=== PATIENT | male | born 1970 | race Caucasian/White ===

== ENCOUNTER → 2018-01-31 09:48 | Outpatient (POV) | payer BC, SELFPAY | PROVIDERS: Visit Provider Otolaryngology | DX: Z00.00 Encounter for general adult medical examination without abnormal findings (principal) ==

== ENCOUNTER → 2019-06-19 09:59 | Outpatient (POV) | payer BC, SELFPAY | PROVIDERS: PCP Family Medicine; Visit Provider Dermatology | DX: Z00.00 Encounter for general adult medical examination without abnormal findings (principal) ==

== ENCOUNTER → 2019-11-30 09:35 | Outpatient (CLI) | payer BC, SELFPAY ==
--- NOTE | 2019-11-30 09:39 | XR_ITS ---
PROCEDURE: XR WRIST LT MIN 3V CLINICAL INDICATION: LT wrist pain Chronic wrist pain. History of carpal tunnel syndrome. COMPARISON: No exams were available for comparison FINDINGS: No fracture or dislocation. No lytic or blastic change. There is normal mineralization. The joint spaces are well-preserved. No significant degenerative/arthritic changes. No erosive changes evident. Other findings:None. IMPRESSION: 1. No acute findings. Dictated by: Keyon Ledezma 11/30/2019 10:16 Electronically signed by Keyon Ledezma in [facility] 11/30/2019 10:16
--- NOTE | 2019-11-30 10:57 | XR_ITS ---
PROCEDURE: XR CERVICAL SPINE 3V CLINICAL INDICATION: neck pain Chronic neck pain. COMPARISON: No exams were available for comparison FINDINGS: The cervical vertebra are visualized from C1-C7. No acute fracture is identified. Chronic appearing mild/moderate compression deformities of the cervical vertebra are seen at multiple levels. Mild/moderate degenerative disc/endplate spondylitic changes are seen at C3-C4 C5-C6, C6-C7 and C7-T1 levels. Other findings:The vertebral bodies maintain normal alignment. There is no prevertebral soft tissue swelling. IMPRESSION: 1. Osteopenia. Mild/moderate cervical vertebral compression deformities seen, likely chronic. 2. Multilevel mild/moderate degenerative cervical spondylosis. Dictated by: Keyon Ledezma 11/30/2019 11:36 Electronically signed by Keyon Ledezma in [facility] 11/30/2019 11:36
== END ==
PROVIDERS: PCP Family Medicine; Visit Provider Orthopaedic Surgery
DX: M54.2 Cervicalgia (principal); M25.532 Pain in left wrist; G56.00 Carpal tunnel syndrome, unspecified upper limb
CPT/HCPCS: 72040; 73110

== ENCOUNTER → 2019-12-27 14:47 | Outpatient (CLI) | payer BC, SELFPAY ==
--- NOTE | 2019-12-27 14:53 | CT_ITS ---
PROCEDURE: CT ABDOMEN PELVIS WO CON CLINICAL INDICATION: HEMATURIA COMPARISON: CT ABDPELW/O CT ABD PELVIS W/O CONTRAST from 05/06/2013 TECHNIQUE: Axial images obtained with sagittal and coronal reformats. All CT scans at the facility use one or more dose reduction, viz: automated exposure control, ma/kV adjustment per patient size (including targeted exams where dose is matched to indication, i.e. head), or iterative reconstruction technique. FINDINGS: LOWER THORAX: No acute finding ABDOMEN & PELVIS: There is mild hepatic steatosis. No focal liver lesion is evident. The spleen, adrenal glands, and pancreas have an unremarkable appearance. There is a horseshoe kidney. A 6.3 cm cyst is present along the posterior aspect of the right kidney. There is a 3 mm stone in the right moiety laterally. A 7 mm stone is present at the ureteral pelvic junction on the right with mild right-sided hydronephrosis. There is a 2 mm stone in the left moiety. No ureteral calculi evident. No evidence of appendicitis, intestinal obstruction, free air, or diverticulitis. There are scattered colonic diverticula. Central prostate calcification is noted. There is a small umbilical hernia which contains fat. There is multilevel degenerative changes of the thoracic and lumbar spine. IMPRESSION: 1. There is a horseshoe kidney present with bilateral renal calculi and a 7 mm right ureteropelvic junction stone with mild right renal moiety hydrocephalus. No ureteral calculi. 2. Right renal cyst. 3. Fatty liver Dictated by: Kamran Moralez MD 12/27/2019 17:50 Kamran Moralez MD in [facility] 12/27/2019 17:50
== END ==
PROVIDERS: PCP Family Medicine; Visit Provider Family Medicine
DX: R31.0 Gross hematuria (principal)
CPT/HCPCS: 74176

== ENCOUNTER → 2020-01-01 15:38 | Outpatient (CLI) | payer BC, SELFPAY ==
--- NOTE | 2020-01-01 15:42 | XR_ITS ---
PROCEDURE: XR KUB CLINICAL INDICATION: ureteral stone COMPARISON: CT CT ABDOMEN PELVIS WO CON from 12/27/2019 FINDINGS: Has a known horseshoe kidney. There is an 8 mm calcific density to the right of L4 consistent with the stone within the right renal moiety. In addition, there is a 3 cm rectangular shaped density to the right of L3 and may be due to overlying artifact. There are degenerative changes in the lumbar spine. No obvious ureteral calculi. IMPRESSION: Right-sided renal stone within the right renal moiety of the horseshoe kidney. Dictated by: Kamran Moralez MD 01/01/2020 16:04 Kamran Moralez MD in [place] 01/01/2020 16:04
== END ==
PROVIDERS: PCP Family Medicine; Visit Provider Urology
DX: N20.1 Calculus of ureter (principal)
CPT/HCPCS: 74018

== ENCOUNTER → 2020-01-24 12:49 | Outpatient (CLI) | payer BC, SELFPAY ==
[2020-01-24 14:02] LABS: Basophils % 0.6 % (0.1-2.0); Eosinophils # 0.2 K/mm3 (0.0-0.4); Eosinophils % 2.3 % (0.1-12.0); Hemoglobin 14.2 g/dL (14.1-18.0); Lymphocytes # 1.7 K/mm3 (0.7-4.5); Lymphocytes % 26.2 % (10-50); Mean Corpuscular HGB Conc 33.8 g/dL (31.8-35.4); Mean Corpuscular Hemoglobin 30.8 pg (27.0-31.2); Mean Corpuscular Volume 91.2 fl (80-94); Mean Platelet Volume 7.8 fl (7.4-10.4); Monocytes # 0.4 K/mm3 (0.1-1.0); Monocytes % 5.3 % (1.7-9.3); Neutrophils # 4.3 K/mm3 (1.8-7.8); Neutrophils % 65.5 % (37.0-80.0); Platelet Count 252 K/mm3 (142-424); Red Blood Count 4.61 M/mm3 (4.60-6.20); White Blood Count 6.5 K/mm3 (4.8-10.8)
[2020-01-24 14:35] LABS: Anion Gap 11.6 mEq/L (5-15); Blood Urea Nitrogen 16 mg/dl (9-20); Calcium 9.6 mg/dl (8.4-10.2); Carbon Dioxide 29 mmol/L (22.0-30.0); Chloride 105 mmol/L (98-107); Estimated Glomerular Filt Rate 103 ml/min (>60); GFR (African American) 124 ML/MIN (>60); Glucose 109 mg/dl (74-100); Potassium 4.6 mmoL/L (3.5-5.1); Sodium 141 mmol/L (136-145)
[2020-01-24 20:13] LABS: Coronavirus 19 IgG Antibody Negative (Negative); Coronavirus 19 IgM Antibody Negative (Negative)
== END ==
PROVIDERS: Visit Provider Urology
DX: Z01.89 Encounter for other specified special examinations (principal); R32 Unspecified urinary incontinence; N20.1 Calculus of ureter
CPT/HCPCS: 36415; 80048; 85025; 86328

== ENCOUNTER 2020-01-25 11:27 | Day surgery (SDC) | payer BC, SELFPAY ==
[2020-01-24 08:58] VITALS: BMI 47.5
[2020-01-25] VITALS (11 sets, daily range): BP systolic 121–155; BP diastolic 70–97; PULSE 54–66; RESP 14–18; TEMP 35.8–36.4; O2SAT 93–98
--- NOTE | 2020-01-25 13:53 | P.PN_ITS ---
[facility] Anesthesia Checklist - Patient Identification Patient Identification: Arm Band, Verbal (Name & ) - Structural Data Admitted From: Home Planned Operative Procedure/s: ESWL - NPO Status Verified Time NPO: 00:00 - Chart Verification Results Verified: CBC, BMP - Additional verifications Anesthesia Reactions: No Hx Blood Transfusions: No Blood Transfusion Reaction: No - Airway Assessment C-Spine Mobility Assessed: Yes (Thick neck, large tongue, supple, MP 4, ) TMJ Mobility Assessed: Yes Dentition: Good Dentition - Neurological Assessment Level of Consciousness: Awake, Alert, Appropriate, Follows Commands Hx Seizures: No Numbness or tingling in extremities: No - Anesthesia Plan Anesthesia Risk discussed: Yes Anesthesia Plan: Verified ASA Class: III Anesthesia Type: MAC [facility] History I have reviewed the patient's past medical history: Yes Medical History: Reports:: Asthma, Hypertension, Kidney Stones Denies:: Cancer, Diabetes Mellitus Type 1, Diabetes Mellitus Type 2, Internal Pacemaker, MRSA, Seizures *Have you ever received a pneumonia vaccine?: No *Have you received a flu vaccine this season?: No Other Medical History: Reports: Sinus Problems. Denies: Blood Transfusion Reaction Comment:: Morbid obesity, RADHA uses CPAP Anesthesia experience/problems:: none Laterality Cases: Bilateral: Myringotomy (Ear Tubes), Tonsillectomy Other Surgeries: Yes: No Previous Surgery, Colonoscopy, Other. No: Pacemaker Amputation: No Fractures: No - *Social History Last grade of school completed: High school graduate Smoking Status: Former smoker Tobacco Type: cigarettes Alcohol Intake: never Alcohol Intake Frequency:: other Substance Use Type: denies use *Occupational Status:: employed Housing: house Household Members: none *Travel in the last 8 weeks: Inside the [facility] Family Hx:: Hypertension, Cancer, Diabetes
--- NOTE | 2020-01-25 14:16 | HMH.ANESI ---
[facility] Anesthesia Record Part I Intake, IV Amount: 500 Estimated blood loss (mL): 0 Urine output (mL): 0 Blood Products used (#): none Blood Pressure: 155/79 SaO2: 95 Pulse Rate: 66 Respiratory Rate: 18 Temperature: 96.5 F Patient is:: Awake, Drowsy, Stable Stable to PACU at:: 14:12
--- NOTE | 2020-01-25 16:36 | P.OP_ITS ---
Date of procedure: 01/25/20 Pre-op Diagnosis:: 8 mm right proximal ureteral stone and a horseshoe kidney Post-op Diagnosis:: Same Procedure performed:: Right ESWL, cystoscopy with right ureteral stone manipulation Surgeon:: Prabhakar Bang MD SELF PROPELLED HOT MIX ROLLER OPERATOR:: hTien Martins Anesthesia: GETA Estimated blood loss (mL): 0 Clinical Note:: 49-year-old white male with a 8 mm proximal right ureteral stone. He denies any pain but has had some gross hematuria. CT scan is shown a horseshoe kidney. Operative findings:: Stone in the right proximal ureter. It was manipulated back into the renal pelvis. ESWL been performed. Operative note:: Patient taken to the operating room after informed consent was obtained. Is placed on the operating table in the supine position and general anesthesia administered. Preoperative antibiotics and sequential compression devices placed. He was then placed into the dorsolithotomy position and prepped and draped in the standard surgical fashion. The 22 Tamazight cystoscope then passed into the urethra and into the bladder. The bladder was examined in a systematic fashion and showed no evidence of mucosal abnormalities, stones or trabeculation. The ureteral orifices in the normal anatomic position. The right ureteral orifice was a little narrow but a 5 Tamazight ureteral catheter was able to be placed into the ureteral orifice and under fluoroscopy was passed up to the level of the stone. We were able to manipulate the stone more proximally and it passed upwards and to the right and into the renal pelvis. The cystoscope removed but we left ureteral catheter indwelling during the ESWL portion. Patient then placed into the supine position and positioned so that F2 the lithotripter was focused onto the 8 mm renal stone. 3000 shockwaves been delivered to the stone. Patient tolerated procedure well no complications. The ureteral catheter was removed at the end of the case. Condition: stable Disposition: PACU Specimens:: None Complications:: None
--- NOTE | 2020-01-25 17:54 | HMH.ANESII ---
[facility] Anesthesia Record Part II Discharge Time: 14:44 Destination: Surgical Day Care (OP Surgery) PACU nurse assessment reviewed?: Yes Patient Condition:: Good Anesthesia Complications:: None Swallowing reflex intact?: Yes Cyanosis?: No Blood Pressure: 150/97 Pulse Rate: 54 Temperature: 97.5 F Mental Status: Alert & Oriented Pain level:: 0 Nausea and/or vomitting:: None Intake, IV Amount: 0
== END 2020-01-25 15:35 | disposition home or self-care (01) ==
LOC: OR 11:27
PROVIDERS: PCP Family Medicine; Visit Provider Urology
PROC: (CPT 50590; principal; 2020-01-25 12:00)
DX: N20.1 Calculus of ureter (principal); Q63.1 Lobulated, fused and horseshoe kidney; Z87.442 Personal history of urinary calculi; J45.909 Unspecified asthma, uncomplicated; I10 Essential (primary) hypertension; G47.33 Obstructive sleep apnea (adult) (pediatric); E66.9 Obesity, unspecified; Z96.22 Myringotomy tube(s) status; Z87.891 Personal history of nicotine dependence; Z68.42 Body mass index [BMI] 45.0-49.9, adult; Z88.8 Allergy status to other drugs, medicaments and biological substances; Z79.899 Other long term (current) drug therapy
CPT/HCPCS: 50590; 52341; 52330; 96374; J2405

== ENCOUNTER → 2020-02-08 13:48 | Outpatient (CLI) | payer BC, SELFPAY ==
--- NOTE | 2020-02-08 13:56 | XR_ITS ---
PROCEDURE: XR KUB CLINICAL INDICATION: uretheral stone Status post stone extraction COMPARISON: CT CT ABDOMEN PELVIS WO CON from 12/27/2019 FINDINGS: There is history of horseshoe kidney with a stone in the right renal moiety at the UV junction. No definite stone apparent. Hyperostosis is present at the iliac crest. Degenerative changes lumbar spine. IMPRESSION: No obvious renal or ureteral calculus evident. Dictated by: Kamran Moralez MD 02/08/2020 17:02 Kamran Moralez MD in [place] 02/08/2020 17:02
== END ==
PROVIDERS: PCP Family Medicine; Visit Provider Urology
DX: N21.1 Calculus in urethra (principal)
CPT/HCPCS: 74018

== ENCOUNTER → 2020-02-08 16:30 | Outpatient (CLI) | payer BC, SELFPAY ==
[2020-02-17 18:19] LABS: Specimen Type STONE
[2020-02-17 18:22] LABS: Ammonium acid urate 0; Ca oxalate dihydrate 100%; Calcium bilirubinate 0; Calcium carbonate 0; Calcium phosphate 0; Cholesterol 0; Magnesium ammon phos 0; Sodium acid urate 0; Uric acid dihydrate 0
[2020-02-17 18:23] LABS: Photo SCANNED RESULTS
== END ==
PROVIDERS: Visit Provider Urology
DX: N21.1 Calculus in urethra (principal)
CPT/HCPCS: 82370

== ENCOUNTER → 2020-03-31 11:49 | Outpatient (CLI) | payer BC, SELFPAY ==
[2020-03-31 11:52] LABS: MANUAL DIFFERENTIAL MANUAL DIFFERENTIAL (MANUAL DIFF)
[2020-03-31 12:26] LABS: Basophils # 0.1 K/mm3 (0-0.2); Basophils % 0.9 % (0.1-2.0); Eosinophils # 0.1 K/mm3 (0.0-0.4); Eosinophils % 1.9 % (0.1-12.0); Hematocrit 44.4 % (42.0-52.0); Hemoglobin 15.2 g/dL (14.1-18.0); Lymphocytes # 1.9 K/mm3 (0.7-4.5); Lymphocytes % 26.3 % (10-50); Mean Corpuscular HGB Conc 34.2 g/dL (31.8-35.4); Mean Corpuscular Hemoglobin 30.6 pg (27.0-31.2); Mean Corpuscular Volume 89.3 fl (80-94); Mean Platelet Volume 7.6 fl (7.4-10.4); Monocytes # 0.5 K/mm3 (0.1-1.0); Monocytes % 6.6 % (1.7-9.3); Neutrophils # 4.7 K/mm3 (1.8-7.8); Neutrophils % 64.3 % (37.0-80.0); Platelet Count 272 K/mm3 (142-424); Red Blood Count 4.97 M/mm3 (4.60-6.20); Red Cell Distribution Width 13.9 % (11.5-17.5); White Blood Count 7.2 K/mm3 (4.8-10.8)
[2020-03-31 13:35] LABS: Chloride 105 mmol/L (98-107); Potassium 3.9 mmoL/L (3.5-5.1); Sodium 140 mmol/L (136-145)
[2020-03-31 13:38] LABS: Alanine Aminotransferase 70 U/L (12-78); Albumin Level 4.3 g/dl (3.5-5.0); Albumin/Globulin Ratio 1.9 (1.1-1.8); Alkaline Phosphatase 74 U/L (38-126); Aspartate Amino Transferase 52 U/L (17-59); Bilirubin,Total 0.7 mg/dl (0.2-1.3); Blood Urea Nitrogen 12 mg/dl (9-20); Carbon Dioxide 29 mmol/L (22.0-30.0); Estimated Glomerular Filt Rate 103 ml/min (>60); GFR (African American) 124 ML/MIN (>60); Globulin 2.3 g/dL (1.3-3.2); Total Protein,Serum 6.6 g/dl (6.3-8.2)
[2020-03-31 13:39] LABS: Calcium 9.5 mg/dl (8.4-10.2); Glucose 93 mg/dl (74-100)
[2020-03-31 13:53] LABS: Coronavirus 19 IgG Antibody Negative (Negative); Coronavirus 19 IgM Antibody Negative (Negative)
[2020-03-31 15:17] LABS: Lymphocytes % 39 % (10-50); Monocytes % 9 % (2-9); Neutrophils % 52 % (42-76); Platelet Estimate Normal; Total Cells Counted 100
[2020-03-31 15:18] LABS: RBC Morphology Normal
--- NOTE | 2020-04-01 08:52 | P.PN_ITS ---
[facility] Anesthesia Checklist - Patient Identification Patient Identification: Arm Band, Verbal (Name & ) - Structural Data Admitted From: Home Planned Operative Procedure/s: Left CTR Consent for Planned Operative Procedure(s) Verified: Yes Verified Documents: Surgical Consent, History and Physical - NPO Status Verified Time NPO: 23:30 - Chart Verification Results Verified: CBC, BMP - Additional verifications Anesthesia Reactions: No Hx Blood Transfusions: No Blood Transfusion Reaction: No - Airway Assessment C-Spine Mobility Assessed: Yes (MP 3, thick neck, large tongue) TMJ Mobility Assessed: Yes Dentition: Good Dentition - Neurological Assessment Level of Consciousness: Awake, Alert, Appropriate, Follows Commands Hx Seizures: No Numbness or tingling in extremities: No - Anesthesia Plan Anesthesia Risk discussed: Yes Anesthesia Plan: Verified ASA Class: III Anesthesia Type: MAC [facility] History I have reviewed the patient's past medical history: Yes Medical History: Reports:: Asthma, Coronary Artery Disease, Hypertension, Kidney Stones Denies:: Cancer, Diabetes Mellitus Type 1, Diabetes Mellitus Type 2, Internal Pacemaker, MRSA, Seizures *Have you ever received a pneumonia vaccine?: No *Have you received a flu vaccine this season?: Yes Other Medical History: Reports: Sinus Problems, Thyroid Disease. Denies: Blood Transfusion Reaction Comment:: RADHA uses CPAP, morbid obesity Anesthesia experience/problems:: None Laterality Cases: Bilateral: Myringotomy (Ear Tubes), Tonsillectomy Other Surgeries: Yes: Colonoscopy, Ureter Stent, Other. No: Pacemaker Amputation: No Fractures: No - *Social History Smoking Status: Never smoker Tobacco Type: cigarettes Alcohol Intake: never Alcohol Intake Frequency:: other Substance Use Type: denies use *Occupational Status:: employed Housing: house Household Members: none *Travel in the last 8 weeks: None Family Hx:: Hypertension, Cancer, Diabetes
== END ==
PROVIDERS: Visit Provider Orthopaedic Surgery
DX: Z01.818 Encounter for other preprocedural examination (principal); G56.02 Carpal tunnel syndrome, left upper limb
CPT/HCPCS: 36415; 80053; 85007; 85014; 85018; 85048; 85049; 86328

== ENCOUNTER 2020-04-01 06:10 | Day surgery (SDC) | payer BC, SELFPAY ==
[2020-03-25 13:00] VITALS: BMI 48.3
[2020-04-01 06:28] VITALS: BP 149/80; PULSE 60; RESP 20; TEMP 36.1; O2SAT 97
[2020-04-01 07:10] VITALS: PULSE 59; PULSE 60
[2020-04-01 08:50] VITALS: BP 136/78; PULSE 71; RESP 16; TEMP 36.5; O2SAT 95
[2020-04-01 09:00] VITALS: BP 133/85; PULSE 71; RESP 16; O2SAT 94
[2020-04-01 09:10] VITALS: BP 135/85; PULSE 68; RESP 16; O2SAT 94
[2020-04-01 09:20] VITALS: BP 137/87; PULSE 68; RESP 16; TEMP 36.5; O2SAT 94
--- NOTE | 2020-04-01 16:23 | HMH.OPNOTE ---
Date of procedure: 04/01/20 Pre-op Diagnosis:: LEFT median nerve compression at the wrist (carpal tunnel syndrome) Post-op Diagnosis:: LEFT median nerve compression at the wrist (carpal tunnel syndrome) Procedure performed:: LEFT carpal tunnel release Surgeon:: Calli Peña MD Packing Tractor Machine Operator(s):: Erica Sandra PLANT DIRECTOR:: Thien Martins Anesthesia: MAC, local Estimated blood loss (mL): 5 Clinical Note:: 49-year-old [id number]-yrubspwa gentleman with left upper extremity pain, numbness and tingling. He says that he was diagnosed with carpal tunnel syndrome 20 years ago and did not have any treatment at that time. It subsequently got better and he did well for many years, but he has had around 6 months of pain, numbness and tingling on the radial side of the left hand, extending up the radial side of the wrist. It does wake him up at night, and has not been improved by brace wear. The brace appears to make his pain worse. He has tried NSAIDs and ice as well with no improvement. Medical history significant for hypertension, hypercholesterolemia, asthma, and seasonal allergies. No history of diabetes or other endocrine abnormalities. He is a non-smoker, BMI is 47. He reports a history of chronic neck pain and a remote history of a cervical compression fracture that was treated nonoperatively. EMG-NCS BUE at [facility] 12/24/19 showed evidence of bilateral carpal tunnel syndrome, electrophysiologically moderate. I discussed treatment options with the patient, who desires surgical intervention; I believe this is warranted given duration/severity of symptoms and EMG-NCS findings. I discussed the risks of surgery, including but not limited to: bleeding, infection, neurovascular damage, wound dehiscence, persistence of symptoms despite surgery, recurrence of CTS and need for revision surgery in the future. The patient vocalized understanding and provided informed consent for the procedure. Operative findings:: median nerve entrapment at the left wrist Operative note:: The patient was identified in preoperative holding and the L wrist signed by myself. He was then seen by anesthesia and the decision was made to perform the surgery with local anesthesia and MAC. I reviewed the consent with the patient and all questions were answered. The patient was then taken to the OR where he was placed supine on the operative table with a hand table attached. 3g of Ancef were infused intravenously and light sedation administered. The left arm was prepped and draped in the usual sterile fashion. Timeout was performed, identifying the correct patient, correct procedure, and correct site. Local anesthesia was then administered sterilely with 10cc 0.5% marcaine without epinephrine. The procedure was begun by using anatomic landmarks to draw the desired surgical incision with marking pen. The incision was drawn over the volar aspect of the left wrist at the intersection of Shay's cardinal line and the radial border of the ring finger, extending proximally to the wrist flexion crease. The arm was exsanguinated wtih an Esmarch and the tourniquet inflated to 250mmHg. Incision was made with a 15 blade over the previously delineated incision. After the skin was incised, a blunt-tipped tenotomy scissors was used to bluntly spread the subcutaneous tissue. Tissue was spread until the transverse carpal ligament was identified. The proximal margin of the ligament was palpated with a [place] elevator. I was able to slip the tip of the free air under the proximal edge of the transverse carpal ligament and into the carpal tunnel. Using a fresh 15 blade, I lightly teased to the fibers of the transverse carpal ligament and release them from proximally to distally using the [place] to protect the underlying carpal tunnel contents. I continued to cut down onto the [place] moving distally, until the entire transverse carpal ligament was released. Then, using the blunt tenotomy scissors, I push cut around 5 mm of
== END 2020-04-01 09:28 | disposition home or self-care (01) ==
LOC: OR 06:11
PROVIDERS: PCP Family Medicine; Visit Provider Orthopaedic Surgery
PROC: (CPT 64721; principal; 2020-04-01 07:30)
DX: G56.02 Carpal tunnel syndrome, left upper limb (principal); Z79.899 Other long term (current) drug therapy
CPT/HCPCS: 64721; 94640; 96374

== ENCOUNTER 2020-04-07 13:14 | Emergency (ER) | payer BC, SELFPAY ==
[2020-04-07 13:50] VITALS: BP 146/92; PULSE 76; RESP 19; TEMP 36.6; O2SAT 97; BMI 48.3
--- NOTE | 2020-04-07 14:18 | HMH.EDUTC ---
[facility] [place] Clinical Impression: Exposure to COVID-19 virus, Encounter for laboratory testing for COVID-19 virus URI (upper respiratory infection) Qualifiers: URI type: unspecified URI Qualified Code(s): J06.9 - Acute upper respiratory infection, unspecified Disposition: Home, Self-Care Condition on Discharge: Good Instructions: Preventing the Spread of Coronavirus Discharge Instructions Additional Instructions: *Monitor Temp, Over the counter Motrin or Tylenol as directed/as needed Tylenol every 4 hours and Motrin every 6 hours (as long as your family doctor has told you that you can take it) for fever or pain. and straight to ER if unable to lower temp less than 101.0 after medication given *Warm salt water gargles may help to soothe the throat *Throat Lozenges *Warm fluids like tea with honey may help to soothe the throat *Sleep elevated *Humidifier/Vaporizer Follow up IMMEDIATELY for new or worsening symptoms or no Noticeable improvement over the next 48-72 hours. 911 for difficulty breathing or swallowing You were tested for today for COVID19 your test result should be back in the next 24-48 hours, you may call to the [facility] to see if your test results are back in the next 48 hours [phone] [facility] hours are 9am-9pm You was given a handout with instructions for Self Quarantine and Self isolation for while you wait on test results and what to do if they are positive If you are positive the Health Dept will be contacting you also Prescriptions: Azithromycin [Zithromax 250mg tab] 250 mg PO DIRECTED #6 tab Transmission Status: Pending to [facility] Referrals: Brock Edwards MD [Primary Care Provider] - As needed Forms: Work/School Release Time of Disposition: 14:19 Medical Decision Making - Eric Inquiry Pt receiving controlled substance: No Eric was queried for this patient: No Vital Signs: 04/07/20 13:50 Temperature 97.8 F Temperature Source Oral Pulse Rate [Left] 76 Respiratory Rate 19 Blood Pressure [Right Arm] 146/92 H Blood Pressure Mean [Right Arm] 110 Blood Pressure Source [Right Arm] Automatic Cuff Blood Pressure Position [Right Arm] Sitting 02 Sat by Pulse Oximetry 97 Oxygen Delivery Method Room Air Orders (Tests/Meds): ORDERS Category Date Time Status Covid-19 Nasal PCR Sendout [facility] 04/07/20 13:30 Received Medical Decision Narrative: Patient states that he has taken azithromycin in the past without complications or reactions [facility] [place] - General Stated complaint: exposure,cough,achey,loss of taste and smell Time Seen by Provider: 04/07/20 14:18 Source of Information: Patient Limitations: No Limitations Description of Symptoms (Recalled from Triage Doc. by RN): Covid testing-symptomatic- HEENT Symptoms (Recalled from RN notes): No Resp Symptoms (Recalled from RN notes): No Skin Symptoms (Recalled from RN notes): No MS Symptoms (Recalled from RN notes): No Functional Status (Recalled from RN notes): wnl - History of Present Illness Provider Complaint: Patient states that he wanted to get tested for COVID States that he has been having body aches, chills, sinus pain and pressure and was recently around family member that has since tested positive State that he is having similary symptoms like he has when he has sinus infection - Related Data Home Medications Medication Instructions Recorded Confirmed montelukast 10 mg tablet 10 mg PO QPM 03/08/18 04/01/20 allopurinol 100 mg tablet 300 mg PO DAILY tab 12/30/18 04/01/20 losartan 100 mg tablet 100 mg PO DAILY 12/30/18 04/01/20 levocetirizine 5 mg tablet 5 mg PO DAILY 03/24/19 04/01/20 budesonide-formoterol HFA 80 2 puff INHALATION BID 11/30/19 04/01/20 mcg-4.5 mcg/actuation aerosol inhaler fluticasone propionate 50 2 spray INTRANASAL DAILY 11/30/19 04/01/20 mcg/actuation nasal spray,suspension liraglutide (weight loss) 3 mg/0.5 3 mg SQ DAILY 11/30/19 04/01/20 mL (18 mg/
[2020-04-07 14:46] VITALS: BP 146/92; PULSE 76; RESP 19; TEMP 36.6; O2SAT 97
[2020-04-09 13:51] LABS: Covid-19 Nasal PCR Sendout Lex POSITIVE
--- NOTE | 2020-04-09 13:55 | PC.NURSE ---
Patient notified of positive COVID results. Educated on quarantine.
== END 2020-04-07 14:46 | disposition home or self-care (01) ==
PROVIDERS: Emergency Provider Nurse Practitioner; PCP Family Medicine
DX: U07.1 COVID-19 (principal); I10 Essential (primary) hypertension; Z79.899 Other long term (current) drug therapy; I25.10 Atherosclerotic heart disease of native coronary artery without angina pectoris; Z88.8 Allergy status to other drugs, medicaments and biological substances; Z87.442 Personal history of urinary calculi
CPT/HCPCS: 99201; U0004

== ENCOUNTER → 2020-07-08 11:10 | Outpatient (CLI) | payer BC, SELFPAY ==
--- NOTE | 2020-07-08 11:15 | XR_ITS ---
PROCEDURE: XR KNEE LT 3V CLINICAL INDICATION: ACUTE PAIN OF LT KNEE COMPARISON: No exams were available for comparison FINDINGS: Medial and lateral joint space appear normal. There is a tiny faint bone density adjacent to the medial tibial spine which could be a tiny non recent osteochondral fracture. There is minor spurring of the lateral tibial spine. There is no significant narrowing of the patellofemoral space and there is no definite effusion. There is a small ossification or possibly phlebolith in the subcutaneous tissues lateral thigh at approximately the diametaphyseal level. IMPRESSION: Minor degenerate change, no acute findings Dictated by: Dr. Brandan Reis MD 07/08/2020 13:47 Dr. Brandan Reis MD in [place] 07/08/2020 13:47
== END ==
PROVIDERS: PCP Family Medicine; Visit Provider Family Medicine
DX: M25.562 Pain in left knee (principal)
CPT/HCPCS: 73562

== ENCOUNTER → 2021-01-21 12:06 | Outpatient (CLI) | payer BC, SELFPAY ==
--- NOTE | 2021-01-21 12:15 | XR_ITS ---
PROCEDURE: XR CHEST 2V CLINICAL HISTORY: sob COMPARISON: CR CXR CHEST(2 VIEWS-NOT PORTABLE) from 05/06/2013 CR CXR CHEST(2 VIEWS-NOT PORTABLE) from 05/07/2016 FINDINGS: The cardiomediastinal silhouette and pulmonary vascularity are within normal limits. The lungs are clear without infiltrates, suspicious nodules, or pleural effusions. Old granulomatous disease Degenerative changes thoracic spine IMPRESSION: No change with no acute finding Dictated by: Kamran Moralez MD 01/21/2021 18:07 Kamran Moralez MD in [place] 01/21/2021 18:07
[2021-01-21 12:29] LABS: Basophils # 0.1 K/mm3 (0-0.2); Basophils % 1.5 % (0.1-2.0); Eosinophils # 0.2 K/mm3 (0.0-0.4); Eosinophils % 2.2 % (0.1-12.0); Hematocrit 43.8 % (42.0-52.0); Hemoglobin 14.8 g/dL (14.1-18.0); Lymphocytes % 29.4 % (10-50); Mean Corpuscular HGB Conc 33.8 g/dL (31.8-35.4); Mean Corpuscular Hemoglobin 31.6 pg (27.0-31.2); Mean Corpuscular Volume 93.4 fl (80-94); Mean Platelet Volume 8.7 fl (7.4-10.4); Monocytes # 0.4 K/mm3 (0.1-1.0); Monocytes % 6.2 % (1.7-9.3); Neutrophils # 4.1 K/mm3 (1.8-7.8); Neutrophils % 60.7 % (37.0-80.0); Platelet Count 265 K/mm3 (142-424); Red Blood Count 4.69 M/mm3 (4.60-6.20); Red Cell Distribution Width 13.8 % (11.5-17.5); White Blood Count 6.8 K/mm3 (4.8-10.8)
[2021-01-21 12:41] LABS: D-Dimer 0.62 ug/mL (0.0-0.5)
[2021-01-25 08:17] LABS: D001-IgE D pteronyssinus 0.37 kU/L (Class I); D002-IgE D farinae 0.41 kU/L (Class I); E001-IgE Cat Dander 0.77 kU/L (Class II); E005-IgE Dog Dander 1.26 kU/L (Class II); E072-IgE Mouse Urine <0.10 kU/L (Class 0); G002-IgE Bermuda Grass 2.81 kU/L (Class III); G006-IgE Timothy Grass 3.67 kU/L (Class III); I006-IgE Cockroach, German 2.76 kU/L (Class III); Immunoglobulin E, Total 751 IU/mL (6-495); M001-IgE Penicillium chrysogen <0.10 kU/L (Class 0); M002-IgE Cladosporium herbarum <0.10 kU/L (Class 0); M003-IgE Aspergillus fumigatus <0.10 kU/L (Class 0); M006-IgE Alternaria alternata <0.10 kU/L (Class 0); T001-IgE Maple/Box Elder 1.84 kU/L (Class III); T003-IgE Common Silver Birch 0.71 kU/L (Class II); T006-IgE Cedar, Mountain 0.98 kU/L (Class II); T007-IgE Oak, White 2.21 kU/L (Class III); T008-IgE Elm, American 1.96 kU/L (Class III); T010-IgE Walnut 2.24 kU/L (Class III); T011-IgE Maple Leaf Sycamore 1.82 kU/L (Class III); T014-IgE Cottonwood 0.92 kU/L (Class II); T015-IgE Ash, White 2.54 kU/L (Class III); T022-IgE Pecan, Hickory 1.28 kU/L (Class II); T070-IgE White Mulberry 0.94 kU/L (Class II); W001-IgE Ragweed, Short 3.29 kU/L (Class III); W011-IgE Thistle, Russian 4.41 kU/L (Class IV); W014-IgE Pigweed, Common 2.01 kU/L (Class III); W018-IgE Sheep Sorrel 4.37 kU/L (Class IV)
== END ==
PROVIDERS: Visit Provider Internal Medicine Pulmonary Disease
DX: Z86.16 Personal history of COVID-19 (principal); J45.909 Unspecified asthma, uncomplicated; Z20.828 Contact with and (suspected) exposure to other viral communicable diseases
CPT/HCPCS: 36415; 71046; 82785; 85025; 85378; 86003

== ENCOUNTER → 2021-01-27 09:41 | Outpatient (CLI) | payer BC, SELFPAY ==
--- NOTE | 2021-01-27 09:41 | NM_ITS ---
PROCEDURE: NM PUL VENT AND PERFUSE CLINICAL INDICATION: elevated DImer COMPARISON: No exams were available for comparison TECHNIQUE: Dose 35.1 mCi technetium DTPA inhaled 8.57 mCi technetium MAA IV FINDINGS: No mismatching defects evident. There was normal localization of radiopharmaceutical in ventilation and perfusion images. No clumping of the radiopharmaceutical centrally. IMPRESSION: Normal. Dictated by: Kamran Moralez MD 01/27/2021 16:23 Kamran Moralez MD in [facility] 01/27/2021 16:23
--- NOTE | 2021-01-27 10:41 | XR_ITS ---
PROCEDURE: XR CHEST 2V CLINICAL HISTORY: COMPARISON: CR CXR CHEST(2 VIEWS-NOT PORTABLE) from 05/06/2013 CR CXR CHEST(2 VIEWS-NOT PORTABLE) from 05/07/2016 CR XR CHEST 2V from 01/21/2021 FINDINGS: The cardiomediastinal silhouette and pulmonary vascularity are within normal limits. The lungs are clear without infiltrates, suspicious nodules, or pleural effusions. There are degenerative changes in the thoracic with mild chronic wedging of multiple thoracic vertebra with degenerative disc disease. IMPRESSION: No change with no acute finding. Dictated by: Kamran Moralez MD 01/27/2021 11:40 Kamran Moralez MD in [facility] 01/27/2021 11:40
== END ==
PROVIDERS: PCP Family Medicine; Visit Provider Internal Medicine Pulmonary Disease
DX: R06.00 Dyspnea, unspecified (principal); R79.89 Other specified abnormal findings of blood chemistry
CPT/HCPCS: 71046; 78582; A9540; A9567

== ENCOUNTER → 2021-02-24 07:43 | Outpatient (CLI) | payer BC, SELFPAY ==
[2021-02-24 08:30] VITALS: PULSE 64; PULSE 66
== END ==
PROVIDERS: PCP Family Medicine; Visit Provider Internal Medicine Pulmonary Disease
DX: R06.09 Other forms of dyspnea (principal)
CPT/HCPCS: 94060; 94640; 94727; 94729

== ENCOUNTER → 2021-03-09 11:05 | Outpatient (CLI) | payer BC, SELFPAY | PROVIDERS: Visit Provider Surgery | DX: Z01.812 Encounter for preprocedural laboratory examination (principal); Z11.52 Encounter for screening for COVID-19; Z12.11 Encounter for screening for malignant neoplasm of colon; K62.5 Hemorrhage of anus and rectum | CPT/HCPCS: C9803; U0003; U0005 ==

== ENCOUNTER 2021-03-11 10:24 | Day surgery (SDC) | payer BC, SELFPAY ==
[2021-03-06 10:26] VITALS: BMI 48.6
[2021-03-11 10:48] VITALS: BP 155/87; PULSE 56; RESP 18; TEMP 36.3; O2SAT 98
[2021-03-11 10:57] VITALS: O2SAT 98
--- NOTE | 2021-03-11 11:32 | HMH.ANESCL ---
[facility] Anesthesia Checklist - Patient Identification Patient Identification: Arm Band - Structural Data Admitted From: Home Planned Operative Procedure/s: colonoscopy Consent for Planned Operative Procedure(s) Verified: Yes Verified Documents: Surgical Consent, History and Physical - NPO Status Verified Time NPO: 00:00 - Additional verifications Anesthesia Reactions: No Hx Blood Transfusions: No Blood Transfusion Reaction: No - Airway Assessment C-Spine Mobility Assessed: Yes (mp2) TMJ Mobility Assessed: Yes Dentition: Good Dentition - Neurological Assessment Level of Consciousness: Awake, Alert - Anesthesia Plan Anesthesia Risk discussed: Yes Anesthesia Plan: Verified ASA Class: III Anesthesia Type: MAC [facility] History I have reviewed the patient's past medical history: Yes Medical History: Reports:: Asthma, Coronary Artery Disease, Hypertension, Kidney Stones Denies:: Cancer, Diabetes Mellitus Type 1, Diabetes Mellitus Type 2, Internal Pacemaker, MRSA, Seizures *Have you ever received a pneumonia vaccine?: No *Have you received a flu vaccine this season?: Yes Other Medical History: Reports: Sinus Problems, Thyroid Disease. Denies: Blood Transfusion Reaction Anesthesia experience/problems:: nac Laterality Cases: Left: Carpal Tunnel Release, Bilateral: Myringotomy (Ear Tubes), Tonsillectomy Other Surgeries: Yes: Colonoscopy, Ureter Stent, Other. No: Pacemaker Amputation: No Fractures: No - *Social History Last grade of school completed: High school graduate Smoking Status: Never smoker Tobacco Type: cigarettes Alcohol Intake: current Alcohol Intake Frequency:: holidays/special occasions only Substance Use Type: denies use *Occupational Status:: employed Housing: house Household Members: none *Travel in the last 8 weeks: None Family Hx:: Hypertension, Cancer, Diabetes
--- NOTE | 2021-03-11 11:36 | HMH.SCOPE ---
- Procedure: Date: 03/11/21 Patient Date of :: 1970 Procedure Performed:: Total colonoscopy Indications:: Patient is a 50-year-old male referred by Dr. Edwards for colonoscopy for rectal bleeding. I had performed colonoscopy on the patient in 2008 for rectal bleeding. I performed follow-up colonoscopy on 03/02/2016 for stool frequency and he was found to have no evidence of any adenomatous polyps. 5-year colonoscopy was recommended. Patient states that for the past several months he has had rectal bleeding with stools. This is characterized as some fresh blood and occasionally clots. Performing Provider:: Franklin Barrera MD Referring Provider:: Brock Edwards MD Sedation:: MAC sedation Procedure:: Patient was taken to endoscopy procedure room. He was positioned in lateral decubitus position. Adequate intravenous sedation was achieved with anesthesia titration of propofol. Variable stiffness Olympus colonoscope was inserted via the anus. It Was advanced to the cecum. Colonic preparation was excellent. There was good visualization. Colonoscope was slowly withdrawn through the colon with careful surveillance. He did have some degree of pandiverticulosis. There was no evidence of any diverticulitis or bleeding. Retroflexion within the rectum revealed minimal inflamed internal hemorrhoids. Hemorrhoids appeared to be more inflamed and irritated with nonretroflexion visualization. No evidence of any definite bleeding. Colonoscope was withdrawn. Findings:: Some pandiverticulosis Hemorrhoids Recommendations:: Likely source of his bleeding is hemorrhoidal. If this persists may treat medically. Complications:: None immediately apparent Estimated blood obtained (mL): 0
[2021-03-11 11:38] VITALS: BP 143/87; PULSE 64; RESP 18; TEMP 36.7; O2SAT 95
[2021-03-11 11:48] VITALS: BP 132/88; PULSE 61; RESP 18; O2SAT 94
[2021-03-11 11:58] VITALS: BP 140/67; PULSE 57; RESP 18; O2SAT 95
[2021-03-11 12:08] VITALS: BP 143/82; PULSE 51; RESP 18; O2SAT 96
== END 2021-03-11 12:08 | disposition home or self-care (01) ==
LOC: OUTP 10:25
PROVIDERS: PCP Family Medicine; Visit Provider Surgery
PROC: 0DJD8ZZ Inspection of Lower Intestinal Tract, Via Natural or Artificial Opening Endoscopic (ICD-10-PCS; CPT 45378; principal; 2021-03-11 11:30)
DX: K57.32 Diverticulitis of large intestine without perforation or abscess without bleeding (principal); K64.9 Unspecified hemorrhoids; J45.909 Unspecified asthma, uncomplicated; I25.10 Atherosclerotic heart disease of native coronary artery without angina pectoris; I10 Essential (primary) hypertension; E07.9 Disorder of thyroid, unspecified; Z88.8 Allergy status to other drugs, medicaments and biological substances; Z79.899 Other long term (current) drug therapy
CPT/HCPCS: 45378

== ENCOUNTER → 2021-05-29 11:43 | Outpatient (CLI) | payer BC, SELFPAY ==
[2021-05-30 14:56] LABS: Covid-19 Nasal PCR Sendout Lex POSITIVE
== END ==
PROVIDERS: PCP Nurse Practitioner; Visit Provider Nurse Practitioner
DX: U07.1 COVID-19 (principal)
CPT/HCPCS: C9803; U0004; U0005

== ENCOUNTER → 2021-07-08 19:35 | Outpatient (CLI) | payer BC, SELFPAY | PROVIDERS: PCP Family Medicine; Visit Provider Nurse Practitioner Family | DX: G47.33 Obstructive sleep apnea (adult) (pediatric) (principal) | CPT/HCPCS: 95811 ==

== ENCOUNTER → 2021-08-11 07:37 | Outpatient (CLI) | payer SELFPAY ==
--- NOTE | 2021-08-11 07:37 | CT_ITS ---
FINAL REPORT TECHNIQUE: Thin section axial images were obtained through the heart and coronary arteries per CT coronary calcium score protocol. This study was performed with techniques to keep radiation doses as low as reasonably achievable (ALARA). Individualized dose reduction techniques using automated exposure control or adjustment of mA and/or kV according to the patient's size were employed. CLINICAL HISTORY: dyspnea FINDINGS: On the axial images, no calcification is identified. This gives a coronary artery calcium score of 0 based on the Agatston scale. This coronary calcium score places the patient within the 0 percentile based on age and gender. The heart is normal in size. There is no pleural or pericardial effusion. Limited evaluation of the lungs reveal no suspicious nodule. IMPRESSION: Coronary artery calcium score in the 0 percentile. Reviewed, Interpreted and Dictated by Chirag Mcpherson MD Transcribed by Tejal Kenyon Authenticated by Chirag Mcpherson MD on 08/11/2021 11:38:30 AM [facility]
== END ==
PROVIDERS: PCP Family Medicine; Visit Provider Internal Medicine Cardiovascular Disease
DX: Z13.6 Encounter for screening for cardiovascular disorders (principal); R06.00 Dyspnea, unspecified; E11.9 Type 2 diabetes mellitus without complications; I10 Essential (primary) hypertension; R60.9 Edema, unspecified; E66.01 Morbid (severe) obesity due to excess calories; R94.31 Abnormal electrocardiogram [ECG] [EKG]; G47.33 Obstructive sleep apnea (adult) (pediatric); Z68.43 Body mass index [BMI] 50.0-59.9, adult
CPT/HCPCS: 75571

== ENCOUNTER → 2021-08-11 08:04 | Outpatient (CLI) | payer BC, SELFPAY ==
[2021-08-11 09:17] LABS: Chloride 107 mmol/L (98-107); Potassium 4.1 mmoL/L (3.5-5.1); Sodium 139 mmol/L (136-145)
[2021-08-11 09:20] LABS: Anion Gap 7.1 mEq/L (5-15); Blood Urea Nitrogen 16 mg/dl (9-20); Calcium 8.5 mg/dl (8.4-10.2); Carbon Dioxide 29 mmol/L (22.0-30.0); Estimated Glomerular Filt Rate 102 ml/min (>60); GFR (African American) 123 ML/MIN (>60); Glucose 95 mg/dl (74-100)
[2021-08-11 09:30] LABS: NT Pro Brain Natriuretic Pep. 23.2 pg/mL (0-125)
== END ==
PROVIDERS: Visit Provider Internal Medicine Cardiovascular Disease
DX: R06.00 Dyspnea, unspecified (principal); I11.0 Hypertensive heart disease with heart failure; I50.9 Heart failure, unspecified; E66.01 Morbid (severe) obesity due to excess calories; R60.9 Edema, unspecified; G47.33 Obstructive sleep apnea (adult) (pediatric); R94.31 Abnormal electrocardiogram [ECG] [EKG]; Z68.43 Body mass index [BMI] 50.0-59.9, adult
CPT/HCPCS: 36415; 80048; 83880

== ENCOUNTER → 2021-08-14 06:16 | Outpatient (CLI) | payer BC, SELFPAY ==
--- NOTE | 2021-08-14 06:17 | CA_ITS ---
APPROVED REPORT EXAM: Comprehensive 2D, Doppler, and color-flow Echocardiogram Vocational Training Director: Saige Hollis RDCS Ht: 5 ft 8 in Wt: 342lbs BSA: 2.57 BP: 161/97 mmHg Indications: SOA,HTN,EDEMA,MARROQUIN,RADHA 2D Dimensions LVOT 1.92 cm (M/F) 1.5-2.5 M-Mode Dimensions RVDd 3.23 cm (0.9-2.6) LA Diam 4.35 cm (1.9-4.0) LVDd 5.65 cm (3.5-5.7) Ao Diam 3.41 cm (2.0-3.7) LVDs 3.95 cm (3.5-5.7) IVSd 0.89 cm (0.6-1.1) PWd 0.98 cm (0.6-1.1) EF (Teich) 56.70% FS 30.10% EDV (Teich) 156.80 mL ESV (Teich) 67.90 mL LV Diastology E Decel Time 150.00 (160-240 msec) E/A Ratio 1.2 MED E' 7.40 (< 7 cm/sec) E'/MED E' Ratio 8.99 (>14) LAT E' 7.00 (<10 cm/sec) E/LAT E' Ratio 9.50 (>14) Mitral Valve MV E Max Wilfred. 66.00 (40-130 cm/s) MV A Velocity 57.00 (40-130 cm/s) E/A Ratio 1.17 MV Decel. Time 150.00 (160-240 ms) MV PHT 44.00 ms Left Ventricle Left atrium is mildly enlarged, left ventricle is normal size, mild concentric left ventricular hypertrophy, estimated ejection fraction 55% with no regional wall motion abnormality, diastolic parameters are inconclusive. Right Ventricle Right atrium and right ventricle mildly enlarged with normal contractility. Aortic Valve Aortic valve is minimally thickened and fibrosed there is no aortic stenosis or aortic insufficiency. Mitral Valve Mitral valve grossly normal, there is trace mitral regurgitation. Tricuspid Valve Tricuspid grossly normal, there is trace tricuspid regurgitation, tricuspid regurgitation jet procedure inadequate for calculation of the right ventricular systolic pressure. Pulmonic Valve Pulmonic valve is poorly visualized. Great Vessels Aortic root is normal size. Inferior vena cava is poorly visualized. Pericardium No significant pericardial effusion noted. Conclusion 1. Mild biatrial enlargement, normal left ventricular size, mild concentric left ventricular hypertrophy, estimated ejection fraction 55% with no regional wall motion abnormality, diastolic parameters are inconclusive. 2. Mildly enlarged right ventricle with normal contractility. 3. Trace mitral and tricuspid regurgitation. 4. No significant pericardial effusion noted. Electronically signed by : Cornelius Bush MD 08/14/2021 12:54:01
--- NOTE | 2021-08-14 06:17 | CA_ITS ---
APPROVED REPORT Exam: Pharmacologic Technologist: Chasidy Cameron, Ht: 5 ft 8 in Wt: 342 lbs BSA: 2.57 m2 HR: 55 bpm BP: 153/91 mmHg Rhythm: SINUS MARLENE, NON-DIAGNSOTIC Q WAVE INFERIORLY Medical History Medical History: HTN Medications: Amlodipine,,,,, Omeprazole,,,,, Losartan,,,,, Allopurinol,,,,, Duoneb,,,,, Montelukast,,,,, ADVAIR,,,,, Celecoxib,,,,, FluTICASONE,,,,, Levocetirizine,,,,, Lysine,,,,, Xopenex,,,,, Allergies: LISINOPRIL, NAPROXEN Cardiac Risk Factors: HTN, FHX of CAD, Smoking Stress Test Details Test: LEXISCAN HR Resting HR: 53 bpm Max Heart Rate (APMHR): 169.235254 bpm Max HR Achieved: 67 bpm Target HR (85% APMHR): 143.718298 bpm % of APMHR: 39.65 Recovery HR: 59 bpm BP Resting BP: 153/91 mmHg Max BP: 153/91 mmHg Recovery BP: 145.0/89.0 mmHg ECG Resting ECG: SINUS MARLENE, NON-DIAGNOSTIC Q WAVES INFERIORLY Clinical Exercise duration: 04:04 min Highest Stage Achieved: Exercise capacity: 1.0 METs Stress ECG Conclusion PT HAD MILD SOA. NO CP. NO SIGNIFICANT CHANGES. UNREMARKABLE LEXISCAN STRESS. MYOVIEW IMAGES REPORTED SEPARATELY. Test Summary REST 05:16 . . 53 . 153/ 91 . . Stage 1 01:00 . . 65 . . . . Stage 2 01:00 . . 57 . . . . Stage 3 01:00 . . 56 . 148/ 86 . . Stage 4 01:00 . . 59 . 145/ 86 . . Stage 4 01:04 . . 57 . 145/ 86 . Stop exercise at 04:04 RECOVERY 01:00 . . 62 . 150/ 87 . . RECOVERY 02:00 . . 57 . 150/ 87 . . RECOVERY 03:00 . . 56 . 150/ 87 . . RECOVERY 03:15 . . 63 . 145/ 89 . . Electronically signed by : Cornelius Bush MD 08/14/2021 11:11:35
--- NOTE | 2021-08-14 06:17 | NM_ITS ---
APPROVED REPORT Exam: Nuclear Stress Test Indication: obesity, htn, sob, abn ekg, edema, sleep apnea Patient Location: Outpatient Stress Tech: Chasidy Cameron VA Tech:Dania BhaktaSTEPHANIA RT (R)(N)(M) Ht: 5 ft 8 in Wt: 342 lbs HR: 53 bpm BP: 153/91 mmHg BSA: 2.57 m2 BMI: 51.9 History: obesity, htn, sob, abn ekg, edema, sleep apnea Procedure: Patient received a 0.4 mg of intravenous Lexiscan, resting heart rate 53 bpm, resting blood pressure 153/91 mmHg, with Lexiscan maximum heart rate achived was 65 bpm which is Less than 85 % of the maximum predicted heart rate and blood pressure was 148/86 mmHg. With Lexiscan, patient denied any complaint of chest pain. Electrocardiogram Resting electrocardiogram shows sinus rhythm, with Lexiscan there is less than 1.[address] segment depression noted from the baseline EKG. The EKG portion of the Lexiscan is nondiagnostic. Cardiac Stress and Resting SPECT Images: Cardiac Stress and Resting SPECT images were obtained using technetium 99m Myoview 31.1 mCi stress and 10.03 mCi at rest. Gated SPECT for analysis of segmental wall motion and calculation of the ejection fraction also done. Prone images were also obtained. Cardiac stress and resting SPECT images show uniform myocardial activity without segmental perfusion abnormality, computer derived ejection fraction is 55% with no regional wall motion abnormality, right ventricle is normal size and contractility. However there is transient ischemic dilatation of the left ventricle seen, raising the concerns from balanced ischemia, other causes for transient ischemic dilatation include hypertensive heart disease, elevated left ventricular end-diastolic pressure, diabetes and microvascular disease. Conclusion: 1. The EKG portion of the Lexiscan is nondiagnostic. 2. No scintigraphic evidence of reversible ischemia seen, computer derived ejection fraction is 55% with no regional wall motion abnormality, right ventricle is normal size and contractility. However there is transient ischemic dilatation of the left ventricle seen, raising the concerns for presence of balanced ischemia, other causes for transient ischemic dilatation include hypertensive heart disease, elevated left ventricular end-diastolic pressure, diabetes and microvascular disease. 3. Abnormal Lexiscan Myoview study, clinical correlation is recommended. Electronically signed by : Cornelius Bush MD 08/14/2021 11:14:33
== END ==
PROVIDERS: PCP Family Medicine; Visit Provider Internal Medicine Cardiovascular Disease
DX: R06.00 Dyspnea, unspecified (principal); I10 Essential (primary) hypertension; R60.9 Edema, unspecified; R94.31 Abnormal electrocardiogram [ECG] [EKG]; G47.33 Obstructive sleep apnea (adult) (pediatric); E66.01 Morbid (severe) obesity due to excess calories; Z68.43 Body mass index [BMI] 50.0-59.9, adult
CPT/HCPCS: 78452; 93017; 93306; A9502; J2785

== ENCOUNTER → 2021-09-25 14:52 | Outpatient (CLI) | payer BC, SELFPAY ==
[2021-09-25 16:55] LABS: Anion Gap 13.2 mEq/L (5-15); Blood Urea Nitrogen 14 mg/dl (9-20); Calcium 9.4 mg/dl (8.4-10.2); Carbon Dioxide 26 mmol/L (22.0-30.0); Chloride 105 mmol/L (98-107); Estimated Glomerular Filt Rate 102 ml/min (>60); GFR (African American) 123 ML/MIN (>60); Glucose 75 mg/dl (74-100); Potassium 4.2 mmoL/L (3.5-5.1); Sodium 140 mmol/L (136-145)
== END ==
PROVIDERS: Visit Provider Internal Medicine Cardiovascular Disease
DX: R06.00 Dyspnea, unspecified (principal); I10 Essential (primary) hypertension; R60.9 Edema, unspecified; R94.31 Abnormal electrocardiogram [ECG] [EKG]; E66.9 Obesity, unspecified; G47.33 Obstructive sleep apnea (adult) (pediatric); Z68.43 Body mass index [BMI] 50.0-59.9, adult
CPT/HCPCS: 36415; 80048

== ENCOUNTER 2021-11-01 23:18 | Emergency (ER) | payer BC, SELFPAY ==
[2021-11-01 23:31] LABS: Coronavirus 19, PCR Not Detected (NotDetected); Influenza A, PCR Not Detected (NotDetected); Influenza B, PCR Not Detected (NotDetected)
[2021-11-01 23:31] LABS: Microscopic, Urine URINE MICROSCOPIC (MICROSCOPIC)
[2021-11-01 23:35] LABS: Appearance,Urine CLOUDY (Clear); Bilirubin,Urine Negative (Negative); Blood, Urine 3+ (Negative); Color,Urine YELLOW (Yellow); Glucose,Urine (UA) Negative (Negative); Ketones,Urine Negative (Negative); Leukocyte Esterase,Urine 2+ (Negative); Nitrate,Urine POSITIVE (Negative); Protein,Urine 1+ (Negative); Specific Gravity, Urine 1.015 (1.005-1.030)
[2021-11-01 23:37] VITALS: BP 128/77; PULSE 86; RESP 17; TEMP 37.5; O2SAT 97; BMI 51.7
[2021-11-01 23:45] LABS: Bacteria,Urine 4+ /lpf; WBC,Urine TNTC #/hpf (0-3)
--- NOTE | 2021-11-02 00:09 | XR_ITS ---
PROCEDURE INFORMATION: Exam: XR Chest Exam date and time: 11/02/2021 12:23 AM Age: 51 years old Clinical indication: Cough and fever; Additional info: Fever, cough TECHNIQUE: Imaging protocol: Radiologic exam of the chest. Views: 2 views. COMPARISON: CR XR CHEST 2V 01/27/2021 10:45 AM FINDINGS: Lungs: Unremarkable. No consolidation. Pleural spaces: Unremarkable. No pleural effusion. No pneumothorax. Heart/Mediastinum: Unremarkable. No cardiomegaly. Bones/joints: Unremarkable. IMPRESSION: No acute findings.
--- NOTE | 2021-11-02 00:10 | CT_ITS ---
PROCEDURE INFORMATION: Exam: CT Abdomen And Pelvis With Contrast Exam date and time: 11/02/2021 12:35 AM Age: 51 years old Clinical indication: Abdominal pain; Other: Bilateral flank pain and retroperiteneal pain; Additional info: Retroperitoneal pain TECHNIQUE: Imaging protocol: Computed tomography of the abdomen and pelvis with contrast. Radiation optimization: All CT scans at this facility use at least one of these dose optimization techniques: automated exposure control; mA and/or kV adjustment per patient size (includes targeted exams where dose is matched to clinical indication); or iterative reconstruction. Contrast material: ISOVUE; Contrast volume: 75 ml; Contrast route: IV; COMPARISON: CT ABDOMEN PELVIS WO CON 12/27/2019 3:07 PM FINDINGS: Liver: Normal. No mass. Gallbladder and bile ducts: Normal. No calcified stones. No ductal dilation. Pancreas: Normal. No ductal dilation. Spleen: Normal. No splenomegaly. Adrenal glands: Normal. No mass. Kidneys and ureters: 7.3 cm simple cyst in the right kidney. Horseshoe configuration of the kidneys. Stomach and bowel: Unremarkable. No obstruction. No mucosal thickening. Appendix: No evidence of appendicitis. Intraperitoneal space: Unremarkable. No free air. No significant fluid collection. Vasculature: Unremarkable. No abdominal aortic aneurysm. Lymph nodes: Unremarkable. No enlarged lymph nodes. Urinary bladder: Urinary bladder wall thickening which could indicate cystitis. Reproductive: Unremarkable as visualized. Bones/joints: Multilevel degenerative disc disease. Multilevel disc osteophyte complexes resulting in neural foraminal and central canal narrowing. No acute fracture. Soft tissues: Unremarkable. IMPRESSION: Cystitis. Correlate with urinalysis. No additional acute findings in the abdomen pelvis COMMENTS: Consistent with the [employer]'s Incidental Findings Committee white paper (J Am Nazario Radiol 2018): Any incidental renal lesion less than 1 cm or classified as too small to characterize, or any incidental cystic renal lesion characterized as simple-appearing, is likely benign. No follow-up imaging is recommended for these lesions per consensus recommendations based on imaging criteria.
[2021-11-02 00:19] LABS: Basophils # 0.1 K/mm3 (0-0.2); Basophils % 0.8 % (0.1-2.0); Eosinophils % 0.1 % (0.1-12.0); Hematocrit 43.9 % (42.0-52.0); Lymphocytes # 1.6 K/mm3 (0.7-4.5); Lymphocytes % 9.7 % (10-50); MANUAL DIFFERENTIAL MANUAL DIFFERENTIAL (MANUAL DIFF); Mean Corpuscular HGB Conc 31.8 g/dL (31.8-35.4); Mean Corpuscular Hemoglobin 30.2 pg (27.0-31.2); Mean Corpuscular Volume 95.1 fl (80-94); Mean Platelet Volume 8.5 fl (7.4-10.4); Monocytes # 0.9 K/mm3 (0.1-1.0); Monocytes % 5.7 % (1.7-9.3); Neutrophils # 13.5 K/mm3 (1.8-7.8); Neutrophils % 83.7 % (37.0-80.0); Platelet Count 242 K/mm3 (142-424); Red Blood Count 4.62 M/mm3 (4.60-6.20); Red Cell Distribution Width 13.9 % (11.5-17.5); White Blood Count 16.1 K/mm3 (4.8-10.8)
[2021-11-02 00:22] LABS: Alanine Aminotransferase 102 U/L (12-78); Albumin Level 4.5 g/dl (3.5-5.0); Albumin/Globulin Ratio 1.5 (1.1-1.8); Alkaline Phosphatase 80 U/L (38-126); Anion Gap 13.5 mEq/L (5-15); Aspartate Amino Transferase 61 U/L (17-59); Bilirubin,Total 1.4 mg/dl (0.2-1.3); Blood Urea Nitrogen 16 mg/dl (9-20); Calcium 9.3 mg/dl (8.4-10.2); Carbon Dioxide 28 mmol/L (22.0-30.0); Chloride 98 mmol/L (98-107); Creatinine Clearance Estimated 85 mL/min (50-200); Estimated Glomerular Filt Rate 79 ml/min (>60); GFR (African American) 95 ML/MIN (>60); Glucose 95 mg/dl (74-100); Potassium 3.5 mmoL/L (3.5-5.1); Sodium 136 mmol/L (136-145); Total Protein,Serum 7.5 g/dl (6.3-8.2)
[2021-11-02 00:28] LABS: C-Reactive Protein 128.3 mg/L (0-4)
--- NOTE | 2021-11-02 00:28 | PC.NURSE ---
Pt gone to RAD
[2021-11-02 00:34] LABS: Lymphocytes % 13 % (10-50); Monocytes % 2 % (2-9); Neutrophils % 77 % (42-76); Platelet Estimate Normal; RBC Morphology Normal; Total Cells Counted 100
[2021-11-02 00:41] LABS: Procalcitonin 0.406 ng/mL (0.0-2.0)
--- NOTE | 2021-11-02 00:46 | PC.NURSE ---
Pt back from RAD
[2021-11-02 00:48] LABS: Erythrocyte Sedimentation Rate 26 mm/hr (0-20)
--- NOTE | 2021-11-02 00:54 | HMH.EDUROGM ---
ED Disposition Clinical Impression: SIRS (systemic inflammatory response syndrome) UTI (urinary tract infection) Qualifiers: Urinary tract infection type: acute cystitis Hematuria presence: without hematuria Qualified Code(s): N30.00 - Acute cystitis without hematuria Obesity Qualifiers: Obesity type: due to excess calories Obesity classification: adult class 3 (BMI >= 40) Serious obesity comorbidity presence: with serious comorbidity Body mass index: BMI 50.0-59.9 Qualified Code(s): E66.01 - Morbid (severe) obesity due to excess calories; Z68.43 - Body mass index [BMI] 50.0-59.9, adult Disposition: Home, Self-Care Condition on Discharge: Good Instructions: DI for Fever (Symptom) -- Adult, DI for Acute Cystitis Additional Instructions: fluids and use meds and see pcp for follow up and urology - call for urine culture results Prescriptions: levoFLOXacin [Levaquin 500mg tab] 500 mg PO DAILY #7 tab Transmission Status: Pending to [facility]/pharmacy #[id number] Referrals: Brock Edwards MD [Primary Care Provider] - Prabhakar Bang MD [Staff Physician] - - Critical Care Critical Care Time: No Attestation: On 11/01/21, the high probability of a clinically significant, sudden or life threatening deterioration of the following system(s) required my full and direct attention, intervention and personal management. The time I documented below is in addition to time spent performing reported procedures but includes the following listed in this critical care notation. Medical Decision Making - Medical Records Medical records reviewed: Yes: I reviewed the patient's medical records. - Eric Inquiry Pt receiving controlled substance: No Vital Signs: 11/01/21 23:37 11/02/21 01:01 Temperature 99.5 F Temperature Source Oral Pulse Rate 86 Pulse Rate [Right Brachial] 86 Respiratory Rate 17 Blood Pressure 134/70 Blood Pressure [Right Arm] 128/77 Blood Pressure Mean [Right Arm] 94 Blood Pressure Source [Right Arm] Automatic Cuff Blood Pressure Position [Right Arm] Sitting 02 Sat by Pulse Oximetry 97 95 Oxygen Delivery Method Room Air Room Air - Lab Data Lab results reviewed: Yes: I reviewed the patient's lab results. Lab Results 11/01/21 23:22: SARS-CoV-2 (PCR) Not detected, Influenza A Untype (PCR) Not detected, Influenza Type B (PCR) Not detected 11/01/21 23:26: Urine Color Yellow, Urine Appearance Cloudy, Urine pH 6.0, Ur Specific [place] 1.015, Urine Protein 1+, Urine Glucose (UA) Negative, Urine Ketones Negative, Urine Blood 3+, Urine Nitrate Positive, Urine Bilirubin Negative, Urine Urobilinogen 1.0, Ur Leukocyte Esterase 2+ A, Urine RBC 3-5, Urine WBC Tntc, Ur Squamous Epith Cells 3-5, Urine Bacteria 4+ 11/02/21 00:08: WBC 16.1 H, RBC 4.62, Hgb 14.0 L, Hct 43.9, MCV 95.1 H, MCH 30.2, MCHC 31.8, RDW 13.9, Plt Count 242, MPV 8.5, Neut % (Auto) 83.7 H, Lymph % (Auto) 9.7 L, [place] % (Auto) 5.7, Eos % (Auto) 0.1, Baso % (Auto) 0.8, Neut # (Auto) 13.5 H, Lymph # (Auto) 1.6, [place] # (Auto) 0.9, Eos # (Auto) 0.0, Baso # (Auto) 0.1, Total Counted 100, Neutrophils % (Manual) 77 H, Band Neutrophils % 8.0, Lymphocytes % (Manual) 13, Monocytes % (Manual) 2, Platelet Estimate Normal, RBC Morphology Normal, ESR 26 H 11/02/21 00:08: Sodium 136, Potassium 3.5, Chloride 98, Carbon Dioxide 28, Anion Gap 13.5, BUN 16, Creatinine 1.00, Estimated Creat Clear 85, Estimated GFR 79, Est GFR ( Amer) 95, Glucose 95, Calcium 9.3, Total Bilirubin 1.4 H, AST 61 H, ALT 102 H, Alkaline Phosphatase 80, C-Reactive Protein 128.3 H, Total Protein 7.5, Albumin 4.5, Globulin 3.0, Albumin/Globulin Ratio 1.5, Procalcitonin 0.406 11/02/21 01:14: Lactate 0.8 Result diagrams: 11/02/21 00:08 11/02/21 00:08 Orders (Tests/Meds): ED MEDICATIONS Generic Name Dose Route Start Last Admin Trade Name Freq PRN Reason Stop Dose Admin Sodium Chloride 1,000 mls @ 999 mls/hr 11/02/21 00:15 11/02/21 00:16 Sod Chlor 0.9% 1000ml Bag IV 11/02/21 01:15
[2021-11-02 01:01] VITALS: BP 134/70; PULSE 86; O2SAT 95
[2021-11-02 01:43] LABS: Lactic Acid 0.8 mmol/L (0.7-2.1)
[2021-11-02 01:46] VITALS: BP 158/91; PULSE 89; RESP 18; TEMP 37.3; O2SAT 95
== END 2021-11-02 02:01 | disposition home or self-care (01) ==
PROVIDERS: Emergency Provider Emergency Medicine; PCP Family Medicine
DX: N30.90 Cystitis, unspecified without hematuria (principal); E66.01 Morbid (severe) obesity due to excess calories; Z68.43 Body mass index [BMI] 50.0-59.9, adult
CPT/HCPCS: 71046; 74177; 80053; 81001; 83605; 84145; 85007; 85025; 85651; 86140; 87040; 87086; 87088; 87186; 96365; 96366; 96375; 99284; C9803; J0696; Q9967; U0003; U0005

== ENCOUNTER → 2021-11-05 06:46 | Outpatient (CLI) | payer BC, SELFPAY ==
[2021-11-04 18:50] LABS: Basophils % 0.5 % (0.1-2.0); Eosinophils # 0.1 K/mm3 (0.0-0.4); Eosinophils % 0.6 % (0.1-12.0); Hematocrit 38.3 % (42.0-52.0); Hemoglobin 13.7 g/dL (14.1-18.0); Lymphocytes # 1.6 K/mm3 (0.7-4.5); Lymphocytes % 20.8 % (10-50); Mean Corpuscular HGB Conc 35.8 g/dL (31.8-35.4); Mean Corpuscular Hemoglobin 31.5 pg (27.0-31.2); Mean Platelet Volume 7.9 fl (7.4-10.4); Monocytes # 0.6 K/mm3 (0.1-1.0); Monocytes % 7.2 % (1.7-9.3); Neutrophils # 5.6 K/mm3 (1.8-7.8); Platelet Count 321 K/mm3 (142-424); Red Blood Count 4.36 M/mm3 (4.60-6.20); Red Cell Distribution Width 13.3 % (11.5-17.5); White Blood Count 7.9 K/mm3 (4.8-10.8)
[2021-11-04 18:52] LABS: Chloride 105 mmol/L (98-107); Sodium 138 mmol/L (136-145)
[2021-11-04 18:55] LABS: Alanine Aminotransferase 55 U/L (12-78); Albumin Level 4.1 g/dl (3.5-5.0); Albumin/Globulin Ratio 1.6 (1.1-1.8); Alkaline Phosphatase 83 U/L (38-126); Aspartate Amino Transferase 53 U/L (17-59); Bilirubin,Total 0.8 mg/dl (0.2-1.3); Blood Urea Nitrogen 15 mg/dl (9-20); Calcium 9.8 mg/dl (8.4-10.2); Carbon Dioxide 26 mmol/L (22.0-30.0); Estimated Glomerular Filt Rate 102 ml/min (>60); GFR (African American) 123 ML/MIN (>60); Globulin 2.6 g/dL (1.3-3.2); Glucose 104 mg/dl (74-100); Total Protein,Serum 6.7 g/dl (6.3-8.2)
== END ==
PROVIDERS: PCP Family Medicine; Visit Provider Family Medicine
DX: N30.00 Acute cystitis without hematuria (principal); R79.89 Other specified abnormal findings of blood chemistry
CPT/HCPCS: 80053; 85025

== ENCOUNTER 2022-02-22 11:29 | Emergency (ER) | payer BC, SELFPAY ==
[2022-02-22 11:30] VITALS: BP 131/84; PULSE 63; RESP 19; TEMP 36.6; O2SAT 98; BMI 47.0
--- NOTE | 2022-02-22 12:40 | EXP.UTC ---
Discharge Plan Disposition Patient Disposition: Home, Self-Care Condition: Good Prescriptions Prescriptions: New azithromycin [Zithromax Z-Scar] 250 mg tablet See Rx Instructions .ROUTE .COMPLEX 5 Days Qty: 6 0RF Rx Instructions: For 250 mg dose pack: take 500 mg today (day 1), then 250 mg for 4 days (days 2-5) benzonatate 100 mg capsule 100 mg PO TID PRN (Reason: cough) Qty: 30 0RF methylprednisolone [Medrol (Scar)] 4 mg tablets,dose pack See Rx Instructions .Route .COMPLEX 6 Days Qty: 21 0RF Rx Instructions: taper pack; No Action ipratropium-albuterol 0.5 mg-3 mg(2.5 mg base)/3 mL solution for nebulization 3 ml IH QID PRN (Reason: shortness of breath or wheezing) 90 Days Qty: 270 3RF montelukast 10 mg tablet 10 mg PO QPM celecoxib 200 mg capsule 200 mg PO DAILY allopurinol 300 mg tablet 300 mg PO DAILY levalbuterol tartrate [Xopenex HFA] 45 mcg/actuation HFA aerosol inhaler 2 inh IH Q6H PRN (Reason: shortness of breath or wheezing) famotidine 20 mg tablet 20 mg PO DAILY sildenafil 100 mg tablet 100 mg PO DAILY PRN (Reason: sexual activity) Qty: 10 5RF Rx Instructions: administer 30 minutes to 4 hours before activity hydrochlorothiazide 25 mg tablet See Rx Instructions .ROUTE .COMPLEX Qty: 30 5RF Dose Instruction: TAKE 1 TABLET BY MOUTH DAILY Rx Instructions: TAKE 1 TABLET BY MOUTH DAILY losartan 100 mg tablet 100 mg PO DAILY Qty: 90 0RF amlodipine 5 mg tablet 5 mg PO DAILY Qty: 90 1RF lysine 500 MG tablet 1,000 mg PO DAILY multivitamin 1 EACH capsule 1 each PO DAILY fluticasone propion-salmeterol 1 EACH blister with device 1 inh IH BID mepolizumab 100 MG/ML auto-injector 100 mg SQ Q4W Referrals Follow up/Referrals: Brock Edwards MD [Primary Care Provider] - See instructions Activity Restrictions/Add. Instructions Additional Instructions/Restrictions: Start antibiotic today. Be sure to complete entire prescription even if feeling better Monitor temp. Tylenol every 4 hours as needed and / or ibuprofen every 6 hours as needed ( As long as your primary care physician has told you that it ok to take both. For fever/aches/pains ER if no less than 101 despite Tylenol or Motrin Humidifier/vaporizer or hot steamy shower *Tessalon Perles will not cause drowsiness but use at bedtime to help stop cough so that you may get some rest. *Start steroid today. Helps with inflammation therefore, cough and wheezing. Follow directions on the package. Reviewed side effects. Patient reports taking them before. Follow up IMMEDIATELY for new or worsening of symptoms OR no noticeable improvement over the next 48-72 hours. 911 immediately for any life threatening symptoms such as chest pain or difficulty breathing Clinical Impressions Clinical Impression: URI (upper respiratory infection) Instructions Patient Instructions: Acute Bronchitis, DI for Acute Bronchitis Discharge ED Provider: Laura Donaldson [facility] General Stated complaint: deep cough home test covid - Mode of Arrival: Ambulatory Source of Information: Patient Limitations: No Limitations Time Seen by Provider: 02/22/22 12:40 Description of Symptoms (Recalled from Triage Doc. by RN): productive cough, chest hurts when coughs HEENT Symptoms (Recalled from RN notes): Yes Resp Symptoms (Recalled from RN notes): No Skin Symptoms (Recalled from RN notes): No MS Symptoms (Recalled from RN notes): No Functional Status (Recalled from RN notes): n/a History of Present Illness Provider Complaint: Patient states that he has been having some sinus congestion, deep cough and at times he can cough up some mucous States that he took home COVID test and it was negative so he came in to get something for it before it got worse Related Data Home Medications Medication Instructions Recorded C
[2022-02-22 13:05] VITALS: BP 131/86; PULSE 63; RESP 19; TEMP 36.6; O2SAT 98
== END 2022-02-22 13:07 | disposition home or self-care (01) ==
PROVIDERS: Emergency Provider Nurse Practitioner; PCP Family Medicine
DX: J06.9 Acute upper respiratory infection, unspecified (principal)
CPT/HCPCS: 99212; G0463

== ENCOUNTER 2022-04-10 16:52 | Emergency (ER) | payer BC, SELFPAY ==
[2022-04-10 17:17] VITALS: BP 153/101; PULSE 60; RESP 20; TEMP 36.7; O2SAT 99; BMI 51.7
--- NOTE | 2022-04-10 17:17 | HMH.EDGENADL ---
Discharge Plan Disposition Chief Complaint: Back Pain/Injury Prescriptions Prescriptions: New hydrocodone-acetaminophen 5-325 mg tablet 1 tab PO Q6H PRN (Reason: pain) Qty: 8 0RF prednisone 20 mg tablet 20 mg PO BID Qty: 10 0RF No Action ipratropium-albuterol 0.5 mg-3 mg(2.5 mg base)/3 mL solution for nebulization 3 ml IH QID PRN (Reason: shortness of breath or wheezing) 90 Days Qty: 270 3RF montelukast 10 mg tablet 10 mg PO QPM levalbuterol tartrate [Xopenex HFA] 45 mcg/actuation HFA aerosol inhaler 2 inh IH Q6H PRN (Reason: shortness of breath or wheezing) famotidine 20 mg tablet 20 mg PO DAILY sildenafil 100 mg tablet 100 mg PO DAILY PRN (Reason: sexual activity) Qty: 10 5RF Rx Instructions: administer 30 minutes to 4 hours before activity hydrochlorothiazide 25 mg tablet See Rx Instructions .ROUTE .COMPLEX Qty: 30 5RF Dose Instruction: TAKE 1 TABLET BY MOUTH DAILY Rx Instructions: TAKE 1 TABLET BY MOUTH DAILY losartan 100 mg tablet 100 mg PO DAILY Qty: 90 0RF amlodipine 5 mg tablet 5 mg PO DAILY Qty: 90 1RF celecoxib 200 mg capsule 200 mg PO DAILY Qty: 90 1RF allopurinol 300 mg tablet 300 mg PO DAILY Qty: 90 1RF lysine 500 MG tablet 1,000 mg PO DAILY multivitamin 1 EACH capsule 1 each PO DAILY azithromycin [Zithromax Z-Scar] 250 mg tablet See Rx Instructions .ROUTE .COMPLEX 5 Days Qty: 6 0RF Rx Instructions: For 250 mg dose pack: take 500 mg today (day 1), then 250 mg for 4 days (days 2-5) benzonatate 100 mg capsule 100 mg PO TID PRN (Reason: cough) Qty: 30 0RF methylprednisolone [Medrol (Scar)] 4 mg tablets,dose pack See Rx Instructions .Route .COMPLEX 6 Days Qty: 21 0RF Rx Instructions: taper pack; fluticasone propion-salmeterol 1 EACH blister with device 1 inh IH BID mepolizumab 100 MG/ML auto-injector 100 mg SQ Q4W Referrals Follow up/Referrals: Brock Edwards MD [Primary Care Provider] - See instructions Activity Restrictions/Add. Instructions Additional Instructions/Restrictions: Prednisone as prescribed. Douglas as needed for pain. Additional instructions for BACK PAIN: See your physician as soon as possible for further evaluation. Return immediately if back pain becomes intolerable, or if fever, numbness or weakness of your legs, loss of control of your bowels or bladder. Additional instructions for CONTROLLED SUBSTANCES: You have been prescribed a medication that is a controlled substance. Controlled substances include pain medications known as opiates and sedative nerve medications known as benzodiazepines. Tramadol, fioricet, and gabapentin are also controlled substances. Some common opiates include: Codeine (such as Tylenol #3) Hydrocodone (Vicodin, Lortab, Lorcet, Douglas) Oxycodone (Percocet, Percodan, Oxycodone, Oxy IR) Some common benzodiazepines include: Diazepam (Valium) Lorazepam (Ativan) Alprazolam (Xanax) Clonazepam (Klonopin) Oxazepam (Serax) All of these controlled substances are highly addictive and frequently abused. Misuse can and frequently does lead to addiction as well as overdose and . Medication should be stored in a locked cabinet or other secure storage unit. Do not store the medication in a motor vehicle. Short term supplies, 3 days or less, are prescribed because of the highly addictive nature of the medication. Any of the controlled substance medication NOT taken should be disposed of properly and NOT SAVED. The recommended method of disposing of unused medications is: Place the medicines in a sealable plastic bag. If the medicine is a solid, crush it or add water to dissolve it. Add something undesirable (cat litter, coffee grounds, etc.) Dispose of sealed bag in household trash Do not flush or pour unused medicines down a sink or drain. Controlled substances should not be shared, given away or michael
[2022-04-10 17:48] VITALS: PULSE 58; O2SAT 99
--- NOTE | 2022-04-10 17:51 | XR_ITS ---
PROCEDURE INFORMATION: Exam: XR Pelvis Exam date and time: 04/10/2022 5:58 PM Age: 51 years old Clinical indication: Pelvic pain TECHNIQUE: Imaging protocol: Radiologic exam of the pelvis. Views: 1 or 2 view. COMPARISON: CT ABDOMEN PELVIS W CON 11/02/2021 12:35 AM FINDINGS: Bones/joints: No acute fracture or dislocation. Soft tissues: Unremarkable. IMPRESSION: No acute fracture or dislocation.
--- NOTE | 2022-04-10 17:51 | XR_ITS ---
PROCEDURE INFORMATION: Exam: XR Lumbosacral Spine Exam date and time: 04/10/2022 5:59 PM Age: 51 years old Clinical indication: Low back pain TECHNIQUE: Imaging protocol: Radiologic exam of the lumbosacral spine. Views: 2 or 3 views. COMPARISON: CR XR PELVIS 1-2V 04/10/2022 5:58 PM FINDINGS: Bones/joints: Chronic pars defects of L5. Soft tissues: Unremarkable. IMPRESSION: No acute findings.
[2022-04-10 18:00] LABS: Microscopic, Urine URINE MICROSCOPIC (MICROSCOPIC)
[2022-04-10 18:11] LABS: Appearance,Urine CLEAR (Clear); Bilirubin,Urine Negative (Negative); Blood, Urine TRACE-I (Negative); Color,Urine YELLOW (Yellow); Glucose,Urine (UA) Negative (Negative); Ketones,Urine Negative (Negative); Leukocyte Esterase,Urine Negative (Negative); Nitrate,Urine Negative (Negative); PH,Urine 6.5 (5.0-8.5); Protein,Urine Negative (Negative); Urobilinogen,Urine 0.2 EU/dl (0.2)
[2022-04-10 18:32] LABS: Bacteria,Urine Trace /lpf; RBC,Urine Occasional #/hpf (0-3); Squamous Epithelial Cell,Urine Occasional #/hpf (0-5); Uric Acid Crystals,Urine 2+ /lpf
[2022-04-10 18:55] VITALS: BP 157/95; PULSE 62; RESP 18; TEMP 36.7; O2SAT 97
== END 2022-04-10 18:57 | disposition home or self-care (01) ==
PROVIDERS: Emergency Provider Emergency Medicine; PCP Family Medicine
DX: M54.50 Low back pain, unspecified (principal); Z79.899 Other long term (current) drug therapy; Z88.8 Allergy status to other drugs, medicaments and biological substances; I10 Essential (primary) hypertension; N52.9 Male erectile dysfunction, unspecified; G47.33 Obstructive sleep apnea (adult) (pediatric); E66.9 Obesity, unspecified; Z68.43 Body mass index [BMI] 50.0-59.9, adult; Z80.9 Family history of malignant neoplasm, unspecified; Z83.3 Family history of diabetes mellitus; Z82.49 Family history of ischemic heart disease and other diseases of the circulatory system
CPT/HCPCS: 72100; 72170; 81001; 96372; 99284

== ENCOUNTER 2022-05-05 09:00 | Outpatient (RCR) | payer BC, SELFPAY | END 2022-05-05 09:05 | disposition home or self-care (01) | LOC: PT 09:00 | PROVIDERS: PCP Family Medicine; Visit Provider Family Medicine | DX: M54.50 Low back pain, unspecified (principal) | CPT/HCPCS: 97010; 97014; 97110; 97163; G0283 ==

== ENCOUNTER → 2022-05-05 10:08 | Outpatient (CLI) | payer BC, SELFPAY ==
[2022-05-05 10:30] VITALS: PULSE 63; PULSE 67
== END ==
LOC: RT 10:11
PROVIDERS: PCP Family Medicine; Visit Provider Internal Medicine Pulmonary Disease
DX: R06.02 Shortness of breath (principal)
CPT/HCPCS: 94060; 94640

== ENCOUNTER → 2022-06-02 11:00 | Outpatient (CLI) | payer BC, SELFPAY ==
[2022-06-02 19:11] LABS: Anion Gap 8.3 mEq/L (5-15); Blood Urea Nitrogen 11 mg/dl (9-20); Calcium 8.9 mg/dl (8.4-10.2); Carbon Dioxide 28 mmol/L (22.0-30.0); Chloride 106 mmol/L (98-107); Estimated Glomerular Filt Rate 118 ml/min (>60); GFR (African American) 143 ML/MIN (>60); Glucose 95 mg/dl (74-100); Potassium 3.3 mmoL/L (3.5-5.1); Sodium 139 mmol/L (136-145)
[2022-06-02 19:12] LABS: Basophils # 0.1 K/mm3 (0-0.2); Basophils % 1.3 % (0.1-2.0); Eosinophils % 0.5 % (0.1-12.0); Hematocrit 45.8 % (42.0-52.0); Lymphocytes % 31.1 % (10-50); Mean Corpuscular HGB Conc 32.8 g/dL (31.8-35.4); Mean Corpuscular Hemoglobin 30.5 pg (27.0-31.2); Mean Corpuscular Volume 92.9 fl (80-94); Monocytes # 0.5 K/mm3 (0.1-1.0); Monocytes % 7.4 % (1.7-9.3); Neutrophils # 3.9 K/mm3 (1.8-7.8); Neutrophils % 59.6 % (37.0-80.0); Platelet Count 277 K/mm3 (142-424); Red Blood Count 4.93 M/mm3 (4.60-6.20); Red Cell Distribution Width 13.9 % (11.5-17.5); White Blood Count 6.6 K/mm3 (4.8-10.8)
== END ==
LOC: LAB.DROPOF 06-22 11:08
PROVIDERS: PCP Family Medicine; Visit Provider Family Medicine
DX: I10 Essential (primary) hypertension (principal)
CPT/HCPCS: 80048; 85025

== ENCOUNTER → 2022-06-16 18:59 | Outpatient (CLI) | payer BC, SELFPAY ==
[2022-06-16 18:36] LABS: Basophils # 0.1 K/mm3 (0-0.2); Basophils % 0.9 % (0.1-2.0); Eosinophils % 0.5 % (0.1-12.0); Hematocrit 43.3 % (42.0-52.0); Hemoglobin 14.6 g/dL (14.1-18.0); Lymphocytes # 1.8 K/mm3 (0.7-4.5); Lymphocytes % 24.3 % (10-50); Mean Corpuscular HGB Conc 33.8 g/dL (31.8-35.4); Mean Corpuscular Hemoglobin 30.5 pg (27.0-31.2); Mean Corpuscular Volume 90.2 fl (80-94); Mean Platelet Volume 9.7 fl (7.4-10.4); Monocytes # 0.5 K/mm3 (0.1-1.0); Neutrophils # 5.1 K/mm3 (1.8-7.8); Neutrophils % 68.3 % (37.0-80.0); Platelet Count 330 K/mm3 (142-424); Red Cell Distribution Width 13.6 % (11.5-17.5); White Blood Count 7.4 K/mm3 (4.8-10.8)
--- NOTE | 2022-06-16 19:06 | XR_ITS ---
PROCEDURE INFORMATION: Exam: XR Chest Exam date and time: 06/16/2022 7:00 PM Age: 52 years old Clinical indication: Condition or disease; Other: Pneumonia TECHNIQUE: Imaging protocol: Radiologic exam of the chest. Views: 2 views. COMPARISON: CR XR CHEST 2V 11/02/2021 12:23 AM FINDINGS: Lungs: No consolidation. Pleural spaces: No pneumothorax. Heart/Mediastinum: No cardiomegaly. Bones/joints: No acute fracture. IMPRESSION: No acute findings.
== END ==
PROVIDERS: PCP Nurse Practitioner; Visit Provider Nurse Practitioner
DX: J18.9 Pneumonia, unspecified organism (principal)
CPT/HCPCS: 71046; 85025

== ENCOUNTER → 2022-09-09 23:08 | Outpatient (CLI) | payer BC, SELFPAY ==
[2022-09-09 18:10] LABS: Basophils # 0.1 K/mm3 (0-0.2); Basophils % 0.6 % (0.1-2.0); Eosinophils # 0.1 K/mm3 (0.0-0.4); Eosinophils % 0.9 % (0.1-12.0); Hematocrit 46.8 % (42.0-52.0); Hemoglobin 15.4 g/dL (14.1-18.0); Lymphocytes # 1.7 K/mm3 (0.7-4.5); Lymphocytes % 21.4 % (10-50); Mean Corpuscular HGB Conc 32.9 g/dL (31.8-35.4); Mean Corpuscular Hemoglobin 31.3 pg (27.0-31.2); Mean Corpuscular Volume 94.9 fl (80-94); Mean Platelet Volume 9.2 fl (7.4-10.4); Monocytes # 0.7 K/mm3 (0.1-1.0); Monocytes % 9.2 % (1.7-9.3); Neutrophils # 5.4 K/mm3 (1.8-7.8); Neutrophils % 67.8 % (37.0-80.0); Platelet Count 285 K/mm3 (142-424); Red Blood Count 4.94 M/mm3 (4.60-6.20); Red Cell Distribution Width 13.8 % (11.5-17.5); White Blood Count 7.9 K/mm3 (4.8-10.8)
[2022-09-09 18:12] LABS: Creatinine,Urine Random 130 mg/dL (Not Estab.)
[2022-09-09 18:17] LABS: Alanine Aminotransferase 51 U/L (12-78); Albumin Level 4.4 g/dl (3.5-5.0); Albumin/Globulin Ratio 1.8 (1.1-1.8); Alkaline Phosphatase 96 U/L (38-126); Anion Gap 17.5 mEq/L (5-15); Aspartate Amino Transferase 53 U/L (17-59); Bilirubin,Total 0.8 mg/dl (0.2-1.3); Blood Urea Nitrogen 10 mg/dl (9-20); Calcium 8.9 mg/dl (8.4-10.2); Carbon Dioxide 28 mmol/L (22.0-30.0); Chloride 98 mmol/L (98-107); Cholesterol 194 mg/dl (140-200); Estimated Glomerular Filt Rate 141 ml/min (>60); GFR (African American) 171 ML/MIN (>60); Globulin 2.4 g/dL (1.3-3.2); Glucose 84 mg/dl (74-100); HDL Cholesterol 49 mg/dl (40-60); Potassium 3.5 mmoL/L (3.5-5.1); Sodium 140 mmol/L (136-145); Total Protein,Serum 6.8 g/dl (6.3-8.2); Triglycerides 189 mg/dl (30-150); Uric Acid 3.4 mg/dl (3.5-8.5); VLDL Cholesterol 38 mg/dL (0-40)
[2022-09-09 18:29] LABS: Direct LDL Cholesterol 109.74 mg/dL (100-129)
[2022-09-09 18:30] LABS: Hemoglobin A1C 4.9 % (4.0-6.0)
[2022-09-09 18:34] LABS: 25-OH Vitamin D, Total 27.4 ng/mL (30-100)
[2022-09-09 18:49] LABS: Thyroid Stimulating Hormone 2.75 uIU/mL (0.465-4.68)
[2022-09-09 19:07] LABS: Vitamin B12 497 pg/mL (239-931)
== END ==
PROVIDERS: PCP Nurse Practitioner; Visit Provider Nurse Practitioner
DX: I10 Essential (primary) hypertension (principal); E78.5 Hyperlipidemia, unspecified; E79.0 Hyperuricemia without signs of inflammatory arthritis and tophaceous disease; E55.9 Vitamin D deficiency, unspecified; E66.9 Obesity, unspecified; Z68.43 Body mass index [BMI] 50.0-59.9, adult; Z79.84 Long term (current) use of oral hypoglycemic drugs; Z12.5 Encounter for screening for malignant neoplasm of prostate
CPT/HCPCS: 80053; 80061; 82043; 82306; 82570; 82607; 83036; 84443; 84550; 85025; G0103

== ENCOUNTER → 2022-10-21 23:18 | Outpatient (CLI) | payer BC, SELFPAY ==
[2022-10-21 18:49] LABS: Basophils % 0.5 % (0.1-2.0); Eosinophils # 0.1 K/mm3 (0.0-0.4); Eosinophils % 0.6 % (0.1-12.0); Hematocrit 43.9 % (42.0-52.0); Hemoglobin 14.6 g/dL (14.1-18.0); Lymphocytes # 1.8 K/mm3 (0.7-4.5); Lymphocytes % 22.1 % (10-50); Mean Corpuscular HGB Conc 33.2 g/dL (31.8-35.4); Mean Corpuscular Hemoglobin 30.2 pg (27.0-31.2); Mean Platelet Volume 9.4 fl (7.4-10.4); Monocytes # 0.5 K/mm3 (0.1-1.0); Monocytes % 6.6 % (1.7-9.3); Neutrophils # 5.6 K/mm3 (1.8-7.8); Neutrophils % 70.1 % (37.0-80.0); Platelet Count 297 K/mm3 (142-424); Red Blood Count 4.82 M/mm3 (4.60-6.20); Red Cell Distribution Width 13.4 % (11.5-17.5); White Blood Count 7.9 K/mm3 (4.8-10.8)
[2022-10-29 14:13] LABS: Lyme B. burgdorferi PCR Blood Negative (Negative)
== END ==
PROVIDERS: PCP Nurse Practitioner; Visit Provider Nurse Practitioner
DX: S70.362A Insect bite (nonvenomous), left thigh, initial encounter (principal); W57.XXXA Bitten or stung by nonvenomous insect and other nonvenomous arthropods, initial encounter
CPT/HCPCS: 85025; 87476

== ENCOUNTER → 2023-02-03 11:00 | Outpatient (CLI) | payer BC, SELFPAY ==
[2023-02-03 20:10] LABS: Coronavirus 19, PCR Not Detected (NotDetected); Influenza A, PCR Not Detected (NotDetected); Influenza B, PCR Not Detected (NotDetected)
== END ==
PROVIDERS: PCP Nurse Practitioner; Visit Provider Nurse Practitioner
DX: J06.9 Acute upper respiratory infection, unspecified (principal)
CPT/HCPCS: 87636

== ENCOUNTER → 2023-02-10 09:48 | Outpatient (CLI) | payer BC, SELFPAY ==
[2023-02-10 10:30] VITALS: PULSE 61; PULSE 66
== END ==
PROVIDERS: PCP Nurse Practitioner; Visit Provider Internal Medicine Pulmonary Disease
DX: R06.09 Other forms of dyspnea (principal)
CPT/HCPCS: 94060; 94640

== ENCOUNTER 2023-02-15 17:42 | Emergency (ER) | payer BC, SELFPAY ==
[2023-02-15 17:43] VITALS: BP 135/89; PULSE 67; RESP 18; TEMP 36.7; O2SAT 96; BMI 45.9
--- NOTE | 2023-02-15 18:03 | EXP.UTC ---
Discharge Plan Disposition Patient Disposition: Home, Self-Care Condition: Good Prescriptions Prescriptions: No Action ipratropium-albuterol 0.5 mg-3 mg(2.5 mg base)/3 mL solution for nebulization 3 ml IH QID PRN (Reason: shortness of breath or wheezing) 90 Days Qty: 270 3RF fluticasone propionate 50 mcg/actuation spray,suspension 1 spray intranasal DAILY levalbuterol tartrate 45 mcg/actuation HFA aerosol inhaler See Rx Instructions .ROUTE .COMPLEX Dose Instruction: Use 2 puffs every 6 hours As Needed for shortness of breath or wheezing Rx Instructions: Use 2 puffs every 6 hours As Needed for shortness of breath or wheezing metoprolol succinate 50 mg tablet extended release 24 hr 50 mg PO DAILY Qty: 30 2RF Co [id number] E-Fish Oil 25-150-200 mg-mg-unit capsule 1 cap PO DAILY sildenafil 100 mg tablet 100 mg PO DAILY PRN (Reason: sexual activity) Qty: 10 5RF Rx Instructions: administer 30 minutes to 4 hours before activity amlodipine 10 mg tablet 10 mg PO DAILY Qty: 90 3RF levocetirizine 5 mg tablet 5 mg PO DAILY PRN (Reason: allergy symptoms) Qty: 60 1RF Spiriva Respimat 2.5 mcg/actuation mist 2 inh inhalation DAILY Patient Comments: INHALE 2 PUFFS INTO THE LUNGS ONCE DAILY. telmisartan 80 mg tablet 80 mg PO DAILY Qty: 30 2RF Wegovy 2.4 mg/0.75 mL pen injector 2.4 mg SQ WEEKLY Qty: 3 2RF levofloxacin 500 mg tablet 500 mg PO Q24H Qty: 10 0RF cholecalciferol (vitamin D3) 125 mcg (5,000 unit) tablet 125 mcg PO DAILY Qty: 30 5RF hydrochlorothiazide 25 mg tablet 25 mg PO DAILY Qty: 90 3RF montelukast 10 mg tablet See Rx Instructions .ROUTE .COMPLEX Qty: 90 1RF Dose Instruction: TAKE 1 TABLET BY MOUTH EVERY EVENING Rx Instructions: TAKE 1 TABLET BY MOUTH EVERY EVENING celecoxib 200 mg capsule See Rx Instructions .ROUTE .COMPLEX Qty: 90 1RF Dose Instruction: TAKE 1 CAPSULE BY MOUTH DAILY FOR PAIN Rx Instructions: TAKE 1 CAPSULE BY MOUTH DAILY FOR PAIN allopurinol 300 mg tablet See Rx Instructions .ROUTE .COMPLEX Qty: 90 1RF Dose Instruction: Take 1 Tablet by mouth once daily for arthritis. Rx Instructions: Take 1 Tablet by mouth once daily for arthritis. fluticasone propion-salmeterol [Advair Diskus] 500-50 mcg/dose blister with device 1 inh inhalation BID Qty: 180 3RF Spiriva Respimat 2.5 mcg/actuation mist 2 inh inhalation DAILY 90 Days Qty: 4 3RF lysine 500 MG tablet 1,000 mg PO DAILY multivitamin 1 EACH capsule 1 each PO DAILY mepolizumab 100 MG/ML auto-injector 100 mg SQ Q4W Referrals Follow up/Referrals: Binta Roche APRN [Primary Care Provider] - See instructions Activity Restrictions/Add. Instructions Additional Instructions/Restrictions: Drink plenty of fluids. Take tylenol or ibuprofen for pain or fever. Take the medications as directed. Follow up with your regular doctor. GO TO THE ER FOR ANY WORSENING SYMPTOMS Don't start the oral steroids until tomorrow, since you had the shot here today. The cough medication (promethazine dm) will make you drowsy, so don't drive or operate heavy machinery after taking it. Clinical Impressions Clinical Impression: Acute bronchitis Stand Alone Forms Stand Alone Forms: Work/School Release Instructions Patient Instructions: Acute Bronchitis, DI for Acute Bronchitis Discharge ED Provider: Morro Goodwin [facility] General Stated complaint: trouble breathing , cough Mode of Arrival: Ambulatory Source of Information: Patient Limitations: No Limitations Time Seen by Provider: 02/15/23 18:01 Description of Symptoms (Recalled from Triage Doc. by RN): chest congestion, thinks it may be bronchitis HEENT Symptoms (Recalled from RN notes): Yes Resp Symptoms (Recalled from RN notes): No Skin Symptoms (Recalled from RN notes): No MS Symptoms (Recalled from
--- NOTE | 2023-02-15 18:14 | XR_ITS ---
PROCEDURE INFORMATION: Exam: XR Chest Exam date and time: 02/15/2023 6:16 PM Age: 52 years old Clinical indication: Cough; Additional info: Cough, congestion TECHNIQUE: Imaging protocol: Radiologic exam of the chest. Views: 2 views. COMPARISON: CR XR CHEST 2V 06/16/2022 7:00 PM FINDINGS: Lungs: Unremarkable. No consolidation. Pleural spaces: Unremarkable. No pleural effusion. No pneumothorax. Heart/Mediastinum: Unremarkable. No cardiomegaly. Bones/joints: Unremarkable. IMPRESSION: No acute findings.
--- NOTE | 2023-02-15 18:17 | PC.NURSE ---
Called RAD for xray
[2023-02-15 19:15] VITALS: BP 135/89; PULSE 67; RESP 18; TEMP 36.7; O2SAT 96
== END 2023-02-15 19:15 | disposition home or self-care (01) ==
PROVIDERS: Emergency Provider Nurse Practitioner Family; PCP Nurse Practitioner
DX: J20.9 Acute bronchitis, unspecified; J45.909 Unspecified asthma, uncomplicated; I10 Essential (primary) hypertension; E78.5 Hyperlipidemia, unspecified; G47.33 Obstructive sleep apnea (adult) (pediatric); E66.9 Obesity, unspecified
CPT/HCPCS: 71046; 96372; 99212; 99214; G0463; J0696

== ENCOUNTER → 2023-03-23 15:00 | Outpatient (CLI) | payer BC, SELFPAY ==
--- NOTE | 2023-03-23 15:07 | CT_ITS ---
FINAL REPORT TECHNIQUE: Thin section axial CT images of the facial bones and sinuses were obtained without contrast. Coronal and sagittal reformatted images were also obtained. This study was performed with techniques to keep radiation doses as low as reasonably achievable, (ALARA). Individualized dose reduction techniques using automated exposure control or adjustment of mA and/or kV according to the patient's size were employed. CLINICAL HISTORY: ALLERGIC RHININTIS,CHRONIC SINUSITIS COMPARISON: None FINDINGS: There is mild bilateral mucosal thickening present in the maxillary sinuses. There is a 26 mm retention cyst or polyp in the superior left maxillary sinus which partially obstructs the ostia of the left maxillary sinus. There is mild mucosal thickening in several ethmoid air cells. No fluid levels are identified. There is mild nasal septal deviation to the left with a septal spur directed to the left. The frontal sinuses are hypoplastic.. A shannan bullosa is noted in the right middle turbinate. No fracture or acute bony abnormality is identified. IMPRESSION: 26 mm polyp versus retention cyst in the left maxillary sinus. This produces partial obstruction of the ostium of the left maxillary sinus. Mild septal deviation with a septal spur projecting into the left nasal cavity. Hypoplasia of the frontal sinuses bilaterally. Reviewed, Interpreted and Dictated by Franklin Denis III, MD Transcribed by Vanessa Steele Authenticated and [facility]
== END ==
PROVIDERS: PCP Nurse Practitioner; Visit Provider Nurse Practitioner
DX: J32.9 Chronic sinusitis, unspecified (principal); J30.1 Allergic rhinitis due to pollen; J30.89 Other allergic rhinitis; J30.81 Allergic rhinitis due to animal (cat) (dog) hair and dander; J40 Bronchitis, not specified as acute or chronic; H10.13 Acute atopic conjunctivitis, bilateral
CPT/HCPCS: 70486

== ENCOUNTER 2023-05-18 10:11 | Outpatient (CLI) | payer BC, SELFPAY ==
--- NOTE | 2023-05-18 10:21 | ECG_ITS ---
APPROVED REPORT Exam: Resting ECG HR:64 bpm ECG Measurements Heart Rate 64 AXES DC 180 P 59 QRSd 102 QRS 64 QT 424 T 31 QTc 433 Conclusion SINUS RHYTHM POSSIBLE INFERIOR MYOCARDIAL INFARCTION , PROBABLY OLD [30 ms Q WAVE IN II/aVF] BORDERLINE ECG UNCONFIRMED REPORT Electronically signed by : Benny Calhoun MD 05/19/2023 21:27:11
[2023-05-18 10:40] LABS: Basophils % 0.7 % (0.1-2.0); Eosinophils % 0.6 % (0.1-12.0); Hematocrit 45.2 % (42.0-52.0); Hemoglobin 15.6 g/dL (14.1-18.0); Lymphocytes # 2.1 K/mm3 (0.7-4.5); Lymphocytes % 33.8 % (10-50); Mean Corpuscular HGB Conc 34.4 g/dL (31.8-35.4); Mean Corpuscular Hemoglobin 32.7 pg (27.0-31.2); Mean Corpuscular Volume 95.1 fl (80-94); Mean Platelet Volume 8.2 fl (7.4-10.4); Monocytes # 0.5 K/mm3 (0.1-1.0); Monocytes % 7.3 % (1.7-9.3); Neutrophils # 3.6 K/mm3 (1.8-7.8); Neutrophils % 57.7 % (37.0-80.0); Platelet Count 264 K/mm3 (142-424); Red Blood Count 4.75 M/mm3 (4.60-6.20); Red Cell Distribution Width 13.7 % (11.5-17.5); White Blood Count 6.2 K/mm3 (4.8-10.8)
[2023-05-18 12:07] LABS: Chloride 105 mmol/L (98-107); Potassium 3.9 mmoL/L (3.5-5.1); Sodium 140 mmol/L (136-145)
[2023-05-18 12:09] LABS: Blood Urea Nitrogen 13 mg/dl (9-20); Estimated Glomerular Filt Rate 101 ml/min (>60); GFR (African American) 122 ML/MIN (>60)
[2023-05-18 12:10] LABS: Alanine Aminotransferase 45 U/L (12-78); Albumin Level 4.1 g/dl (3.5-5.0); Albumin/Globulin Ratio 1.6 (1.1-1.8); Alkaline Phosphatase 81 U/L (38-126); Anion Gap 10.9 mEq/L (5-15); Aspartate Amino Transferase 47 U/L (17-59); Bilirubin,Total 0.6 mg/dl (0.2-1.3); Carbon Dioxide 28 mmol/L (22.0-30.0); Globulin 2.5 g/dL (1.3-3.2); Glucose 139 mg/dl (74-100); Total Protein,Serum 6.6 g/dl (6.3-8.2)
== END 2023-05-18 23:59 ==
LOC: LAB 10:11
PROVIDERS: PCP Nurse Practitioner; Visit Provider Otolaryngology
DX: J34.2 Deviated nasal septum (principal); J34.3 Hypertrophy of nasal turbinates; J32.9 Chronic sinusitis, unspecified
CPT/HCPCS: 36415; 80053; 85025; 93005

== ENCOUNTER 2023-05-25 08:27 | Day surgery (SDC) | payer BC, SELFPAY ==
[2023-05-23 12:44] VITALS: BMI 50.1
[2023-05-25] VITALS (10 sets, daily range): BP systolic 130–156; BP diastolic 54–99; PULSE 54–74; RESP 12–18; TEMP 36.1–43; O2SAT 92–99
[2023-05-25] MEDS: LACTATED RINGERS 1000ML 1,000 ML 100 ML IV (09:19)
[2023-05-25] MEDS: CEFAZOLIN SODIUM 2 GM in 0.9 % SODIUM CHLORIDE 100 ML IV (10:15)
[2023-05-25] MEDS: OXYMETAZOLINE NASAL SPRAY 0.05% 15ML 15 ML NS (10:15)
[2023-05-25] MEDS: LIDOCAINE 1% W/EPI 1:100,000 20ML VIAL 20 ML (10:20)
[2023-05-25] MEDS: 0.9 % SODIUM CHLORIDE 1000ML 1,000 ML 100 ML IV (10:31)
--- NOTE | 2023-05-25 10:37 | EXP.ANES.CKL ---
[facility] Disclaimer: The information contained in this section may have been updated after the patient was seen, as this information can be updated by other users. Medical History (Updated 05/25/23 @ 09:10 by Tiarra Daily RN) Abnormal electrocardiography Allergic rhinitis, unspecified Asthma Chronic cough COVID-19 long hauler manifesting chronic fatigue Deviated septum Dyspnea Dyspnea on exertion Edema Family history of asthma HTN (hypertension) Hyperuricemia Male erectile dysfunction, unspecified Nasal turbinate hypertrophy Obesity Oral candidiasis RADHA (obstructive sleep apnea) Pneumonia due to COVID-19 virus Severe persistent asthma Sinusitis Sleep apnea Surgical History (Updated 05/25/23 @ 09:10 by Tiarra Daily RN) History of carpal tunnel surgery History of tonsillectomy Family History Other Cancer Diabetes Heart attack Hypertension Social History (Updated 05/25/23 @ 09:10 by Tiarra Daily RN) Smoking Status: Former smoker tobacco type: cigarettes second hand exposure: No alcohol intake: current substance use type: denies use current occupational status: employed Travel in the last 8 weeks: None household members: none housing: house current occupation: [employer] Instructor caffeine: Yes [facility] Anesthesia Checklist Patient Identification Patient Identification: Arm Band Structural Data Admitted From: Home Planned Operative Procedure/s: Nasal Septoplasty with FESS Consent for Planned Operative Procedure(s) Verified: Yes Verified Documents: Surgical Consent and History and Physical NPO Status Verified Time NPO: 00:00 Additional verifications Anesthesia Reactions: No Hx Blood Transfusions: No Blood Transfusion Reaction: No Airway Assessment Mallampati Score:: Class III C-Spine Mobility Assessed: Yes TMJ Mobility Assessed: Yes Dentition: Good Dentition Anesthesia Plan Anesthesia Risk discussed: Yes Anesthesia Plan: Verified ASA Class: III Anesthesia Type: General
--- NOTE | 2023-05-25 12:13 | EXP.OP.NOTE ---
Date of procedure: 05/25/23 Pre-op Diagnosis:: Chronic sinusitis, deviated septum, turbinate hypertrophy, right middle turbinate shannan bullosa Post-op Diagnosis:: Chronic sinusitis, deviated septum, turbinate hypertrophy, right middle turbinate shannan bullosa Procedure performed:: Revision septoplasty, submucous resection right inferior turbinate, resection of right middle turbinate shannan bullosa, functional endoscopic sinus surgery with nasal endoscopy and bilateral partial ethmoidectomy, nasal endoscopy and bilateral maxillary antrostomies and removal of antral mucosal disease Surgeon:: Harman Alvarado MD BACK END ARCHITECT:: [facility] Anesthesia: GETA Estimated blood loss (mL): 100 Operative findings:: Severely deviated septum anteriorly to the right and posteriorly to the left, chronic ethmoid and maxillary sinusitis bilaterally with [facility] obstruction, right middle turbinate shannan bullosa, right inferior turbinate hypertrophy Operative note:: The patient was brought to the operating room and after adequate general anesthesia the nose was prepped and draped in the usual sterile fashion and 1% lidocaine with epinephrine used to locally infiltrate the septum, right inferior turbinate, and middle meatuses bilaterally. A right hemitransfixion incision was made and dissection performed to the caudal end of the cartilaginous septum. Mucoperichondrial flaps were elevated off the cartilaginous septum bilaterally and the remaining bony septum. Dissection was difficult because of previous surgery and scarring. The cartilaginous septum was then straightened and brought back over the midline maxillary crest and then a large bony and cartilaginous spur on the left side was resected then the mucosal flaps were returned to anatomic position and held in place with a 4-0 plain gut horizontal mattress suture and hemitransfixion incision closed with 5-0 chromic. Using a 0 degree sinus endoscope, the right millimeters was visualized and the lateral wall of the middle turbinate shannan bullosa was resected with a microdebrider and then uncinectomy performed with a pediatric backbiter and microdebrider clearing with the nasofrontal tract and infundibulum. The natural ostium to the maxillary sinus was then enlarged and cleared of obstructing polyp disease to the maxillary sinus well aerated. Mucosal inflammatory disease in the anterior ethmoid was cleared with a microdebrider while sparing normal mucosa posteriorly. Nova pack was placed in the right middle meatus and attention drawn the left side. In a similar fashion the middle turbinate was medialized, uncinectomy performed and nasofrontal tract cleared. The natural ostium to the maxillary sinus was then enlarged and cleared of obstructing polyp disease and then a large infected cyst within the left maxillary sinus was resected. Anterior ethmoidectomy was again performed clearing disease polypoid mucosa in the anterior ethmoid while sparing all mucosa posteriorly nova pack was placed in the left middle meatus and attention drawn to the right inferior turbinate. Submucosal resection of the redundant soft tissue of the right inferior turbinate was performed with a microdebrider and turbinate blade through an anterior stab incision. Aly splints were then placed on the septum and secured to the columella using 3-0 nylon and the procedure concluded. All counts correct and blood loss was 100 mL and patient was sent recovery in stable condition. Condition: stable Disposition: PACU Complications:: No complications
--- NOTE | 2023-05-25 12:20 | P.PNANES_ITS ---
[facility] Anesthesia Record Part I Anesthesia Record I Intake, IV Amount: 1,400 Hydration: Adequate Estimated blood loss (mL): 20 Urine output (mL): 0 Blood Products used (#): none Blood Pressure: 149/94 SaO2: 96 Pulse Rate: 68 Airway Patency: Patent Respiratory Rate: 16 Temperature: 97 F Patient is:: Drowsy and Stable Stable to PACU at:: 12:15
[2023-05-25] MEDS: ONDANSETRON 4MG/2ML VIAL 4 MG IV (12:26)
[2023-05-25] MEDS: KETOROLAC 30MG/ML VIAL 30 MG IV (12:26)
--- NOTE | 2023-05-26 07:15 | P.PNANES_ITS ---
[facility] Anesthesia Record Part II Anesthesia Record Part II Discharge Time: 12:45 Destination: Surgical Day Care (OP Surgery) PACU nurse assessment reviewed?: Yes Patient Condition:: Good Anesthesia Complications:: None Swallowing reflex intact?: Yes Airway Patency: Patent Cyanosis?: No Blood Pressure: 144/88 SaO2: 96 Respiratory Rate: 16 Pulse Rate: 63 Temperature: 97 F Mental Status: Alert & Oriented Pain level:: 3 Nausea and/or vomitting:: None Intake, IV Amount: 0 Hydration: Adequate
[2023-05-26 07:16] VITALS: BP 144/88; PULSE 63; RESP 16; TEMP 36.1; O2SAT 96
== END 2023-05-25 13:15 | disposition home or self-care (01) ==
PROVIDERS: PCP Nurse Practitioner; Visit Provider Otolaryngology
PROC: (CPT 30520; principal; 2023-05-25 09:15)
DX: J34.2 Deviated nasal septum (principal); J34.3 Hypertrophy of nasal turbinates; J34.9 Unspecified disorder of nose and nasal sinuses; J32.0 Chronic maxillary sinusitis
CPT/HCPCS: 31267; 30520; 31240; 31254; 96374; J2405

== ENCOUNTER 2023-07-12 13:55 | Outpatient (POV) | payer BC, SELFPAY | END 2023-07-12 23:59 | disposition home or self-care (01) | LOC: SC 13:55 | PROVIDERS: PCP Nurse Practitioner; Visit Provider Dermatology | DX: Z00.00 Encounter for general adult medical examination without abnormal findings (principal) ==

== ENCOUNTER 2023-07-20 11:36 | Outpatient (CLI) | payer BC, SELFPAY ==
--- NOTE | 2023-07-20 11:46 | XR_ITS ---
FINAL REPORT CLINICAL HISTORY: cough, asthma exacerbation COMPARISON: 02/15/2023 FINDINGS: TWO-VIEW CHEST The heart size is normal. The mediastinum is normal. There are mild left base opacities, favor atelectasis over pneumonia. There is no pneumothorax. IMPRESSION: Left base atelectasis over pneumonia. Reviewed, Interpreted and Dictated by Franklin Denis III, MD Transcribed by Tejal Kenyon Authenticated and [facility]
== END 2023-07-20 23:59 ==
LOC: LAB 11:37
PROVIDERS: PCP Nurse Practitioner; Visit Provider Nurse Practitioner
DX: R05.3 Chronic cough (principal); J45.901 Unspecified asthma with (acute) exacerbation; B96.89 Other specified bacterial agents as the cause of diseases classified elsewhere
CPT/HCPCS: 71046; 87070; 87205

== ENCOUNTER 2023-07-28 18:50 | Outpatient (CLI) | payer BC, SELFPAY ==
[2023-07-28 18:03] LABS: Basophils # 0.1 K/mm3 (0-0.2); Basophils % 0.9 % (0.1-2.0); Eosinophils # 0.1 K/mm3 (0.0-0.4); Eosinophils % 0.4 % (0.1-12.0); Hematocrit 47.6 % (42.0-52.0); Hemoglobin 15.7 g/dL (14.1-18.0); Lymphocytes # 1.3 K/mm3 (0.7-4.5); Lymphocytes % 11.5 % (10-50); Mean Corpuscular Hemoglobin 32.9 pg (27.0-31.2); Mean Corpuscular Volume 99.5 fl (80-94); Mean Platelet Volume 9.3 fl (7.4-10.4); Monocytes # 0.5 K/mm3 (0.1-1.0); Monocytes % 4.7 % (1.7-9.3); Neutrophils # 9.1 K/mm3 (1.8-7.8); Neutrophils % 82.5 % (37.0-80.0); Platelet Count 226 K/mm3 (142-424); Red Blood Count 4.78 M/mm3 (4.60-6.20)
[2023-07-28 18:11] LABS: Alanine Aminotransferase 50 U/L (12-78); Albumin/Globulin Ratio 1.7 (1.1-1.8); Alkaline Phosphatase 83 U/L (38-126); Anion Gap 6.9 mEq/L (5-15); Aspartate Amino Transferase 37 U/L (17-59); Blood Urea Nitrogen 18 mg/dl (9-20); Calcium 9.5 mg/dl (8.4-10.2); Carbon Dioxide 27 mmol/L (22.0-30.0); Chloride 107 mmol/L (98-107); Estimated Glomerular Filt Rate 118 ml/min (>60); GFR (African American) 143 ML/MIN (>60); Globulin 2.3 g/dL (1.3-3.2); Glucose 104 mg/dl (74-100); Potassium 3.9 mmoL/L (3.5-5.1); Sodium 137 mmol/L (136-145); Total Protein,Serum 6.3 g/dl (6.3-8.2)
== END 2023-07-28 23:59 ==
LOC: LAB.DROPOF 18:51
PROVIDERS: PCP Nurse Practitioner; Visit Provider Nurse Practitioner
DX: J45.901 Unspecified asthma with (acute) exacerbation (principal); R05.1 Acute cough; Z87.891 Personal history of nicotine dependence
CPT/HCPCS: 80053; 85025

== ENCOUNTER 2023-08-22 08:54 | Outpatient (CLI) | payer BC, SELFPAY ==
--- NOTE | 2023-08-22 08:54 | CT_ITS ---
FINAL REPORT TECHNIQUE: Routine axial images were obtained from the lung apices to below the diaphragm following IV contrast administration. Individualized dose reduction techniques using automated exposure control or adjustment of the mA and/or kV according to the patient size were employed. CLINICAL HISTORY: cough, pneumonia COMPARISON: None FINDINGS: No acute lung disease is present. There is a calcified granuloma present in the right lung base. No pleural or pericardial effusion is seen. No adenopathy or mass lesion is present. There is moderate fatty infiltration of the liver present. IMPRESSION: Right lung base calcified granuloma. Moderate fatty infiltration of the liver. Reviewed, Interpreted and Dictated by Chirag Mcpherson MD Transcribed by Vanessa Steele Authenticated and [facility]
[2023-08-22] MEDS: SODIUM CHLORIDE 0.9% 10ML SYR (RAD ONLY) 10 ML IV (09:17)
[2023-08-22] MEDS: IOPAMIDOL-370 (76%);100ML BOTTLE 75 ML IV (09:18)
== END 2023-08-22 23:59 ==
LOC: RAD 08:54
PROVIDERS: PCP Nurse Practitioner; Visit Provider Nurse Practitioner
DX: R05.9 Cough, unspecified (principal); J18.9 Pneumonia, unspecified organism
CPT/HCPCS: 71260; Q9967

== ENCOUNTER 2023-09-21 11:07 | Outpatient (CLI) | payer BC, SELFPAY | END 2023-09-21 23:59 | disposition home or self-care (01) | LOC: RT 11:08 | PROVIDERS: PCP Nurse Practitioner; Visit Provider Physician Assistant | DX: R60.9 Edema, unspecified (principal); I20.89 Other forms of angina pectoris; R93.1 Abnormal findings on diagnostic imaging of heart and coronary circulation; R00.2 Palpitations; R42 Dizziness and giddiness; R06.00 Dyspnea, unspecified; R94.31 Abnormal electrocardiogram [ECG] [EKG]; I10 Essential (primary) hypertension; E66.01 Morbid (severe) obesity due to excess calories; I48.91 Unspecified atrial fibrillation; Z79.01 Long term (current) use of anticoagulants; Z51.81 Encounter for therapeutic drug level monitoring; Z68.43 Body mass index [BMI] 50.0-59.9, adult | CPT/HCPCS: 93270 ==

== ENCOUNTER 2023-10-12 11:26 | Outpatient (CLI) | payer BC, SELFPAY ==
--- NOTE | 2023-10-12 11:31 | XR_ITS ---
FINAL REPORT CLINICAL HISTORY: cough -- best images possible COMPARISON: 02/15/2023 FINDINGS: Two views of the chest were obtained. The heart size and pulmonary vascularity are within normal limits. The mediastinum is normal. No acute pulmonary abnormality is identified. There is no pneumothorax. The bony thorax is intact. IMPRESSION: No active cardiopulmonary disease. Reviewed, Interpreted and Dictated by Franklin Denis III, MD Transcribed by Tejal Kenyon Authenticated and [facility]
[2023-10-12 12:17] LABS: Basophils # 0.1 K/mm3 (0-0.2); Basophils % 1.2 % (0.1-2.0); Eosinophils # 0.1 K/mm3 (0.0-0.4); Eosinophils % 1.4 % (0.1-12.0); Hematocrit 45.5 % (42.0-52.0); Hemoglobin 15.1 g/dL (14.1-18.0); Lymphocytes # 1.6 K/mm3 (0.7-4.5); Lymphocytes % 22.9 % (10-50); Mean Corpuscular HGB Conc 33.2 g/dL (31.8-35.4); Mean Corpuscular Hemoglobin 31.6 pg (27.0-31.2); Mean Corpuscular Volume 95.1 fl (80-94); Monocytes # 0.6 K/mm3 (0.1-1.0); Monocytes % 8.6 % (1.7-9.3); Neutrophils # 4.5 K/mm3 (1.8-7.8); Neutrophils % 65.8 % (37.0-80.0); Platelet Count 222 K/mm3 (142-424); Red Blood Count 4.78 M/mm3 (4.60-6.20); Red Cell Distribution Width 14.3 % (11.5-17.5); White Blood Count 6.9 K/mm3 (4.8-10.8)
== END 2023-10-12 23:59 | disposition home or self-care (01) ==
LOC: LAB 11:27
PROVIDERS: PCP Nurse Practitioner; Visit Provider Nurse Practitioner
DX: R05.9 Cough, unspecified (principal); J45.50 Severe persistent asthma, uncomplicated; J30.9 Allergic rhinitis, unspecified; Z87.891 Personal history of nicotine dependence
CPT/HCPCS: 36415; 71046; 85025

== ENCOUNTER 2023-10-19 08:02 | Day surgery (SDC) | payer BC, SELFPAY ==
[2023-10-19] VITALS (12 sets, daily range): BP systolic 116–148; BP diastolic 66–86; PULSE 51–63; RESP 14–18; TEMP 36.6; O2SAT 95–98; BMI 50.3
--- NOTE | 2023-10-19 07:09 | IR_ITS ---
APPROVED REPORT Patient Location: [facility] Worker: STEPHANIA Olivarez RT (R) PROCEDURES Left heart catheterization Left ventriculogram Selective coronary angiogram INDICATION Abnormal Myoview, Angina pectoris Informed consent was obtained prior to the procedure. COMPLICATIONS NONE Estimated Blood Loss: LESS THAN 10 ML TECHNIQUE One percent lidocaine used to anesthetize the right anterior aspect of the wrist. The right radial artery was accessed via the Seldinger technique. A 6 Gabonese sheath was placed in the right radial artery. 2.5 mg of Verapamil, 800 mcg of nitroglycerin, 1mg Lidocaine and 5000 U Heparin were given through the arterial sheath. The papa catheter was also used to perform left heart catheterization, left ventriculogram and selective coronary angiogram. At the end of the procedure the sheath was removed good hemostasis was achieved using Traclet band, patient was transferred to the postop holding area in stable condition. ANGIOGRAPHIC RESULTS The left main artery Normal The left anterior descending artery Has mild proximal mid vessel 10% luminal irregularities accompanied by JAMES II flow The circumflex artery Dominant normal The right coronary artery Nondominant normal The SIMMONS ventriculogram reveals Normal 65% The left ventricular end-diastolic pressure 20 to 25 mmHg IMPRESSION Mild luminal irregularities within the LAD accompanied by JAMES II flow consistent with endothelial dysfunction Elevated LVEDP in the setting normal ejection fraction consistent with diastolic dysfunction PLAN 1. Risk factor modification 2. Treatment of diastolic dysfunction 3. Recommend sleep study 4. Treatment of endothelial dysfunction Electronically signed by : Jacob Crawley MD 10/19/2023 10:10:07
[2023-10-19 08:57] LABS: Basophils # 0.1 K/mm3 (0-0.2); Basophils % 1.2 % (0.1-2.0); Eosinophils # 0.1 K/mm3 (0.0-0.4); Eosinophils % 1.9 % (0.1-12.0); Hematocrit 46.6 % (42.0-52.0); Hemoglobin 15.6 g/dL (14.1-18.0); Lymphocytes # 1.7 K/mm3 (0.7-4.5); Lymphocytes % 25.6 % (10-50); Mean Corpuscular HGB Conc 33.6 g/dL (31.8-35.4); Mean Corpuscular Hemoglobin 32.2 pg (27.0-31.2); Mean Platelet Volume 8.1 fl (7.4-10.4); Monocytes # 0.6 K/mm3 (0.1-1.0); Monocytes % 9.3 % (1.7-9.3); Neutrophils # 4.1 K/mm3 (1.8-7.8); Platelet Count 228 K/mm3 (142-424); Red Blood Count 4.85 M/mm3 (4.60-6.20); Red Cell Distribution Width 14.1 % (11.5-17.5); White Blood Count 6.7 K/mm3 (4.8-10.8)
[2023-10-19 08:58] LABS: Chloride 106 mmol/L (98-107); Potassium 3.5 mmoL/L (3.5-5.1); Sodium 142 mmol/L (136-145)
[2023-10-19 09:01] LABS: Anion Gap 9.5 mEq/L (5-15); Blood Urea Nitrogen 12 mg/dl (9-20); Calcium 9.7 mg/dl (8.4-10.2); Carbon Dioxide 30 mmol/L (22.0-30.0); Creatinine Clearance Estimated 103 mL/min (50-200); Estimated Glomerular Filt Rate 101 ml/min (>60); GFR (African American) 122 ML/MIN (>60); Glucose 102 mg/dl (74-100)
[2023-10-19] MEDS: 0.9 % SODIUM CHLORIDE 500 ML 25 ML IV (09:39)
[2023-10-19] MEDS: HEPARIN 1,000 UNITS/ML 10ML VIAL (CATH LAB) 10000 UNIT IV (09:39)
[2023-10-19] MEDS: HEPARIN 1,000 UNITS/500ML NS (CATH LAB) 3000 UNIT IV (09:39)
[2023-10-19] MEDS: NITROGLYCERIN 800MCG/8ML SYR (CATH LAB) 800 MCG IA (09:39)
[2023-10-19] MEDS: diphenhydrAMINE 50MG/ML VIAL 50 MG IV (09:40)
[2023-10-19] MEDS: LIDOCAINE 1% 10ML MDV 20 ML IJ (09:40)
[2023-10-19] MEDS: VERAPAMIL 2.5MG/ML 2ML VIAL 2.5 MG IV (09:40)
[2023-10-19] MEDS: FENTANYL 100MCG/2ML VIAL 50 MCG IV (10:05)
[2023-10-19] MEDS: MIDAZOLAM HCL 1MG/1ML 5ML VIAL 1 MG IV (10:06)
[2023-10-19] MEDS: IOPAMIDOL-370 (76%);100ML BOTTLE 60 ML IV (10:38)
== END 2023-10-19 12:55 | disposition home or self-care (01) ==
PROVIDERS: PCP Nurse Practitioner; Visit Provider Internal Medicine
DX: I20.89 Other forms of angina pectoris (principal); R93.1 Abnormal findings on diagnostic imaging of heart and coronary circulation; R00.2 Palpitations; R06.00 Dyspnea, unspecified; R94.31 Abnormal electrocardiogram [ECG] [EKG]; I10 Essential (primary) hypertension; E66.01 Morbid (severe) obesity due to excess calories; Z68.43 Body mass index [BMI] 50.0-59.9, adult; Z79.899 Other long term (current) drug therapy; Z86.16 Personal history of COVID-19
CPT/HCPCS: 80048; 85025; 93458; 99152; C1725; C1760; C1769; J1644; J2250; J3010; Q9967

== ENCOUNTER 2023-11-14 10:20 | Outpatient (CLI) | payer BC, SELFPAY ==
[2023-11-14 19:20] LABS: Chloride 109 mmol/L (98-107)
[2023-11-14 19:21] LABS: Sodium 142 mmol/L (136-145)
[2023-11-14 19:23] LABS: Blood Urea Nitrogen 14 mg/dl (9-20); Estimated Glomerular Filt Rate 101 ml/min (>60); GFR (African American) 122 ML/MIN (>60)
[2023-11-14 19:24] LABS: Alanine Aminotransferase 47 U/L (12-78); Albumin Level 4.3 g/dl (3.5-5.0); Albumin/Globulin Ratio 1.7 (1.1-1.8); Alkaline Phosphatase 102 U/L (38-126); Aspartate Amino Transferase 45 U/L (17-59); Bilirubin,Total 0.6 mg/dl (0.2-1.3); Calcium 9.3 mg/dl (8.4-10.2); Carbon Dioxide 28 mmol/L (22.0-30.0); Globulin 2.5 g/dL (1.3-3.2); Glucose 89 mg/dl (74-100); Total Protein,Serum 6.8 g/dl (6.3-8.2)
[2023-11-14 19:35] LABS: 25-OH Vitamin D, Total 54.1 ng/mL (30-100); Hemoglobin A1C 4.9 % (4.0-6.0)
[2023-11-14 19:50] LABS: Thyroid Stimulating Hormone 3.57 uIU/mL (0.465-4.68)
[2023-11-14 21:09] LABS: Creatinine,Urine Random 71 mg/dL (Not Estab.)
[2023-11-14 22:30] LABS: Prostate Specific Ag Screen 1.3 ng/ml (0.0-4.0)
[2023-11-14 22:49] LABS: Vitamin B12 488 pg/mL (239-931)
== END 2023-11-14 23:59 | disposition home or self-care (01) ==
LOC: LAB.DROPOF 11-15 10:21
PROVIDERS: PCP Nurse Practitioner; Visit Provider Nurse Practitioner
DX: K21.9 Gastro-esophageal reflux disease without esophagitis (principal); E66.01 Morbid (severe) obesity due to excess calories; Z68.43 Body mass index [BMI] 50.0-59.9, adult; I10 Essential (primary) hypertension; E78.2 Mixed hyperlipidemia; Z12.5 Encounter for screening for malignant neoplasm of prostate
CPT/HCPCS: 80053; 82043; 82306; 82570; 82607; 83036; 84443; G0103

== ENCOUNTER 2024-03-07 18:33 | Emergency (ER) | payer BC, SELFPAY ==
[2024-03-07 19:31] VITALS: BP 150/84; PULSE 60; RESP 22; TEMP 36.5; O2SAT 97; BMI 51.7
--- NOTE | 2024-03-07 19:34 | XR_ITS ---
PROCEDURE INFORMATION: Exam: XR Chest Exam date and time: 03/07/2024 7:34 PM Age: 53 years old Clinical indication: Cough and shortness of breath; Additional info: R/O pna TECHNIQUE: Imaging protocol: Radiologic exam of the chest. Views: 2 views. COMPARISON: CR XR CHEST 2V 10/12/2023 11:44 AM FINDINGS: Lungs: Unremarkable. No consolidation. Pleural spaces: Unremarkable. No pleural effusion. No pneumothorax. Heart/Mediastinum: Unremarkable. No cardiomegaly. Bones/joints: Unremarkable. IMPRESSION: No acute findings.
--- NOTE | 2024-03-07 19:34 | ED_ITS ---
Discharge Plan Disposition Patient Disposition: Home, Self-Care Condition: Good Prescriptions Prescriptions: New benzonatate 100 mg capsule 100 mg PO TIDP PRN (Reason: Cough) Qty: 30 0RF methylprednisolone 4 mg Tablets,Dose Pack 4 mg PO DIRECTED 6 Days Qty: 21 0RF Rx Instructions: Take 1 pack as directed for 6 days amoxicillin-pot clavulanate 875-125 mg Tablet 1 tab PO Q12H Qty: 20 0RF No Action aspirin [Adult Low Dose Aspirin] 81 mg tablet,delayed release (DR/EC) 81 mg PO DAILY Qty: 30 5RF telmisartan 80 mg tablet 80 mg PO DAILY Qty: 90 3RF Co [id number] E-Fish Oil 25-150-200 mg-mg-unit capsule 1 cap PO DAILY cyclosporine [Restasis] 0.05 % dropperette 1 drp ophthalmic (eye) Q12H Trelegy Ellipta 200-62.5-25 mcg blister with device 1 inh inhalation DAILY 90 Days Qty: 90 2RF levalbuterol HCl 1.25 mg/3 mL solution for nebulization 1.25 mg inhalation Q4-6H PRN famotidine 20 mg tablet 20 mg PO BID Qty: 60 2RF tadalafil 5 mg tablet 5 mg PO DAILY Qty: 30 2RF Wegovy 0.5 mg/0.5 mL pen injector 0.5 mg SQ WEEKLY Qty: 2 2RF Rx Instructions: administer weeks 5 through 8 of therapy amlodipine 10 mg tablet See Rx Instructions .ROUTE .COMPLEX Qty: 90 3RF Dose Instruction: Take 1 tablet by mouth once daily Rx Instructions: Take 1 tablet by mouth once daily celecoxib 200 mg capsule See Rx Instructions .ROUTE .COMPLEX Qty: 90 1RF Dose Instruction: Take 1 Capsule by mouth once daily for pain. Rx Instructions: Take 1 Capsule by mouth once daily for pain. levocetirizine 5 mg tablet See Rx Instructions .ROUTE .COMPLEX Qty: 30 2RF Dose Instruction: Take 1 Tablet by mouth once daily. Rx Instructions: Take 1 Tablet by mouth once daily. levalbuterol tartrate 45 mcg/actuation HFA aerosol inhaler See Rx Instructions .ROUTE .COMPLEX Qty: 15 5RF Dose Instruction: Use 2 puffs every 6 hours As Needed for shortness of breath or wheezing Rx Instructions: Use 2 puffs every 6 hours As Needed for shortness of breath or wheezing montelukast 10 mg tablet 10 mg PO DAILY Qty: 30 2RF Rx Instructions: TAKE 1 TABLET BY MOUTH EVERY EVENING hydrochlorothiazide 25 mg tablet 25 mg PO DAILY PRN (Reason: edema) Qty: 90 0RF allopurinol 300 mg tablet See Rx Instructions .ROUTE .COMPLEX Qty: 90 1RF Dose Instruction: Take 1 Tablet by mouth once daily for arthritis. Rx Instructions: Take 1 Tablet by mouth once daily for arthritis. rosuvastatin 5 mg tablet See Rx Instructions .ROUTE .COMPLEX Qty: 90 3RF Dose Instruction: Take 1 Tablet by mouth once daily. Rx Instructions: Take 1 Tablet by mouth once daily. Tezspire 210 mg/1.91 mL (110 mg/mL) pen injector See Rx Instructions .ROUTE .COMPLEX Qty: 2 2RF Dose Instruction: INJECT 1 PEN UNDER THE SKIN EVERY 28 DAYS Rx Instructions: INJECT 1 PEN UNDER THE SKIN EVERY 28 DAYS metoprolol succinate 50 mg tablet extended release 24 hr See Rx Instructions .ROUTE .COMPLEX Qty: 30 2RF Dose Instruction: Take 1 Tablet by mouth once daily. Rx Instructions: Take 1 Tablet by mouth once daily. cholecalciferol (vitamin D3) [Vitamin D3] 125 mcg (5,000 unit) tablet See Rx Instructions .ROUTE .COMPLEX Qty: 30 5RF Dose Instruction: Take 1 Tablet by mouth once daily. Rx Instructions: Take 1 Tablet by mouth once daily. omeprazole 40 mg capsule,delayed release(DR/EC) 40 mg PO DAILY Qty: 30 2RF lysine 500 MG tablet 1,000 mg PO DAILY multivitamin 1 EACH capsule 1 each PO DAILY Referrals Follow up/Referrals: Binta Roche APRN [Primary Care Provider] - See instructions Activity Restrictions/Add. Instructions Additional Instructions/Restrictions: Drink plenty of fluids. Take tylenol or ibuprofen for pain or fever. Take the medications as directed. Follow up with your regular doctor. GO TO THE ER FOR ANY WORSENING SYMPTOMS Clinical Impressions Clinical Impression: Asthma exacerbation Stand Alone Forms Stand Alone Forms: Work/School Release Instructions Patient Instructions: Asthma -- Adult, DI for Asthma -- Adult, Methylprednisolone, Ceftriaxone Injection, Dexamethasone Injection Print Language Print Language: Tajik Discharge ED Provider: Morro Goodwin [facility] HPI General Stated complaint: SOA Mode of Arrival: Ambulatory Source of Information: Patient Time Seen by Provider: 03/07/24 19:34 Description of Symptoms (Recalled from Triage Doc. by RN): DRY COUGH, CHEST CONGESTION, SINUS PRESSURES, STATES FEELS LIKE HE DID WHEN HE HAD PNA IN THE SPRING , PATIENT REQUESTING CHEST XRAY HEENT Symptoms (Recalled from RN notes): No Resp Symptoms (Recalled from RN notes): Yes Skin Symptoms (Recalled from RN notes): No MS Symptoms (Recalled from RN notes): No Functional Status (Recalled from RN notes): WNL Related Data Home Medications ?Medication ?Instructions ?Recorded ?Confirmed lysine 500 mg tablet 1,000 mg PO DAILY Supplement 04/01/20 03/12/24 multivitamin 1 each PO DAILY Supplement 04/01/20 03/12/24 ubidecarenone-omega 3-vit E 25 1 cap PO DAILY 09/22/22 03/12/24 mg-150 (90-60) mg-200 unit capsule (Co [id number] E-Fish Oil) levalbuterol HCl 1.25 mg/3 mL 1.25 mg inhalation Q4-6H PRN 10/12/23 03/12/24 solution for nebulization cyclosporine 0.05 % eye drops in a 1 drp ophthalmic (eye) Q12H 11/29/23 03/12/24 dropperette (Restasis) Previous Rx's ?Medication ?Instructions ?Recorded amlodipine 10 mg tablet See Rx Instructions .Route 05/11/23 .COMPLEX #90 tabs celecoxib 200 mg capsule See Rx Instructions .Route 07/20/23 .COMPLEX #90 caps levocetirizine 5 mg tablet See Rx Instructions .Route 10/04/23 .COMPLEX #30 tabs aspirin 81 mg tablet,delayed 81 mg PO DAILY #30 tabs 10/31/23 release (Adult Low Dose Aspirin) telmisartan 80 mg tablet 80 mg PO DAILY #90 tabs 10/31/23 levalbuterol tartrate 45 See Rx Instructions .Route 11/04/23 mcg/actuation aerosol inhaler .COMPLEX #15 grams fluticasone fur. 200 mcg-umeclid 1 inh inhalation DAILY 90 days #90 11/29/23 62.5 mcg-vilant 25 mcg ea inhalat.powder (Trelegy Ellipta) hydrochlorothiazide 25 mg tablet 25 mg PO DAILY PRN edema #90 tabs 01/03/24 montelukast 10 mg tablet 10 mg PO DAILY #30 tabs 01/03/24 allopurinol 300 mg tablet See Rx Instructions .Route 01/25/24 .COMPLEX #90 tabs famotidine 20 mg tablet 20 mg PO BID #60 tabs 02/13/24 tadalafil 5 mg tablet 5 mg PO DAILY #30 tabs 02/13/24 rosuvastatin 5 mg tablet See Rx Instructions .Route 02/23/24 .COMPLEX #90 tabs cholecalciferol (vitamin D3) 125 See Rx Instructions .Route 02/28/24 mcg (5,000 unit) tablet (Vitamin .COMPLEX #30 tabs D3) metoprolol succinate 50 mg See Rx Instructions .Route 02/28/24 tablet,extended release 24 hr .COMPLEX #30 tabs omeprazole 40 mg capsule,delayed 40 mg PO DAILY #30 caps 02/28/24 release tezepelumab-ekko 210 mg/1.91 mL See Rx Instructions .Route 02/28/24 (110 mg/mL) subcutaneous pen .COMPLEX #2 mL injector (Jacque) amoxicillin 875 mg-potassium 1 tab PO Q12H #20 tabs 03/07/24 clavulanate 125 mg tablet benzonatate 100 mg capsule 100 mg PO TIDP PRN Cough #30 caps 03/07/24 methylprednisolone 4 mg tablets in 4 mg PO DIRECTED 6 days #21 tabs 03/07/24 a dose pack semaglutide (weight loss) 0.5 0.5 mg (0.5 mL) SQ WEEKLY #2 mL 03/12/24 mg/0.5 mL subcutaneous pen injector (Ssear) Allergies Allergy/AdvReac Type Severity Reaction Status Date / Time lisinopril Allergy Unknown I-ITCHING Verified 03/12/24 09:41 naproxen Allergy Unknown Unknown Verified 03/12/24 09:41 allergy reaction spironolactone AdvReac muscle Verified 03/12/24 09:41 cramps Worker's Comp Is this a Worker's Comp case?: No [facility] Disclaimer: The information contained in this section may have been updated after the patient was seen, as this information can be updated by other users. Medical History (Updated 03/12/24 @ 10:21 by Binta Roche APRN) Right ankle pain Hyperlipidemia Coronary artery disease Cough Gastroesophageal reflux disease Asthma exacerbation Sleep apnea Asthma Nasal turbinate hypertrophy Deviated septum Sinusitis Hyperuricemia COVID-19 long hauler manifesting chronic fatigue Chronic cough Allergic rhinitis, unspecified Pneumonia due to COVID-19 virus Family history of asthma Severe persistent asthma Dyspnea on exertion Oral candidiasis Male erectile dysfunction, unspecified Obesity RADHA (obstructive sleep apnea) HTN (hypertension) Abnormal electrocardiography Edema Dyspnea Surgical History Status post nasal septoplasty History of carpal tunnel surgery History of tonsillectomy Family History Other Cancer Diabetes Heart attack Hypertension Social History Smoking Status: Former smoker tobacco type: cigarettes second hand exposure: No alcohol intake: current alcohol intake frequency: holidays/special occasions only substance use type: denies use current occupational status: employed Travel in the last 8 weeks: None household members: none housing: house current occupation: Airline Transport Pilot caffeine: Yes ROS Obtained: Yes All systems reviewed & no additional complaints except as documented Constitutional Constitutional: Reports poor appetite Eyes Eyes: Reports system reviewed and no additional complaints, except as documented ENT Ears, Nose, Mouth, and Throat: Reports as per HPI Cardiovascular Cardiovascular: Reports system reviewed and no additional complaints, except as documented and Denies chest pain Respiratory Respiratory: Denies shortness of breath, Reports chest congestion, Reports cough , Denies stridor and Reports wheezing Gastrointestinal Gastrointestingal: Reports system reviewed and no additional complaints, except as documented; Denies abdominal pain, diarrhea or vomiting Musculoskeletal Musculoskeletal: Reports system reviewed and no additional complaints, except as documented and Denies arthralgias Integumentary/Breasts Skin/Breast: Reports system reviewed and no additional complaints, except as documented and Denies rash Neurologic Neurologic: Denies paresthesias Allergic/Immunologic Allergic/Immunologic: Reports wheezing Physical Exam General General appearance: alert and in no apparent distress Head Head exam: atraumatic, normocephalic and normal inspection Eye Eye exam: Present normal appearance, PERRL and EOMI ENT ENT exam: Present normal exam, normal oropharynx, mucous membranes moist, TM's normal bilaterally and normal external ear exam Neck Neck exam: Present normal inspection, full ROM and trachea midline; Absent meningismus or lymphadenopathy Chest Chest inspection: Present normal inspection and symmetric chest wall rise; Absent tenderness Respiratory Respiratory exam: Present normal lung sounds bilaterally; Absent respiratory distress Cardiovascular Cardiovascular exam: Present regular rate and normal rhythm; Absent JVD Abdominal Exam Abdominal exam: Present soft and normal bowel sounds; Absent distention, tenderness or guarding Extremities Exam Extremities exam: Present normal inspection, full ROM and normal capillary refill; Absent calf tenderness Back Exam Back exam: Present normal inspection; Absent tenderness Neurological Exam Neurological exam: Present alert and oriented X3 Psychiatric Psychiatric exam: Present normal affect and normal mood Skin Skin exam: Present warm, dry, intact and normal color Lymphatic Lymphatic Findings: no adenopathy Medical Decision Making Medical Records Medical records reviewed: No I reviewed the patient's medical records. Screening: Per USPSTF and CDC recommendations, given the prevalence of disease in our region, it is our hospital?s policy to screen for HIV and viral Hepatitis for all patients aged 18 and over and those with ongoing risk factors. Eric Inquiry Pt receiving controlled substance: No Vital Signs: 03/07/24 19:31 Temperature 97.7 F Temperature Source Oral Pulse Rate [Left Radial] 60 Respiratory Rate 22 Blood Pressure [Left Arm] 150/84 H Blood Pressure Mean [Left Arm] 106 02 Sat by Pulse Oximetry 97
[2024-03-07] MEDS: IPRATROPIUM/ALBUTEROL 3 ML NEB IH (20:03)
[2024-03-07] MEDS: cefTRIAXone 1GM VIAL 1 GM IM (20:07)
[2024-03-07] MEDS: DEXAMETHASONE 4MG/ML 1ML VIAL 8 MG IM (20:07)
[2024-03-07 20:25] VITALS: BP 150/84; PULSE 60; RESP 22; TEMP 36.5
[2024-03-07 20:30] LABS: Coronavirus 19, PCR Not Detected (NotDetected); Influenza A, PCR Not Detected (NotDetected); Influenza B, PCR Not Detected (NotDetected)
== END 2024-03-07 20:31 | disposition home or self-care (01) ==
PROVIDERS: Emergency Provider Nurse Practitioner Family; PCP Nurse Practitioner
DX: J45.901 Unspecified asthma with (acute) exacerbation (principal)
CPT/HCPCS: 71046; 87636; 96372; 99213; G0381; J0696; J1100; J7620

== ENCOUNTER 2024-03-12 10:50 | Outpatient (CLI) | payer BC, SELFPAY ==
[2024-03-12 19:54] LABS: Alanine Aminotransferase 66 U/L (12-78); Albumin Level 4.2 g/dl (3.5-5.0); Albumin/Globulin Ratio 1.9 (1.1-1.8); Alkaline Phosphatase 86 U/L (38-126); Anion Gap 11.9 mEq/L (5-15); Aspartate Amino Transferase 55 U/L (17-59); Bilirubin,Total 0.7 mg/dl (0.2-1.3); Blood Urea Nitrogen 15 mg/dl (9-20); Calcium 9.2 mg/dl (8.4-10.2); Carbon Dioxide 27 mmol/L (22.0-30.0); Chloride 105 mmol/L (98-107); Chol/HDL Ratio 2.3 (1-3.5); Cholesterol 152 mg/dl (140-200); Estimated Glomerular Filt Rate 118 ml/min (>60); GFR (African American) 143 ML/MIN (>60); Globulin 2.2 g/dL (1.3-3.2); Glucose 91 mg/dl (74-100); HDL Cholesterol 67 mg/dl (40-60); Potassium 3.9 mmoL/L (3.5-5.1); Sodium 140 mmol/L (136-145); Total Protein,Serum 6.4 g/dl (6.3-8.2); Triglycerides 86 mg/dl (30-150); VLDL Cholesterol 17 mg/dL (0-40)
[2024-03-12 20:07] LABS: Direct LDL Cholesterol 74.82 mg/dL (100-129)
[2024-03-12 21:47] LABS: Thyroid Stimulating Hormone 2.73 uIU/mL (0.465-4.68)
== END 2024-03-12 23:59 | disposition home or self-care (01) ==
LOC: LAB.DROPOF 03-13 09:23
PROVIDERS: PCP Nurse Practitioner; Visit Provider Nurse Practitioner
DX: E66.01 Morbid (severe) obesity due to excess calories (principal); Z68.43 Body mass index [BMI] 50.0-59.9, adult; I10 Essential (primary) hypertension
CPT/HCPCS: 80053; 80061; 84443

== ENCOUNTER 2024-04-16 17:58 | Emergency (ER) | payer BC, SELFPAY ==
[2024-04-16 18:50] VITALS: BP 149/91; PULSE 63; RESP 17; TEMP 37.2; O2SAT 98; BMI 47.0
--- NOTE | 2024-04-16 19:11 | ED_ITS ---
Discharge Plan Disposition Patient Disposition: Home, Self-Care Condition: Good Prescriptions Prescriptions: New doxycycline hyclate 100 mg capsule 100 mg PO BID Qty: 20 0RF guaifenesin [Mucinex] 1,200 mg tablet extended release 12hr 1,200 mg PO Q12H PRN (Reason: congestion) Qty: 20 0RF methylprednisolone [Medrol (Scar)] 4 mg tablets,dose pack See Rx Instructions .Route .COMPLEX 6 Days Qty: 21 0RF Rx Instructions: taper pack; No Action celecoxib 200 mg capsule 200 mg PO DAILY Patient Comments: TAKE 1 CAPSULE BY MOUTH ONCE DAILY FOR PAIN. metoprolol succinate 50 mg tablet extended release 24 hr 50 mg PO DAILY Patient Comments: TAKE 1 TABLET BY MOUTH ONCE DAILY. omeprazole 40 mg capsule,delayed release(DR/EC) 40 mg PO DAILY Patient Comments: TAKE 1 CAPSULE BY MOUTH ONCE DAILY. famotidine 20 mg tablet 20 mg PO DAILY Patient Comments: TAKE 1 TABLET BY MOUTH TWICE A DAY amlodipine 10 mg tablet 10 mg PO DAILY Patient Comments: TAKE 1 TABLET BY MOUTH ONCE DAILY telmisartan 80 mg tablet 80 mg PO DAILY montelukast 10 mg tablet 10 mg PO DAILY Patient Comments: TAKE 1 TABLET BY MOUTH EVERY EVENING allopurinol 300 mg tablet 300 mg PO DAILY Patient Comments: TAKE 1 TABLET BY MOUTH ONCE DAILY FOR ARTHRITIS. cyclosporine [Restasis] 0.05 % dropperette 1 drp ophthalmic (eye) BID Patient Comments: PLACE 1 DROP INTO EACH EYE TWICE DAILY. rosuvastatin 5 mg tablet 5 mg PO DAILY Patient Comments: TAKE 1 TABLET BY MOUTH ONCE DAILY. levalbuterol tartrate 45 mcg/actuation HFA aerosol inhaler 2 puff INHALATION Q6HP PRN (Reason: SOA) Patient Comments: USE 2 PUFFS EVERY 6 HOURS NEEDED FOR SHORTNESS OF BREATH OR WHEEZING. levocetirizine 5 mg tablet 5 mg PO DAILY Patient Comments: TAKE 1 TABLET BY MOUTH ONCE DAILY. Tezspire 210 mg/1.91 mL (110 mg/mL) pen injector 210 mg SQ WEEKLY Referrals Follow up/Referrals: Binta Roche APRN [Primary Care Provider] - See instructions Activity Restrictions/Add. Instructions Additional Instructions/Restrictions: Separate dosed of Doxy with your Omeprazole by 2 hours * Start antibiotic today. Be sure to complete entire prescription even if feeling better * Monitor temp. Tylenol every 4 hours as needed and / or ibuprofen every 6 hours as needed ( As long as your primary care physician has told you that it ok to take both. For fever/aches/pains ER if no less than 101 despite Tylenol or Motrin * Humidifier/vaporizer or hot steamy shower * Mucinex for your cough Be sure to drink lots of water. * *Start steroid today. Helps with inflammation therefore, cough and wheezing. Follow directions on the package. Reviewed side effects. Patient reports taking them before. Follow up IMMEDIATELY for new or worsening of symptoms OR no noticeable improvement over the next 48-72 hours. 911 immediately for any life threatening symptoms such as chest pain or difficulty breathing Clinical Impressions Clinical Impression: Sinusitis, Acute bronchitis Instructions Patient Instructions: DI for Sinusitis, Doxycycline, Acute Bronchitis Print Language Print Language: Montenegrin Discharge ED Provider: Laura Donaldson [facility] [place] General Stated complaint: cough, gabriela, SOA Mode of Arrival: Ambulatory Source of Information: Patient Limitations: No Limitations Time Seen by Provider: 04/16/24 19:11 Description of Symptoms (Recalled from Triage Doc. by RN): PATIENT C/O COUGH AND CONGESTION FOR THE PAST SEVERAL DAYS HEENT Symptoms (Recalled from RN notes): Yes Resp Symptoms (Recalled from RN notes): Yes Skin Symptoms (Recalled from RN notes): No MS Symptoms (Recalled from RN notes): No Functional Status (Recalled from RN notes): WNL History of Present Illness Provider Complaint: Patient states that he has been having sinus pain and pressure for several days and drainage in the back of his throat States today the pressure is not any better and worried it will move into his chest if he dont get it taken care of has been having some cough and chest congestion Related Data Home Medications ?Medication ?Instructions ?Recorded ?Confirmed allopurinol 300 mg tablet 300 mg PO DAILY 04/16/24 04/16/24 amlodipine 10 mg tablet 10 mg PO DAILY 04/16/24 04/16/24 celecoxib 200 mg capsule 200 mg PO DAILY 04/16/24 04/16/24 cyclosporine 0.05 % eye drops in a 1 drp ophthalmic (eye) BID 04/16/24 04/16/24 dropperette (Restasis) famotidine 20 mg tablet 20 mg PO DAILY 04/16/24 04/16/24 levalbuterol tartrate 45 2 puff inhalation Q6HP PRN SOA 04/16/24 04/16/24 mcg/actuation aerosol inhaler levocetirizine 5 mg tablet 5 mg PO DAILY 04/16/24 04/16/24 metoprolol succinate 50 mg 50 mg PO DAILY 04/16/24 04/16/24 tablet,extended release 24 hr montelukast 10 mg tablet 10 mg PO DAILY 04/16/24 04/16/24 omeprazole 40 mg capsule,delayed 40 mg PO DAILY 04/16/24 04/16/24 release rosuvastatin 5 mg tablet 5 mg PO DAILY 04/16/24 04/16/24 telmisartan 80 mg tablet 80 mg PO DAILY 04/16/24 04/16/24 tezepelumab-ekko 210 mg/1.91 mL 210 mg SQ WEEKLY 04/16/24 04/16/24 (110 mg/mL) subcutaneous pen injector (Tezspire) Previous Rx's ?Medication ?Instructions ?Recorded doxycycline hyclate 100 mg capsule 100 mg PO BID #20 caps 04/16/24 guaifenesin 1,200 mg tablet, 1,200 mg PO Q12H PRN congestion 04/16/24 extended release 12 hr (Mucinex) #20 tabs methylprednisolone 4 mg tablets in See Rx Instructions .Route 04/16/24 a dose pack (Medrol (Scar)) .COMPLEX 6 days #21 tabs Allergies Allergy/AdvReac Type Severity Reaction Status Date / Time lisinopril Allergy Unknown Cough Verified 04/16/24 19:05 naproxen Allergy Unknown Nausea Verified 04/16/24 19:05 spironolactone AdvReac muscle Verified 03/12/24 09:41 cramps Worker's Comp Is this a Worker's Comp case?: No [facility] Disclaimer: The information contained in this section may have been updated after the patient was seen, as this information can be updated by other users. Medical History (Updated 04/16/24 @ 19:21 by Laura Donaldson APRN) Right ankle pain Hyperlipidemia Coronary artery disease Cough Gastroesophageal reflux disease Asthma exacerbation Sleep apnea Asthma Nasal turbinate hypertrophy Deviated septum Sinusitis Hyperuricemia COVID-19 long hauler manifesting chronic fatigue Chronic cough Allergic rhinitis, unspecified Pneumonia due to COVID-19 virus Family history of asthma Severe persistent asthma Dyspnea on exertion Oral candidiasis Male erectile dysfunction, unspecified Obesity RADHA (obstructive sleep apnea) HTN (hypertension) Abnormal electrocardiography Edema Dyspnea Surgical History Status post nasal septoplasty History of carpal tunnel surgery History of tonsillectomy Family History Other Cancer Diabetes Heart attack Hypertension Social History Smoking Status: Former smoker tobacco type: cigarettes second hand exposure: No alcohol intake: current alcohol intake frequency: holidays/special occasions only substance use type: denies use current occupational status: employed Travel in the last 8 weeks: None household members: none housing: house current occupation: Benefits Representative caffeine: Yes Have you lived/traveled outside [place] in past 30 days?: No Contact w/someone who lives/traveled outside [place] past 30 days?: No Exposure to someone with infectious disease in past 14 days?: No Do you have a fever (greater than 100.4 F or 38 C)?: No Have you tested positive for COVID-19: No Exposed to someone with COVID-19 in past 14 days?: No Do you have a sore throat?: No Do you have a cough?: Yes Do you have any weakness?: No Do you have any diarrhea?: No Are you experiencing any unusual bleeding?: No Do you have any muscle aches/pain?: No Do you have any abdominal pain?: No Are you experiencing loss of taste or smell?: No ROS Obtained: Yes All systems reviewed & no additional complaints except as documented and Yes Systems reviewed as appropriate & no additional complaints except as documented Constitutional Constitutional: Reports system reviewed and no additional complaints, except as documented and Reports as per HPI ENT Ears, Nose, Mouth, and Throat: Reports system reviewed and no additional complaints, except as documented, Reports as per HPI, Reports sinus pain and Reports sinus pressure Cardiovascular Cardiovascular: Reports system reviewed and no additional complaints, except as documented and Reports as per HPI Respiratory Respiratory: Reports system reviewed and no additional complaints, except as documented, Reports as per HPI, Reports chest congestion and Reports cough Gastrointestinal Gastrointestingal: Reports system reviewed and no additional complaints, except as documented and as per HPI Physical Exam General General appearance: alert and in no apparent distress ENT ENT exam: Present mucous membranes moist Expanded ENT Exam Nose exam: Present sinus tenderness Throat exam: Present other (PND noted) Respiratory Respiratory exam: Present normal lung sounds bilaterally; Absent respiratory distress or wheezes Cardiovascular Cardiovascular exam: Present regular rate, normal rhythm and normal heart sounds Neurological Exam Neurological exam: Present alert, oriented X3 and normal gait Medical Decision Making Medical Records Screening: Per USPSTF and CDC recommendations, given the prevalence of disease in our region, it is our hospital?s policy to screen for HIV and viral Hepatitis for all patients aged 18 and over and those with ongoing risk factors. Eric Inquiry Pt receiving controlled substance: No Eric was queried for this patient: No Vital Signs: 04/16/24 18:50 Temperature 98.9 F Temperature Source Oral Pulse Rate [Left Brachial] 63 Respiratory Rate 17 Blood Pressure [Left Arm] 149/91 H Blood Pressure Mean [Left Arm] 110 Blood Pressure Source [Left Arm] Automatic Cuff Blood Pressure Position [Left Arm] Sitting 02 Sat by Pulse Oximetry 98 Oxygen Delivery Method Room Air
[2024-04-16 19:24] VITALS: BP 149/91; PULSE 63; RESP 17; TEMP 37.2; O2SAT 98
== END 2024-04-16 19:27 | disposition home or self-care (01) ==
PROVIDERS: Emergency Provider Nurse Practitioner; PCP Nurse Practitioner
DX: J01.90 Acute sinusitis, unspecified (principal); J02.9 Acute pharyngitis, unspecified
CPT/HCPCS: 99213; G0381

== ENCOUNTER 2024-06-06 11:46 | Outpatient (CLI) | payer BC, SELFPAY ==
--- NOTE | 2024-06-06 11:53 | XR_ITS ---
FINAL REPORT TECHNIQUE: Chest PA & Lateral CLINICAL HISTORY: asthma exacerbation, cough, pneumonia COMPARISON: 10/12/2023 FINDINGS: 2 views of the chest were performed. The heart size is normal. The mediastinum is within normal limits. There is no acute cardiopulmonary process. There are no pleural effusions. There is no pneumothorax. The bony thorax appears intact. IMPRESSION: No acute cardiopulmonary process. Reviewed, Interpreted and Dictated by Chirag Mcpherson MD Transcribed by Marisela Ryan Authenticated and [facility]
== END 2024-06-06 23:59 | disposition home or self-care (01) ==
LOC: RAD 11:48
PROVIDERS: PCP Nurse Practitioner; Visit Provider Nurse Practitioner
DX: J18.9 Pneumonia, unspecified organism (principal); J45.901 Unspecified asthma with (acute) exacerbation
CPT/HCPCS: 71046

== ENCOUNTER 2024-08-20 11:05 | Outpatient (CLI) | payer BC, SELFPAY ==
[2024-08-20 19:41] LABS: Creatinine,Urine Random 171 mg/dL (Not Estab.)
[2024-08-20 19:43] LABS: Microalbumin/Creatinine Ratio 16.5
[2024-08-20 20:10] LABS: Albumin Level 4.3 g/dl (3.5-5.0); Chloride 108 mmol/L (98-107); Potassium 3.6 mmoL/L (3.5-5.1); Sodium 141 mmol/L (136-145)
[2024-08-20 20:13] LABS: Alanine Aminotransferase 27 U/L (12-78); Albumin/Globulin Ratio 1.8 (1.1-1.8); Alkaline Phosphatase 100 U/L (38-126); Anion Gap 9.6 mEq/L (5-15); Aspartate Amino Transferase 38 U/L (17-59); Bilirubin,Total 0.6 mg/dl (0.2-1.3); Blood Urea Nitrogen 15 mg/dl (9-20); Calcium 9.2 mg/dl (8.4-10.2); Carbon Dioxide 27 mmol/L (22.0-30.0); Estimated Glomerular Filt Rate 88 ml/min (>60); GFR (African American) 106 ML/MIN (>60); Globulin 2.4 g/dL (1.3-3.2); Glucose 91 mg/dl (74-100); Total Protein,Serum 6.7 g/dl (6.3-8.2)
[2024-08-20 21:09] LABS: Hepatitis C Ab Qual. W/ RFX NEGATIVE (Negative)
--- OUTSIDE RECORDS SUMMARY | 2024-08-21 13:01 | XMS_ITS | Data Portability ---
Author Organization [facility] ADMIN Address [address] [place] [id number] Care Team Providers Care Regional Trainer Name Role Phone KENNY EDWARDS Primary Care Provider [phone] Assessment Encounter Date Assessment Date Assessment LastModified by Organization Details LastModified Time 04/02/2022 04/02/2022 51-year-old male with nonalcoholic fatty liver disease. Patient offered liver biopsy to differentiate FERRER from nonalcoholic fatty liver. he will defer for now. Plans to start exercising and lose some weight. He will consider liver biopsy. Repeat labs as below Not available 04/02/2022 11:01:59 10/01/2022 10/01/2022 52-year-old male with elevated liver enzymes. This likely represents nonalcoholic fatty liver disease. Continue exercise and weight loss. Will recheck labs today. Not available 10/01/2022 12:11:39 04/01/2023 04/01/2023 52-year-old male with elevated liver enzymes. This likely represents nonalcoholic fatty liver disease. he has discontinued therapy with Wegovy and decreased exercise. His weight is up approximately 20 lb. Will recheck liver enzymes. Return to clinic in 6 months Not available 04/01/2023 12:40:56 Plan of Treatment Reminders Order Date Submit Date Provider Last Modified By Organization Details Last Modified Time Details Appointments None recorded . Lab CMP, serum or plasma 023 04/01/20 23 PATEROS [facility], [address], [place], [address], 07:12:37 CMP, serum or plasma 023 10/02/19 23 [facility] (Registration ), [address], [place], [address], 3 12:39:07 CBC 023 10/02/[address] (Registration ), [address], [place], [address], 3 07:25:32 CMP, serum or plasma 022 04/02/20 22 [facility] (Registration ), [address], [place], [address], 2 11:49:56 CBC 022 04/02/[address] (Registration ), [address], [place], [address], 2 16:09:12 PT/INR 022 04/02/[address] (Registration ), [address], [place], [address], 2 16:09:12 Referral None recorded . Procedures None recorded . Surgeries None recorded . Imaging None recorded . Medication Orders None recorded . Patient TargetsNo targets recorded. Patient InstructionsNo instructions recorded. Reason for Referral None Reported. Results Created Date Observation Date Name Description Value Unit Range Abnormal Flag Note LastModifiedBy Organization Detail LastModifiedTime 04/02/20 22 04/02/2022 CBC AUTO NO DIFF (HEMO GRAM) WBC 7.4 K/uL 4.0-10 .5 Not Available [facility] ([facility]) [address] [place], [address], 04/02/2022 11:31:42 04/02/20 22 04/02/2022 CBC AUTO NO DIFF (HEMO GRAM) RBC 4.9 M/mm3 4.7-6. 1 Not Available [facility] ([facility]) [address], [place], [address], 04/02/2022 11:31:42 04/02/20 22 04/02/2022 CBC AUTO NO DIFF (HEMO GRAM) HGB 14.7 gm/dL 13.5-1 8.0 Not Available [facility] ([facility]) [address], [place], [address], 04/02/2022 11:31:42 04/02/20 22 04/02/2022 CBC AUTO NO DIFF (HEMO GRAM) HCT 44.0 % 42.0-5 2.0 Not Available [facility] ([facility]) [address], [place], [address], 04/02/2022 11:31:42 04/02/20 22 04/02/2022 CBC AUTO NO DIFF (HEMO GRAM) MCV 90.0 fL 78-100 Not Available [facility] ([facility]) [address], [place], [address], 04/02/2022 11:31:42 04/02/20 22 04/02/2022 CBC AUTO NO DIFF (HEMO GRAM) MCH 30.1 pg 27-31 Not Available [facility] ([facility]) [address], [place], [address], 04/02/2022 11:31:42 04/02/20 22 04/02/2022 CBC AUTO NO DIFF (HEMO GRAM) MCHC 33.4 g/dL 32-36 Not Available [facility] ([facility]) [address], [place], [address], 04/02/2022 11:31:42 04/02/20 22 04/02/2022 CBC AUTO NO DIFF (HEMO GRAM) RDW 14.1 % 11.5-1 4.0 high Not Available [facility] ([facility]) [address] [facility], [place], [address], 04/02/2022 11:31:42 04/02/20 22 04/02/2022 CBC AUTO NO DIFF (HEMO GRAM) platelet count 257 K/uL 150-45 0 Not Available [facility] ([facility]) [address], [place], [address], 04/02/2022 11:31:42 04/02/20 22 04/02/2022 CBC AUTO NO DIFF (HEMO GRAM) manual differential NO Not Available [facility] ([facility]) [address], [place], [address], 04/02/2022 11:31:42 04/02/20 22 04/02/2022 PT (PROT HROMB IN TIME) W INR prothrombin time 10.3 secon ds 9.3-11 .4 Not Available [facility] ([facility]) [address], [place], [address], 04/02/2022 11:47:26 04/02/20 22 04/02/2022 PT (PROT HROMB IN TIME) W INR INR 1.0 ratio 0.97-1 .05 INR is inten ded to be used ONLY for patie nts on stabl e oral antic oagul ant thera py. Thera peuti c Range s: 2.0-3 .0 Usual Thera peuti c Range 2.5-3 .5 For patie nts with histo ry of Multi ple Deep Vein Throm bus or Mecha nical Heart Valve s Not Available [facility] ([facility]) [address], [place], [address], 04/02/2022 11:47:26 04/02/20 22 04/02/2022 COMP METAB OLIC PANEL sodium 136 mmol/ L 136-14 5 Not Available [facility] ([facility]) [address], [place], [address], 04/02/2022 11:49:56 04/02/20 22 04/02/2022 COMP METAB OLIC PANEL potassium 3.3 mmol/ L 3.6-5. 0 low Not Available [facility] ([facility]) [address], [place], [address], 04/02/2022 11:49:56 04/02/20 22 04/02/2022 COMP METAB OLIC PANEL chloride 100 mmol/ L 98-107 Not Available [facility] ([facility]) [address], [place], [address], 04/02/2022 11:49:56 04/02/20 22 04/02/2022 COMP METAB OLIC PANEL carbon dioxide 30.3 mmol/ L 21.0-3 2.0 Not Available [facility] ([facility]) [address] , [place], [address], 04/02/2022 11:49:56 04/02/20 22 04/02/2022 COMP METAB OLIC PANEL anion gap 9.0 Not Available [facility] ([facility]) [address] , [place], [address], 04/02/2022 11:49:56 04/02/20 22 04/02/2022 COMP METAB OLIC PANEL glucose 107 mg/dL 70-120 Not Available [facility] ([facility]) [address] , [place], [address], 04/02/2022 11:49:56 04/02/20 22 04/02/2022 COMP METAB OLIC PANEL BUN 11 mg/dL 7-18 Not Available [facility] ([facility]) [address] , [place], [address], 04/02/2022 11:49:56 04/02/20 22 04/02/2022 COMP METAB OLIC PANEL creatinine 0.8 mg/dL 0.6-1. 3 Not Available [facility] ([facility]) [address] , [place], [address], 04/02/2022 11:49:56 04/02/20 22 04/02/2022 COMP METAB OLIC PANEL glomerular filtration rate >60 mlper min 60- Not Available [facility] ([facility]) [address] , [place], [address], 04/02/2022 11:49:56 04/02/20 22 04/02/2022 COMP METAB OLIC PANEL total protein 7.3 g/dL 6.4-8. 2 Not Available [facility] ([facility]) [address] , [place], [address], 04/02/2022 11:49:56 04/02/20 22 04/02/2022 COMP METAB OLIC PANEL albumin 3.9 g/dL 3.4-5. 0 Not Available [facility] ([facility]) [address] , [place], [address], 04/02/2022 11:49:56 04/02/20 22 04/02/2022 COMP METAB OLIC PANEL globulin 3.4 Not Available [facility] ([facility]) [address] , [place], [address], 04/02/2022 11:49:56 04/02/20 22 04/02/2022 COMP METAB OLIC PANEL alb/glob ratio 1.1 0.7-2 Not Available [facility] ([facility]) [address] , [place], [address], 04/02/2022 11:49:56 04/02/20 22 04/02/2022 COMP METAB OLIC PANEL calcium 9.2 mg/dL 8.5-10 .5 Not Available [facility] ([facility]) [address] [place], [address], 04/02/2022 11:49:56 04/02/20 22 04/02/2022 COMP METAB OLIC PANEL bilirubin total 0.81 mg/dL 0.10-1 .00 Not Available [facility] ([facility]) [address] [place], [address], 04/02/2022 11:49:56 04/02/20 22 04/02/2022 COMP METAB OLIC PANEL AST (SGOT) 37 U/L 0-37 Not Available [facility] ([facility]) [address], [place], [address], 04/02/2022 11:49:56 04/02/20 22 04/02/2022 COMP METAB OLIC PANEL ALT (SGPT) 59 U/L 0-65 Not Available [facility] ([facility]) [address], [place], [address], 04/02/2022 11:49:56 04/02/20 22 04/02/2022 COMP METAB OLIC PANEL alk phosphatase 71 U/L 46-116 Not Available [facility] ([facility]) [address] , [place], [address], 04/02/2022 11:49:56 10/02/19 23 10/01/2022 CBC AUTO NO DIFF (HEMO GRAM) WBC 9.6 K/uL 4.0-10 .5 Not Available [facility] ([facility]) [address] , [place], [address], 10/01/2022 12:17:30 10/02/19 23 10/01/2022 CBC AUTO NO DIFF (HEMO GRAM) RBC 5.0 M/mm3 4.7-6. 1 Not Available [facility] ([facility]) [address] , [place], [address], 10/01/2022 12:17:30 10/02/19 23 10/01/2022 CBC AUTO NO DIFF (HEMO GRAM) HGB 14.7 gm/dL 13.5-1 8.0 Not Available [facility] ([facility]) [address], [place], [address], 10/01/2022 12:17:30 10/02/19 23 10/01/2022 CBC AUTO NO DIFF (HEMO GRAM) HCT 44.7 % 42.0-5 2.0 Not Available [facility] ([facility]) [address], [place], [address], 10/01/2022 12:17:30 10/02/19 23 10/01/2022 CBC AUTO NO DIFF (HEMO GRAM) MCV 89.9 fL 78-100 Not Available [facility] ([facility]) [address], [place], [address], 10/01/2022 12:17:30 10/02/19 23 10/01/2022 CBC AUTO NO DIFF (HEMO GRAM) MCH 29.6 pg 27-31 Not Available [facility] ([facility]) [address], [place], [address], 10/01/2022 12:17:30 10/02/19 23 10/01/2022 CBC AUTO NO DIFF (HEMO GRAM) MCHC 32.9 g/dL 32-36 Not Available [facility] ([facility]) [address] [facility], [place], [address], 10/01/2022 12:17:30 10/02/19 23 10/01/2022 CBC AUTO NO DIFF (HEMO GRAM) RDW 14.0 % 11.5-1 4.0 Not Available [facility] ([facility]) [address], [place], [address], 10/01/2022 12:17:30 10/02/19 23 10/01/2022 CBC AUTO NO DIFF (HEMO GRAM) platelet count 308 K/uL 150-45 0 Not Available [facility] ([facility]) [address], [place], [address], 10/01/2022 12:17:30 10/02/19 23 10/01/2022 CBC AUTO NO DIFF (HEMO GRAM) manual differential NO Not Available [facility] ([facility]) [address] , [place], [address], 10/01/2022 12:17:30 10/02/19 23 10/01/2022 COMP METAB OLIC PANEL sodium 141 mmol/ L 136-14 5 Not Available [facility] ([facility]) [address] , [place], [address], 10/01/2022 12:39:07 10/02/19 23 10/01/2022 COMP METAB OLIC PANEL potassium 3.4 mmol/ L 3.6-5. 0 low Not Available [facility] ([facility]) [address] , [place], [address], 10/01/2022 12:39:07 10/02/19 23 10/01/2022 COMP METAB OLIC PANEL chloride 105 mmol/ L 98-107 Not Available [facility] ([facility]) [address] , [place], [address], 10/01/2022 12:39:07 10/02/19 23 10/01/2022 COMP METAB OLIC PANEL carbon dioxide 31.0 mmol/ L 21.0-3 2.0 Not Available [facility] ([facility]) [address] , [place], [address], 10/01/2022 12:39:07 10/02/19 23 10/01/2022 COMP METAB OLIC PANEL anion gap 8.4 Not Available [facility] ([facility]) [address] , [place], [address], 10/01/2022 12:39:07 10/02/19 23 10/01/2022 COMP METAB OLIC PANEL glucose 99 mg/dL 70-120 Not Available [facility] ([facility]) [address] , [place], [address], 10/01/2022 12:39:07 10/02/19 23 10/01/2022 COMP METAB OLIC PANEL BUN 10 mg/dL 7-18 Not Available [facility] ([facility]) [address], [place], [address], 10/01/2022 12:39:07 10/02/19 23 10/01/2022 COMP METAB OLIC PANEL creatinine 0.8 mg/dL 0.6-1. 3 Not Available [facility] ([facility]) [address], [place], [address], 10/01/2022 12:39:07 10/02/19 23 10/01/2022 COMP METAB OLIC PANEL glomerular filtration rate >60 mlper min 60- Not Available [facility] ([facility]) [address], [place], [address], 10/01/2022 12:39:07 10/02/19 23 10/01/2022 COMP METAB OLIC PANEL total protein 7.4 g/dL 6.4-8. 2 Not Available [facility] ([facility]) [address], [place], [address], 10/01/2022 12:39:07 10/02/19 23 10/01/2022 COMP METAB OLIC PANEL albumin 3.8 g/dL 3.4-5. 0 Not Available [facility] ([facility]) [address], [place], [address], 10/01/2022 12:39:07 10/02/19 23 10/01/2022 COMP METAB OLIC PANEL globulin 3.6 Not Available [facility] ([facility]) [address], [place], [address], 10/01/2022 12:39:07 10/02/19 23 10/01/2022 COMP METAB OLIC PANEL alb/glob ratio 1.1 0.7-2 Not Available [facility] ([facility]) [address], [place], [address], 10/01/2022 12:39:07 10/02/19 23 10/01/2022 COMP METAB OLIC PANEL calcium 8.8 mg/dL 8.5-10 .5 Not Available [facility] ([facility]) [address], [place], [address], 10/01/2022 12:39:07 10/02/19 23 10/01/2022 COMP METAB OLIC PANEL bilirubin total 0.50 mg/dL 0.10-1 .00 Not Available [facility] ([facility]) [address], [place], [address], 10/01/2022 12:39:07 10/02/19 23 10/01/2022 COMP METAB OLIC PANEL AST (SGOT) 25 U/L 0-37 Not Available [facility] ([facility]) [address] [facility], [place], [address], 10/01/2022 12:39:07 10/02/19 23 10/01/2022 COMP METAB OLIC PANEL ALT (SGPT) 49 U/L 0-65 Not Available [facility] ([facility]) [address], [place], [address], 10/01/2022 12:39:07 10/02/19 23 10/01/2022 COMP METAB OLIC PANEL alk phosphatase 87 U/L 46-116 Not Available [facility] ([facility]) [address], [place], [address], 10/01/2022 12:39:07 04/01/20 23 04/02/2023 COMP. METAB OLIC PANEL (14) glucose 124 mg/dL 70-99 above high normal Not Available [facility] ([facility]) [address], [place], [place], [address], 04/02/2023 07:12:36 04/01/20 23 04/02/2023 COMP. METAB OLIC PANEL (14) BUN 14 mg/dL 6-24 Not Available [facility] ([facility]) [address], [place], [address], 04/02/2023 07:12:36 04/01/20 23 04/02/2023 COMP. METAB OLIC PANEL (14) creatinine 0.85 mg/dL 0.76-1 .27 Not Available [facility] ([facility]) [address], [place], [address], 04/02/2023 07:12:36 04/01/20 23 04/02/2023 COMP. METAB OLIC PANEL (14) eGFR 105 mL/mi n/1.7 3 >59 Not Available [facility] ([facility]) [address], [place], [address], 04/02/2023 07:12:36 04/01/20 23 04/02/2023 COMP. METAB OLIC PANEL (14) BUN/creatini ne ratio 16 9-20 Not Available [facility] ([facility]) [address], [place], [place], [address], 04/02/2023 07:12:36 04/01/20 23 04/02/2023 COMP. METAB OLIC PANEL (14) sodium 145 mmol/ L 134-14 4 above high normal Not Available [facility] ([facility]) [address], [place], [address], 04/02/2023 07:12:36 04/01/20 23 04/02/2023 COMP. METAB OLIC PANEL (14) potassium 3.8 mmol/ L 3.5-5. 2 Not Available [facility] ([facility]) [address], [place], [address], 04/02/2023 07:12:36 04/01/20 23 04/02/2023 COMP. METAB OLIC PANEL (14) chloride 106 mmol/ L 96-106 Not Available [facility] ([facility]) [address], [place], [address], 04/02/2023 07:12:36 04/01/20 23 04/02/2023 COMP. METAB OLIC PANEL (14) carbon dioxide, total 23 mmol/ L 20-29 Not Available [facility] ([facility]) [address], [place], [place], [address], 04/02/2023 07:12:36 04/01/20 23 04/02/2023 COMP. METAB OLIC PANEL (14) calcium 9.2 mg/dL 8.7-10 .2 Not Available [facility] ([facility]) [address] [place], [place], [address], 04/02/2023 07:12:36 04/01/20 23 04/02/2023 COMP. METAB OLIC PANEL (14) protein, total 6.1 g/dL 6.0-8. 5 Not Available [facility] ([facility]) [address], [place], [place], [address], 04/02/2023 07:12:36 04/01/20 23 04/02/2023 COMP. METAB OLIC PANEL (14) albumin 4.1 g/dL 3.8-4. 9 Not Available [facility] ([facility]) [address], [place], [place], [address], 04/02/2023 07:12:36 04/01/20 23 04/02/2023 COMP. METAB OLIC PANEL (14) globulin, total 2.0 g/dL 1.5-4. 5 Not Available [facility] ([facility]) [address], [place], [place], [address], 04/02/2023 07:12:36 04/01/20 23 04/02/2023 COMP. METAB OLIC PANEL (14) A/G ratio 2.1 1.2-2. 2 Not Available [facility] ([facility]) [address], [place], [place], [address], 04/02/2023 07:12:36 12/01/20 23 04/02/2023 COMP. METAB OLIC PANEL (14) bilirubin, total 0.5 mg/dL 0.0-1. 2 Not Available [facility] ([facility]) [address], [place], [place], [address], 04/02/2023 07:12:36 04/01/20 23 04/02/2023 COMP. METAB OLIC PANEL (14) alkaline phosphatase 74 IU/L 44-121 Not Available [facility] ([facility]) [address], [place], [place], [address], 04/02/2023 07:12:36 04/01/20 23 04/02/2023 COMP. METAB OLIC PANEL (14) AST (SGOT) 33 IU/L 0-40 Not Available [facility] ([facility]) [address], [place], [place], [address], 04/02/2023 07:12:36 04/01/20 23 04/02/2023 COMP. METAB OLIC PANEL (14) ALT (SGPT) 37 IU/L 0-44 Not Available [facility] ([facility]) [address], [place], [place], [address], 04/02/2023 07:12:36 04/01/20 22 10/08/2021 US, liver No observ ation record ed. Efrain Duong MD [address], [place], [address], 04/02/2022 10:20:16 Result Notes None recorded. Problems Name Problem SNOMED Code Status Onset Date Resolution Date Notes Provider Name and Address Organization Details Recorded Time Liver enzymes level above reference range 528564313 Active 2021 SALENA Louis - [place] & [place] 2 10:42:25 Sensorineur al hearing loss of bilateral ears 190653489 Active SALENA Esposito - [place] & [place] 3 11:00:36 Bilateral tinnitus 6253710180499 Active SALENA Esposito [facility] & [place] 3 11:00:36 Subjective tinnitus 64196058 Active SALENA Esposito [facility] & [place] 3 11:00:36 Problem Notes None recorded. Procedures Surgical History None recorded. Imaging Results Imaging Date Name Status LastModified by Organiz ation Details LastModified Time 10/08/2021 US, liver completed Efrain Duong MD [address], [place], [address], 04/02/2022 10:20:16 Procedure Notes None recorded. Medical Equipment None Reported. Allergies Allergen ID Allergen Name Allergen Category Reaction Reaction Severity Criticality Documentation Date Start Date Code Code System Note Provider Name and Address Organization Details Recorded Time 04096 lisinopri l medicatio n Not available Not available Not available 04/02/2022 84635 RxNorm SALENA Louis [facility] & [place] 2 10:35:16 10460 spironola ctone medicatio n muscle cramps Not available Not available 04/02/2022 9997 RxNorm SALENA Louis [facility] & [place] 2 10:35:37 Medications Name Sig Start Date Stop Date Status Note LastModified by Organization Details LastModified Time celecoxib 200 mg capsule TAKE 1 CAPSULE BY MOUTH DAILY FOR PAIN active Not Available Not Available No t Available amoxicillin 500 mg capsule TAKE 1 CAPSULE BY MOUTH 3 TIMES DAILY FOR 10 DAYS 10/01 completed Not Available Not Available Not Available promethazin e-DM 6.25 mg-15 mg/5 mL oral syrup TAKE 5 MLS BY MOUTH EVERY 6 HOURS NEEDED FOR COUGH active Not Available Not Available No t Available nystatin 100,000 unit/mL oral suspension ADMINISTE R 1/2 OF DOSE (2.5 MLS) IN EACH SIDE OF THE MOUTH THREE TIMES A DAY 10/01 completed Not Available Not Available Not Available doxycycline hyclate 100 mg capsule TAKE 1 CAPSULE BY MOUTH TWICE DAILY. 10/01 completed Not Available Not Available Not Available azithromyci n 250 mg tablet TAKE 2 TABLETS BY MOUTH TODAY THEN 1 TABLET BY MOUTH ONCE A DAY FOR 4 DAYS active Not Available Not Available No t Available metoprolol succinate ER 50 mg tablet,exte nded release 24 hr TAKE 1 TABLET BY MOUTH ONCE DAILY. active Not Available Not Available No t Available hydrocodone 5 mg-acetamin ophen 325 mg tablet TAKE 1 TABLET BY MOUTH EVERY 6 HOURS NEEDED FOR PAIN 10/01 completed Not Available Not Available Not Available prednisone 20 mg tablet TAKE 1 TABLET BY MOUTH 2 TIMES DAILY FOR 5 DAYS THEN 1 TABLET ONCE DAILY FOR 5 DAYS 10/01 completed Not Available Not Available Not Available amlodipine 5 mg tablet TAKE 1 TABLET BY MOUTH ONCE DAILY FOR HYPERTENS ION. 10/01 completed Not Available Not Available Not Available omeprazole 40 mg capsule,del ayed release TAKE 1 CAPSULE BY MOUTH ONCE DAILY. 10/01 completed Not Available Not Available Not Available triamcinolo ne acetonide 0.1 % topical cream APPLY A SMALL AMOUNT TO AFFECTED AREA TWICE A DAY NEEDED active Not Available Not Available No t Available spironolact one 25 mg tablet TAKE 1 TABLET BY MOUTH TWICE DAILY 10/01 completed Not Available Not Available Not Available famotidine 20 mg tablet TAKE 1 TABLET BY MOUTH TWICE DAILY FOR 30 DAYS. active Not Available Not Available No t Available amlodipine 10 mg tablet TAKE 1 TABLET BY MOUTH ONCE DAILY active Not Available Not Available No t Available benzonatate 100 mg capsule TAKE 1 CAPSULE BY MOUTH 3 TIMES DAILY NEEDED FOR COUGH 10/01 completed Not Available Not Available Not Available telmisartan 40 mg tablet TAKE 1 TABLET BY MOUTH ONCE DAILY. active Not Available Not Available No t Available telmisartan 80 mg tablet TAKE 1 TABLET BY MOUTH DAILY active Not Available Not Available No t Available Advair Diskus 500 mcg-50 mcg/dose powder for inhalation USE 1 PUFF INTO THE LUNGS 2 TIMES DAILY active Not Available Not Available No t Available montelukast 10 mg tablet TAKE 1 TABLET BY MOUTH EVERY EVENING. active Not Available Not Available No t Available allopurinol 300 mg tablet TAKE 1 TABLET BY MOUTH ONCE DAILY FOR ARTHRITIS . active Not Available Not Available No t Available hydrochloro thiazide 25 mg tablet TAKE 1 TABLET BY MOUTH DAILY active Not Available Not Available No t Available metoprolol succinate ER 25 mg tablet,exte nded release 24 hr TAKE 1 TABLET BY MOUTH ONCE DAILY. active Not Available Not Available No t Available levofloxaci n 500 mg tablet TAKE 1 TABLET BY MOUTH ONCE DAILY. active Not Available Not Available No t Available methylpredn isolone 4 mg tablets in a dose pack TAKE 6 TABLETS ON DAY 1,THEN 5 TABS ON DAY 2,THEN 4 TABS ON DAY 3, 3 TABS ON DAY 4,THEN 2 TABS ON DAY 5 AND 1 TAB ON DAY 6. *TAKE WITH FOOD* active Not Available Not Available No t Available cefdinir 300 mg capsule TAKE 1 CAPSULE BY MOUTH TWICE DAILY active Not Available Not Available No t Available losartan 100 mg tablet TAKE 1 TABLET BY MOUTH DAILY FOR HIGH BLOOD PRESSURE active Not Available Not Available No t Available fluticasone propionate 50 mcg/actuati on nasal spray,suspe nsion PLACE 1 TO 2 SPRAYS IN EACH NOSTRIL ONCE DAILY. active Not Available Not Available No t Available doxycycline hyclate 100 mg tablet TAKE 1 TABLET BY MOUTH TWICE DAILY. active Not Available Not Available No t Available irbesartan 300 mg tablet TAKE 1 TABLET BY MOUTH ONCE DAILY active Not Available Not Available No t Available amoxicillin 875 mg-potassiu m clavulanate 125 mg tablet TAKE 1 TABLET BY MOUTH EVERY 12 HOURS active Not Available Not Available No t Available oxycodone 5 mg tablet TAKE 1 TABLET BY MOUTH EVERY 4 HOURS NEEDED FOR MAJOR SURGERY/T RAUMA. active Not Available Not Available No t Available levalbutero l HFA 45 mcg/actuati on aerosol inhaler USE 2 PUFFS EVERY 6 HOURS NEEDED FOR SHORTNESS OF BREATH OR WHEEZING active Not Available Not Available No t Available famotidine 10/01 completed Not Available Not Available Not Available hydrochloro thiazide 10/01 completed Not Available Not Available Not Available amlodipine 10/01 completed Not Available Not Available Not Available montelukast 10/01 completed Not Available Not Available Not Available losartan 10/01 completed Not Available Not Available Not Available Celebrex active Not Available Not Avai lable Not Available hydrochloro thiazide 12.5 mg tablet TAKE 1 TABLET BY MOUTH ONCE DAILY active Not Available Not Available No t Available levocetiriz ine 5 mg tablet TAKE 1 TABLET BY MOUTH ONCE DAILY. active Not Available Not Available No t Available levocetiriz ine 10/01 completed Not Available Not Available Not Available olopatadine 0.6 % nasal spray USE 2 SPRAYS IN EACH NOSTRIL NIGHTLY AT BEDTIME active Not Available Not Available No t Available Spiriva Respimat 2.5 mcg/actuati on solution for inhalation INHALE 2 PUFFS INTO THE LUNGS ONCE DAILY. active Not Available Not Available No t Available Xhance 93 mcg/actuati on breath activated aerosol USE 1 SPRAY IN EACH NOSTRIL TWICE DAILY DIRECTED active Not Available Not Available No t Available Nucala 100 mg/mL subcutaneou s auto-inject or active Not Available Not Available Not Available BinaxNOW COVID-19 Ag Self Test kit USE DIRECTED PER PACKAGE INSTRUCTI ONS 10/01 completed Not Available Not Available Not Available Wegovy 2.4 mg/0.75 mL subcutaneou s pen injector INJECT 2.4 MG UNDER THE SKIN ONCE WEEKLY. active Not Available Not Available No t Available Wegovy 1.7 mg/0.75 mL subcutaneou s pen injector INJECT 1.7 MG UNDER THE SKIN WEEKLY ON WEEKS 13 THROUGH 16 OF THERAPY active Not Available Not Available No t Available Wegovy 1 mg/0.5 mL subcutaneou s pen injector INJECT 0.5 ML SUBCUTANE OUSLY ONCE WEEKLY. 10/01 completed Not Available Not Available Not Available Wegovy 0.5 mg/0.5 mL subcutaneou s pen injector INJECT 0.5 MG SUBCUTANE OUSLY ONCE WEEKLY. ADMINISTE R WEEKS 5 THROUGH 8 OF THERAPY. 10/01 completed Not Available Not Available Not Available Vitals Date Recorded Body height Body mass index (BMI) Body weight Oxygen saturation Oxygen saturation in Arterial blood by Pulse oximetry Heart rate Systolic blood pressure Diastolic blood pressure Provider Name and Address Organization Details Last Updated DateTime 3 172.72 cm 50.2 kg/m2 684250. 48 g 97 % 97 % 70 /min 150 mm[Hg] 91 mm[Hg] Becka MARTINO [facility] & [place] 3 11:06:10 Date Recorded Body height Body mass index (BMI) Body weight Body temperature Heart rate Heart rate Oxygen saturation Oxygen saturation in Arterial blood by Pulse oximetry Systolic blood pressure Diastolic blood pressure Provider Name and Address Organization Details Last Updated DateTime 3 172.72 cm 50.3 kg/m2 266615. 28 g 97.7 [degF] 63 /min 63 /min 98 % 98 % 138 mm[Hg] 74 mm[Hg] Erika Myers [facility] & [place] 11:15:13 Date Recorded Body weight Provider Name an d Address Organization Details Last Updated DateTime 04/02/2022 404602.26 g Sol Lora [facility] [place] 04/02/2022 10:35:09 Social History Question Answer Notes LastModified by Organizat ion Details LastModified Time Tobacco Smoking Status Never Smoker Becka gauthier, [facility] [place] 10/01/2022 11:05:21 What Is Your Level Of Alcohol Consumption? Occasional Information not available 10/01/2022 What Is Your Level Of Caffeine Consumption? Occasional Information not available 10/01/2022 Do You Use Any Illicit Or Recreational Drugs? No Information not available 10/01/2022 Sex: Male Functional Status None recorded. Mental Status None recorded. Family History Nothing Reported. Medical History No medical history recorded. Past Encounters Encounter ID Performer Location Encounter Start Date Encounter Closed Date Diagnosis/Indication Diagnosis SNOMED-CT Code Diagnosis ICD10 Code Diagnosis Note [id number] Efrain Duong MD [facility] [address] [address] 04/02/2022 10:25:37 04/02/2022 10:53:56 Liver enzymes level above reference range 453205653 R74.01 Non-alcoho lic fatty liver 643865699 K76.0 Nonalcohol ic steatohepatitis 522857620 K75.81 [id number] Efrain Duong MD [facility] [address] [address] 10/01/2022 10:56:27 10/01/2022 11:14:18 Liver enzymes level above reference range 213963793 R74.01 [id number] Efrain Duong MD [facility] [address] [address] 04/01/2023 10:17:39 04/01/2023 11:41:02 Liver enzymes level above reference range 415046123 R74.01 Health Concerns Section Related Observation LastModified by Organization Detai ls LastModified Time None Recorded Concern Status LastModified by Organization Details LastModified Time None Recorded Advance Directives Directive None Recorded Payers Encounter Date Sequence Insurance Name Policy Number Policy Cantrell Covered Member ID Cantrell Member ID Guarantor Name 04/02/2022 1 [place] [employer] [place] [id number] Keyon Bell [id number] Keyon Bell 10/01/2022 1 [place] [id number] Keyon Bell [id number] Keyon Bell 04/01/2023 1 [place] [id number] Keyon Bell [id number] Keyon Bell Notes Date Note Type Note Provider Name and Address Organization Details Recorded Time 04/02/2022 text/html PREVIOUS: Mr. Bell is a 51-year-old male who presents for follow up of elevated liver enzymes. He was referred by Dr. Kenny Edwards. He states that his liver enzymes have been elevated for the past several months. He also states that he previously had a liver ultrasound that showed fatty infiltration of the liver 4-5 years ago. Patient has no drug use. He uses very little alcohol. He has no family history of liver disease. CURRENT: Mr. Bell is doing well. His weight is stable. He has not been exercising. He has had some difficulty with worsening asthma since suffering from COVID-19 Efrain Duong MD [address] [facility], [place], [address], [place] - [facility] [place] & [place] 04/02/2022 11:05:16 10/01/2022 text/html PREVIOUS: Mr. Bell is a 51-year-old male who presents for follow-up of of elevated liver enzymes. He was referred by Dr. Kenny Edwards. He states that his liver enzymes have been elevated for the past several months. He also states that he previously had a liver ultrasound that showed fatty infiltration of the liver 4-5 years ago. Patient has no drug use. He uses very little alcohol. He has no family history of liver disease. CURRENT: Mr. Bell returns today for follow up. S he is doing well. He has been on weight loss therapy with Wegovy. He is lost 25+ lb. He is exercising with swimming and gardening. Efrain Duong MD [address], [place], [address], [facility] & [place] 10/01/2022 12:12:13 04/01/2023 text/html PREVIOUS: Mr. Bell is a 51-year-old male who presents for follow-up of of elevated liver enzymes. He was referred by Dr. Kenny Edwards. He states that his liver enzymes have been elevated for the past several months. He also states that he previously had a liver ultrasound that showed fatty infiltration of the liver 4-5 years ago. Patient has no drug use. He uses very little alcohol. He has no family history of liver disease.PREVIOUS 10/01/22): Mr. Bell returns today for follow up. He is doing well. He has been on weight loss therapy with Wegovy. He is lost 25+ lb. He is exercising with swimming and gardening. CURRENT: Mr. Bell returns for follow up. He is doing okay. His insurance Instituted some specific roles for supplying Wegovy. He did not agree to the roles in his no longer on therapy. His exercise is decreased as well due to upper respiratory symptoms. His weight has increased from 312-330 lb Efrain Duong MD [address], [place], [address], [facility] & [place] 04/01/2023 12:41:32
--- OUTSIDE RECORDS SUMMARY | 2024-08-21 13:01 | XMS_ITS ---
Author Organization Unknown Medications Medication Instructions Effective Dates (start - stop) Status 60 ACTUAT tiotropium 0.0025 MG/ACTUAT Inhalation [place] [Spiriva] 5229-92-28Y10:00: 00.000+00 :00 - Completed 60 ACTUAT tiotropium 0.0025 MG/ACTUAT Inhalation [place] [Spiriva] 1630-82-54Z31:00: 00.000+00 :00 - Completed 60 ACTUAT tiotropium 0.0025 MG/ACTUAT Inhalation [place] [Spiriva] 4937-82-82J45:00: 00.000+00 :00 - Completed 60 ACTUAT tiotropium 0.0025 MG/ACTUAT Inhalation [place] [Spiriva] 1752-78-94T96:00: 00.000+00 :00 - Completed allopurinol 300 MG Oral Tablet 2 997-84-49W39:00:00.000+00 :00 - Completed 200 ACTUAT levalbuterol 0.04 5 MG/ACTUAT Metered Dose Inhaler 5100-63-91R51:00:00.000 +00 :00 - Completed allopurinol 300 MG Oral Tablet 2 150-85-86D93:00:00.000+00 :00 - Completed 1 ML mepolizumab 100 MG/ML Auto-Injector [Nucala] 2720-58-40H56:00:00.000+00 :00 - Completed 200 ACTUAT levalbuterol 0.04 5 MG/ACTUAT Metered Dose Inhaler 4455-99-17Q45:00:00.000 +00 :00 - Completed 200 ACTUAT levalbuterol 0.04 5 MG/ACTUAT Metered Dose Inhaler 4183-70-86T97:00:00.000 +00 :00 - Completed 60 ACTUAT tiotropium 0.0025 MG/ACTUAT Inhalation [place] [Spiriva] 9685-60-04J45:00: 00.000+00 :00 - Completed 200 ACTUAT levalbuterol 0.04 5 MG/ACTUAT Metered Dose Inhaler 0451-46-07U04:00:00.000 +00 :00 - Completed allopurinol 300 MG Oral Tablet 2 613-26-97P82:00:00.000+00 :00 - Completed 60 ACTUAT tiotropium 0.0025 MG/ACTUAT Inhalation [place] [Spiriva] 5309-17-91W48:00: 00.000+00 :00 - Completed 200 ACTUAT levalbuterol 0.04 5 MG/ACTUAT Metered Dose Inhaler 8905-89-16T58:00:00.000 +00 :00 - Completed 1 ML mepolizumab 100 MG/ML Auto-Injector [Nucala] 4591-22-75H67:00:00.000+00 :00 - Completed 60 ACTUAT tiotropium 0.0025 MG/ACTUAT Inhalation [place] [Spiriva] 5157-32-29F09:00: 00.000+00 :00 - Completed 1 ML mepolizumab 100 MG/ML Auto-Injector [Nucala] 2351-70-12R33:00:00.000+00 :00 - Completed 1 ML mepolizumab 100 MG/ML Auto-Injector [Nucala] 2859-16-36S77:00:00.000+00 :00 - Completed allopurinol 300 MG Oral Tablet 2 542-74-05D10:00:00.000+00 :00 - Completed 1 ML mepolizumab 100 MG/ML Auto-Injector [Nucala] 9459-32-84N31:00:00.000+00 :00 - Completed 60 ACTUAT tiotropium 0.0025 MG/ACTUAT Inhalation Mil[place] [Spiriva] 6118-59-37V28:00: 00.000+00 :00 - Completed 60 ACTUAT tiotropium 0.0025 MG/ACTUAT Inhalation [place] [Spiriva] 8085-34-69K77:00: 00.000+00 :00 - Completed 1 ML mepolizumab 100 MG/ML Auto-Injector [Nucala] 1601-29-83S03:00:00.000+00 :00 - Completed 200 ACTUAT levalbuterol 0.04 5 MG/ACTUAT Metered Dose Inhaler 4904-83-29Q70:00:00.000 +00 :00 - Completed 60 ACTUAT tiotropium 0.0025 MG/ACTUAT Inhalation [place] [Spiriva] 5150-39-73F45:00: 00.000+00 :00 - Completed 1 ML mepolizumab 100 MG/ML Auto-Injector [Nucala] 4433-49-38O98:00:00.000+00 :00 - Completed 1 ML mepolizumab 100 MG/ML Auto-Injector [Nucala] 6192-56-60R63:00:00.000+00 :00 - Completed 60 ACTUAT tiotropium 0.0025 MG/ACTUAT Inhalation [place] [Spiriva] 9368-94-52B64:00: 00.000+00 :00 - Completed 200 ACTUAT levalbuterol 0.04 5 MG/ACTUAT Metered Dose Inhaler 1612-19-22S99:00:00.000 +00 :00 - Completed 1 ML mepolizumab 100 MG/ML Auto-Injector [Nucala] 8892-35-31G58:00:00.000+00 :00 - Completed 1 ML mepolizumab 100 MG/ML Auto-Injector [Nucala] 8615-54-03X95:00:00.000+00 :00 - Completed 1 ML mepolizumab 100 MG/ML Auto-Injector [Nucala] 9880-90-97F94:00:00.000+00 :00 - Completed 1 ML mepolizumab 100 MG/ML Auto-Injector [Nucala] 8098-80-42L32:00:00.000+00 :00 - Completed 1 ML mepolizumab 100 MG/ML Auto-Injector [Nucala] 5965-58-70B84:00:00.000+00 :00 - Completed hydrochlorothiazide 12.5 MG Oral Tablet 2361-11-57V29:00:00.000+00 :00 - Completed 0.5 ML semaglutide 1 MG/ML Auto-Injector [Wegovy] 4156-15-95I61:00:00.000+00 :00 - Completed 0.75 ML semaglutide 2.27 MG/ ML Auto-Injector [Spotivatevy] 5338-56-36P95:00:00.000+00 :00 - Completed 0.5 ML semaglutide 2 MG/ML Auto-Injector [[employer]] 1754-24-25Y91:00:00.000+00 :00 - Completed hydrochlorothiazide 25 MG Or al Tablet 0739-94-52W45:00:00.000+00 :00 - Completed 0.75 ML semaglutide 2.27 MG/ ML Auto-Injector [[employer]] 8406-12-82H72:00:00.000+00 :00 - Completed doxycycline hyclate 100 MG O ral Tablet 1454-22-95C09:00:00.000+00 :00 - Completed hydrochlorothiazide 25 MG Or al Tablet 8850-82-34H73:00:00.000+00 :00 - Completed 0.75 ML semaglutide 2.27 MG/ ML Auto-Injector [[employer]] 9601-58-54O30:00:00.000+00 :00 - Completed levocetirizine dihydrochlori de 5 MG Oral Tablet 4530-56-06K08:00:00.000+00 :00 - Completed {21 (methylprednisolone 4 MG Oral Tablet) } Pack 2868-05-23R27:00:00.000+00 :00 - Completed 24 HR metoprolol succinate 2 5 MG Extended Release Oral Tablet 4775-62-34B30:00:00.000+0 0 :00 - Completed 24 HR metoprolol succinate 2 5 MG Extended Release Oral Tablet 7482-28-28N14:00:00.000+0 0 :00 - Completed famotidine 20 MG Oral Tablet 07-03-09:00:00.000+00 :00 - Completed montelukast 10 MG Oral Tablet 21-09-29:00:00.000+00 :00 - Completed levocetirizine dihydrochlori de 5 MG Oral Tablet 0650-52-52M10:00:00.000+00 :00 - Completed omeprazole 40 MG Delayed Rel ease Oral Capsule 0017-26-56F56:00:00.000+00 :00 - Completed montelukast 10 MG Oral Tablet 20 22-07-14:00:00.000+00 :00 - Completed famotidine 20 MG Oral Tablet 07-01-00:00:00.000+00 :00 - Completed famotidine 20 MG Oral Tablet 06-10-06:00:00.000+00 :00 - Completed famotidine 20 MG Oral Tablet 07-02-27:00:00.000+00 :00 - Completed famotidine 20 MG Oral Tablet 06-12-03:00:00.000+00 :00 - Completed levocetirizine dihydrochlori de 5 MG Oral Tablet 7345-07-66V82:00:00.000+00 :00 - Completed famotidine 20 MG Oral Tablet 06-13-04:00:00.000+00 :00 - Completed montelukast 10 MG Oral Tablet 24-06-19:00:00.000+00 :00 - Completed levocetirizine dihydrochlori de 5 MG Oral Tablet 5782-08-89U91:00:00.000+00 :00 - Completed 24 HR metoprolol succinate 5 0 MG Extended Release Oral Tablet 6078-85-14X71:00:00.000+0 0 :00 - Completed levocetirizine dihydrochlori de 5 MG Oral Tablet 9129-34-41L50:00:00.000+00 :00 - Completed cefdinir 300 MG Oral Capsule 07-01-14:00:00.000+00 :00 - Completed famotidine 20 MG Oral Tablet 07-01-03:00:00.000+00 :00 - Completed levocetirizine dihydrochlori de 5 MG Oral Tablet 1369-46-12I15:00:00.000+00 :00 - Completed cefdinir 300 MG Oral Capsule 07-06-18:00:00.000+00 :00 - Completed famotidine 20 MG Oral Tablet 06-11-04:00:00.000+00 :00 - Completed omeprazole 40 MG Delayed Rel ease Oral Capsule 0150-42-65O03:00:00.000+00 :00 - Completed famotidine 20 MG Oral Tablet 07-05-03:00:00.000+00 :00 - Completed montelukast 10 MG Oral Tablet 20-02-19:00:00.000+00 :00 - Completed montelukast 10 MG Oral Tablet 21-11-27:00:00.000+00 :00 - Completed levocetirizine dihydrochlori de 5 MG Oral Tablet 1508-46-25D68:00:00.000+00 :00 - Completed famotidine 20 MG Oral Tablet 07-04-29:00:00.000+00 :00 - Completed montelukast 10 MG Oral Tablet 24-05-26:00:00.000+00 :00 - Completed fluticasone propionate 0.05 MG/ACTUAT Metered Dose Nasal [place] 5458-91-06J53:00:00 .000+00 :00 - Completed celecoxib 200 MG Oral Capsule 21-12-28:00:00.000+00 :00 - Completed olopatadine hydrochloride 0. 665 MG/ACTUAT Metered Dose Nasal [place] 0961-80-55C38:00:00 .000+00 :00 - Completed fluticasone propionate 0.05 MG/ACTUAT Metered Dose Nasal [place] 8864-08-08F12:00:00 .000+00 :00 - Completed olopatadine hydrochloride 0. 665 MG/ACTUAT Metered Dose Nasal [place] 4338-69-61K58:00:00 .000+00 :00 - Completed fluticasone propionate 0.05 MG/ACTUAT Metered Dose Nasal [place] 3581-30-70I80:00:00 .000+00 :00 - Completed triamcinolone acetonide 1 MG /ML Topical Cream 1551-81-57L75:00:00.000+00 :00 - Completed amlodipine 10 MG Oral Tablet 06-30-10:00:00.000+00 :00 - Completed amlodipine 5 MG Oral Tablet 2021:00:00.000+00 :00 - Completed triamcinolone acetonide 1 MG /ML Topical Cream 8110-85-07O72:00:00.000+00 :00 - Completed {6 (azithromycin 250 MG Oral Tablet) } Pack 2890-44-31L90:00:00.000+00 :00 - Completed {6 (azithromycin 250 MG Oral Tablet) } Pack 8274-18-26X58:00:00.000+00 :00 - Completed fluticasone propionate 0.05 MG/ACTUAT Metered Dose Nasal [place] 9099-92-12C47:00:00 .000+00 :00 - Completed nystatin 300317 UNT/ML Oral Suspension 0107-55-58S96:00:00.000+00 :00 - Completed amlodipine 10 MG Oral Tablet 202 07-03-09:00:00.000+00 :00 - Completed amlodipine 10 MG Oral Tablet 07-06-13:00:00.000+00 :00 - Completed celecoxib 200 MG Oral Capsule 21-09-14:00:00.000+00 :00 - Completed losartan potassium 100 MG Or al Tablet 2981-66-64C48:00:00.000+00 :00 - Completed telmisartan 80 MG Oral Tablet 21-11-18:00:00.000+00 :00 - Completed losartan potassium 100 MG Or al Tablet 7514-14-37T57:00:00.000+00 :00 - Completed celecoxib 200 MG Oral Capsule 24-06-13:00:00.000+00 :00 - Completed fluticasone propionate 0.05 MG/ACTUAT Metered Dose Nasal [place] 3238-13-67I59:00:00 .000+00 :00 - Completed fluticasone propionate 0.05 MG/ACTUAT Metered Dose Nasal [place] 7878-05-86R48:00:00 .000+00 :00 - Completed fluticasone propionate 0.05 MG/ACTUAT Metered Dose Nasal [place] 3985-01-09M78:00:00 .000+00 :00 - Completed olopatadine hydrochloride 0. 665 MG/ACTUAT Metered Dose Nasal [place] 8506-52-50H19:00:00 .000+00 :00 - Completed telmisartan 40 MG Oral Tablet 22-10-21:00:00.000+00 :00 - Completed losartan potassium 100 MG Or al Tablet 8873-24-42P92:00:00.000+00 :00 - Completed amlodipine 5 MG Oral Tablet 2021:00:00.000+00 :00 - Completed celecoxib 200 MG Oral Capsule 23-03-09:00:00.000+00 :00 - Completed spironolactone 25 MG Oral Tablet 6213-66-77P04:00:00.000+00 :00 - Completed amoxicillin 500 MG Oral Capsule 7516-26-69L99:00:00.000+00 :00 - Completed - 9435-06-10R24:00 :00.000+00 :00 - Completed levocetirizine dihydrochlori de 5 MG Oral Tablet 3333-86-57D90:00:00.000+00 :00 - Completed irbesartan 300 MG Oral Tablet 22-10-06:00:00.000+00 :00 - Completed hydrochlorothiazide 25 MG Or al Tablet 9618-64-54H34:00:00.000+00 :00 - Completed prednisone 20 MG Oral Tablet 07-01-14:00:00.000+00 :00 - Completed benzonatate 100 MG Oral Capsule 5175-83-81U03:00:00.000+00 :00 - Completed hydrochlorothiazide 25 MG Or al Tablet 5238-22-10A90:00:00.000+00 :00 - Completed levocetirizine dihydrochlori de 5 MG Oral Tablet 6357-68-25U45:00:00.000+00 :00 - Completed 0.5 ML varicella zoster viru s glycoprotein E, recombinant 0.1 MG/ML Injection [Shingrix] 2851-70-60D03:00:00.000+00 :00 - Completed hydrochlorothiazide 25 MG Or al Tablet 3594-21-81J77:00:00.000+00 :00 - Completed hydrochlorothiazide 25 MG Or al Tablet 6888-47-88Z54:00:00.000+00 :00 - Completed - 4414-81-47T58:00 :00.000+00 :00 - Completed triamcinolone acetonide 1 MG /ML Topical Cream 3171-49-70D62:00:00.000+00 :00 - Completed hydrochlorothiazide 25 MG Or al Tablet 2743-64-13Q72:00:00.000+00 :00 - Completed hydrochlorothiazide 25 MG Or al Tablet 5050-10-34M52:00:00.000+00 :00 - Completed levocetirizine dihydrochlori de 5 MG Oral Tablet 8919-28-80E06:00:00.000+00 :00 - Completed prednisone 20 MG Oral Tablet 06-13-10:00:00.000+00 :00 - Completed levocetirizine dihydrochlori de 5 MG Oral Tablet 0354-75-74H29:00:00.000+00 :00 - Completed 0.5 ML varicella zoster viru s glycoprotein E, recombinant 0.1 MG/ML Injection [Shingrix] 0922-50-70B91:00:00.000+00 :00 - Completed hydrochlorothiazide 25 MG Or al Tablet 0600-69-46Y34:00:00.000+00 :00 - Completed 60 ACTUAT fluticasone propio lorraine 0.5 MG/ACTUAT / salmeterol 0.05 MG/ACTUAT Dry Powder Inhaler [Advair] 4999-81-32E46:00:00.000+00 :00 - Completed 60 ACTUAT fluticasone propio lorraine 0.5 MG/ACTUAT / salmeterol 0.05 MG/ACTUAT Dry Powder Inhaler [Advair] 5156-30-47K06:00:00.000+00 :00 - Completed dextromethorphan hydrobromid e 3 MG/ML / promethazine hydrochloride 1.25 MG/ML Oral Solution 1398-43-66H90:00:00.000+00 :00 - Completed 60 ACTUAT fluticasone propio lorraine 0.5 MG/ACTUAT / salmeterol 0.05 MG/ACTUAT Dry Powder Inhaler [Advair] 6610-40-09O20:00:00.000+00 :00 - Completed 60 ACTUAT fluticasone propio lorraine 0.5 MG/ACTUAT / salmeterol 0.05 MG/ACTUAT Dry Powder Inhaler [Advair] 6335-57-13W78:00:00.000+00 :00 - Completed 60 ACTUAT fluticasone propio lorraine 0.5 MG/ACTUAT / salmeterol 0.05 MG/ACTUAT Dry Powder Inhaler [Advair] 1507-95-39C07:00:00.000+00 :00 - Completed acetaminophen 325 MG / hydro codone bitartrate 5 MG Oral Tablet 7982-12-12I25:00:00.000+00 :00 - Completed 60 ACTUAT fluticasone propio lorraine 0.5 MG/ACTUAT / salmeterol 0.05 MG/ACTUAT Dry Powder Inhaler [Advair] 1311-06-61A18:00:00.000+00 :00 - Completed 0.5 ML Streptococcus pneumon iae serotype 1 capsular antigen diphtheria [id number] protein conjugate vaccine 0.0044 MG/ML / Streptococcus pneumoniae serotype 10A capsular antigen diphtheria [id number] protein conjugate vaccine 0.0044 MG/ML / Streptococcus pneumoniae serotype 11A capsular antigen diphtheria [id number] protein conjugate vaccine 0.0044 MG/ML / Streptococcus pneumoniae serotype 12F capsular antigen diphtheria WXR026 protein conjugate vaccine 0.0044 MG/ML / Streptococcus pneumoniae serotype 14 capsular antigen diphtheria RTV091 protein conjugate vaccine 0.0044 MG/ML / Streptococcus pneumoniae serotype 15B capsular antigen diphtheria WTM091 protein conjugate vaccine 0.0044 MG/ML / Streptococcus pneumoniae serotype 18C capsular antigen diphtheria [id number] protein conjugate vaccine 0.0044 MG/ML / Streptococcus pneumoniae serotype 19A capsular antigen diphtheria [id number] protein conjugate vaccine 0.0044 MG/ML / Streptococcus pneumoniae serotype 19F capsular antigen diphtheria BHI659 protein conjugate vaccine 0.0044 MG/ML / Streptococcus pneumoniae serotype 22F capsular antigen diphtheria IWZ154 protein conjugate vaccine 0.0044 MG/ML / Streptococcus pneumoniae serotype 23F capsular antigen diphtheria KMY155 protein conjugate vaccine 0.0044 MG/ML / Streptococcus pneumoniae serotype 3 capsular antigen diphtheria OTW380 protein conjugate vaccine 0.0044 MG/ML / Streptococcus pneumoniae serotype 33F capsular antigen diphtheria FNQ179 protein conjugate vaccine 0.0044 MG/ML / Streptococcus pneumoniae serotype 4 capsular antigen diphtheria LVX546 protein conjugate vaccine 0.0044 MG/ML / Streptococcus pneumoniae serotype 5 capsular antigen diphtheria AJC592 protein conjugate vaccine 0.0044 MG/ML / Streptococcus pneumoniae serotype 6A capsular antigen diphtheria JVW324 protein conjugate vaccine 0.0044 MG/ML / Streptococcus pneumoniae serotype 6B capsular antigen diphtheria CCQ859 protein conjugate vaccine 0.0088 MG/ML / Streptococcus pneumoniae serotype 7F capsular antigen diphtheria ISY196 protein conjugate vaccine 0.0044 MG/ML / Streptococcus pneumoniae serotype 8 capsular antigen diphtheria QSF108 protein conjugate vaccine 0.0044 MG/ML / Streptococcus pneumoniae serotype 9V capsular antigen diphtheria [id number] protein conjugate vaccine 0.0044 MG/ML Prefilled Syringe [Prevnar 20] 8612-10-25R05:00:00.000 +00 :00 - Completed 60 ACTUAT fluticasone propio lorraine 0.5 MG/ACTUAT / salmeterol 0.05 MG/ACTUAT Dry Powder Inhaler [Advair] 2221-04-97S31:00:00.000+00 :00 - Completed 60 ACTUAT fluticasone propio lorraine 0.5 MG/ACTUAT / salmeterol 0.05 MG/ACTUAT Dry Powder Inhaler [Advair] 9151-25-12G87:00:00.000+00 :00 - Completed 60 ACTUAT fluticasone propio lorraine 0.5 MG/ACTUAT / salmeterol 0.05 MG/ACTUAT Dry Powder Inhaler [Advair] 3000-90-99F65:00:00.000+00 :00 - Completed 60 ACTUAT fluticasone propio lorraine 0.5 MG/ACTUAT / salmeterol 0.05 MG/ACTUAT Dry Powder Inhaler [Advair] 2922-96-24K13:00:00.000+00 :00 - Completed 60 ACTUAT fluticasone propio lorraine 0.5 MG/ACTUAT / salmeterol 0.05 MG/ACTUAT Dry Powder Inhaler [Advair] 7375-36-22J62:00:00.000+00 :00 - Completed Patient Care team information Name Category Status Period Participants - - Proposed period not known -
[2024-08-23 10:55] LABS: HIV Combo NEGATIVE (Negative)
== END 2024-08-20 23:59 | disposition home or self-care (01) ==
LOC: LAB.DROPOF 08-21 12:59
PROVIDERS: PCP Nurse Practitioner; Visit Provider Nurse Practitioner
DX: I10 Essential (primary) hypertension (principal); Z13.0 Encounter for screening for diseases of the blood and blood-forming organs and certain disorders involving the immune mechanism
CPT/HCPCS: 80053; 82043; 82570; 86803; 87389

== ENCOUNTER 2024-11-22 11:58 | Outpatient (CLI) | payer BC, SELFPAY ==
[2024-11-22 19:12] LABS: Hematocrit 40.3 % (42.0-52.0); Hemoglobin 13.7 g/dL (14.1-18.0); Immature Granulocytes % 0.3 %; Mean Corpuscular HGB Conc 34.0 g/dL (31.8-35.4); Mean Corpuscular Hemoglobin 29.3 pg (27.0-31.2); Mean Corpuscular Volume 86.3 fl (80-94); Nucleated Red Blood Cells % 0 %; Platelet Count 264 K/mm3 (142-424); Red Blood Count 4.67 M/mm3 (4.60-6.20); Red Cell Distribution Width-SD 46.5 fL; White Blood Count 7.8 K/mm3 (4.8-10.8)
[2024-11-22 19:38] LABS: Alanine Aminotransferase 21 U/L (12-78); Albumin Level 4.1 g/dl (3.5-5.0); Albumin/Globulin Ratio 2.2 (1.1-1.8); Alkaline Phosphatase 90 U/L (38-126); Anion Gap 11.0 mEq/L (5-15); Aspartate Amino Transferase 30 U/L (17-59); Bilirubin,Total 0.6 mg/dl (0.2-1.3); Blood Urea Nitrogen 20 mg/dl (9-20); Calcium 9.5 mg/dl (8.4-10.2); Carbon Dioxide 25 mmol/L (22.0-30.0); Chloride 108 mmol/L (98-107); Cholesterol 142 mg/dl (140-200); Creatinine,Serum 0.70 mg/dl (0.66-1.25); Estimated Glomerular Filt Rate 118 ml/min (>60); GFR (African American) 142 ML/MIN (>60); Globulin 1.9 g/dL (1.3-3.2); Glucose 97 mg/dl (74-100); HDL Cholesterol 47 mg/dl (40-60); Potassium 4.0 mmoL/L (3.5-5.1); Sodium 140 mmol/L (136-145); Total Protein,Serum 6.0 g/dl (6.3-8.2); Triglycerides 132 mg/dl (30-150)
[2024-11-22 21:02] LABS: Vitamin B12 541 pg/mL (239-931)
--- OUTSIDE RECORDS SUMMARY | 2024-11-26 12:01 | XMS_ITS | Clinical Summary ---
Author Organization Healthcare Address [address] [place] [address] Care Team Providers Care Drapery Inspector Name Role Phone Brock Edwards MD Primary Care Provider + [phone] Family History Medical History Relation Name Comments Hypertension Father Diabetes Maternal Grandmother Diverticulitis Mother Hypertension Mother Colon cancer Paternal Grandmother Relation Name Status Comments Father Maternal Grandmother Mother Paternal Grandmother Social History Tobacco Use Types Packs/Day Years Used Date Smoking Tobacco: Never Assessed Sex and Gender Information Value Date Recorded Sex Assigned at Not on file Legal Sex Male 7:08 PM EDT Gender Identity Not on file Sexual Orientation Not on file Last Filed Vital Signs Vital Sign Reading Time Taken Comments Blood Pressure - - Pulse - - Temperature - - Respiratory Rate - - Oxygen Saturation - - Inhaled Oxygen Concentration - - Weight 132 kg (289 lb 15.9 oz) 02/13/2015 4:21 P M EDT Height 177.8 cm (5' 10 ) 02/13/2015 4:21 PM EDT Body Mass Index 41.61 02/13/2015 4:21 PM EDT Plan of Treatment Not on file Care Teams Drapery Inspector Relationship Specialty Start Date End Date Brock Edwards MD [address] [place] [address] PCP - General 09/12/20
--- OUTSIDE RECORDS SUMMARY | 2024-11-26 12:01 | XMS_ITS | Data Portability ---
Author Organization [place] - [facility] [place] [facility] [place] PRAMOD ADMIN Address [address] [place] [id number] Care Team Providers Care Special Events Assistant Name Role Phone KENNY ACUÑA Primary Care Provider Assessment Encounter Date Assessment Date Assessment LastModified [...] CMP, serum or plasma 023 04/01/20 23 [facility], [address], [place], [address], 07:12:37 CMP, serum or plasma 023 10/02/19 23 [facility] (Registration ), [address], [place], [address], 3 12:39:07 CBC 023 10/02/[address] (Registration ), [address], [place], [address], 3 07:25:32 CMP, serum or plasma 022 04/02/20 22 [facility] (Registration ), [address], [place], [address], 2 11:49:56 CBC 022 04/02/[address] (Registration ), [address], [place], [address], 2 16:09:12 PT/INR 022 04/02/[address] (Registration ), [address], [place], [address], 2 16:09:12 Referral None recorded . Procedures [...] WBC 7.4 K/uL 4.0-10 .5 Not Available [facility] ([facility]) [address], [place], [address], 04/02/2022 11:31:42 04/02/20 22 04/02/2022 CBC AUTO NO DIFF (HEMO GRAM) RBC 4.9 M/mm3 4.7-6. 1 Not Available [facility] ([facility]) [address], [place], [address], 04/02/2022 11:31:42 04/02/20 22 04/02/2022 CBC AUTO NO DIFF (HEMO GRAM) HGB 14.7 gm/dL 13.5-1 8.0 Not Available [facility] ([facility]) [address], [place], [address], 04/02/2022 11:31:42 04/02/20 22 04/02/2022 CBC AUTO NO DIFF (HEMO GRAM) HCT 44.0 % 42.0-5 2.0 Not Available [facility] ([facility]) [address], [place], [address], 04/02/2022 11:31:42 04/02/20 22 04/02/2022 CBC AUTO NO DIFF (HEMO GRAM) MCV 90.0 fL 78-100 Not Available [facility] ([facility]) [address], [place], [address], 04/02/2022 11:31:42 04/02/20 22 04/02/2022 CBC AUTO NO DIFF (HEMO GRAM) MCH 30.1 pg 27-31 Not Available [facility] ([facility]) [address], [place], [address], 04/02/2022 11:31:42 04/02/20 22 04/02/2022 CBC AUTO NO DIFF (HEMO GRAM) MCHC 33.4 g/dL 32-36 Not Available [facility] ([facility]) [address], [place], [address], 04/02/2022 11:31:42 04/02/20 22 04/02/2022 CBC AUTO NO DIFF (HEMO GRAM) RDW 14.1 % 11.5-1 4.0 high Not Available [facility] ([facility]) [address], [place], [address], 04/02/2022 11:31:42 04/02/20 22 04/02/2022 CBC AUTO NO DIFF (HEMO GRAM) platelet count 257 K/uL 150-45 0 Not Available [facility] ([facility]) [address], [place], [address], 04/02/2022 11:31:42 04/02/20 22 04/02/2022 CBC AUTO NO DIFF (HEMO GRAM) manual differential NO Not Available [facility] ([facility]) [address], [place], [address], 04/02/2022 11:31:42 04/02/20 22 04/02/2022 PT (PROT HROMB IN TIME) W INR prothrombin time 10.3 secon ds 9.3-11 .4 Not Available [facility] ([facility]) [address], [place], [address], 04/02/2022 11:47:26 04/02/20 22 04/02/2022 PT (PROT [...] Mecha nical Heart Valve s Not Available [facility] ([facility]) [address], [place], [address], 04/02/2022 11:47:26 04/02/20 22 04/02/2022 COMP METAB OLIC PANEL sodium 136 mmol/ L 136-14 5 Not Available [facility] ([facility]) [address], [place], [address], 04/02/2022 11:49:56 04/02/20 22 04/02/2022 COMP METAB OLIC PANEL potassium 3.3 mmol/ L 3.6-5. 0 low Not Available [facility] ([facility]) [address], [place], [address], 04/02/2022 11:49:56 04/02/20 22 04/02/2022 COMP METAB OLIC PANEL chloride 100 mmol/ L 98-107 Not Available [facility] ([facility]) [address] , [place], [address], 04/02/2022 11:49:56 04/02/20 22 04/02/2022 COMP METAB OLIC PANEL carbon dioxide 30.3 mmol/ L 21.0-3 2.0 Not Available [facility] ([facility]) [address] , [place], [address], 04/02/2022 11:49:56 04/02/20 22 04/02/2022 COMP METAB OLIC PANEL anion gap 9.0 Not Available [facility] ([facility]) [address] , [place], [address], 04/02/2022 11:49:56 04/02/20 22 04/02/2022 COMP METAB OLIC PANEL glucose 107 mg/dL 70-120 Not Available [facility] ([facility]) [address] , [place], [address], 04/02/2022 11:49:56 04/02/20 22 04/02/2022 COMP METAB OLIC PANEL BUN 11 mg/dL 7-18 Not Available [facility] ([facility]) [address] , [place], [address], 04/02/2022 11:49:56 04/02/20 22 04/02/2022 COMP METAB OLIC PANEL creatinine 0.8 mg/dL 0.6-1. 3 Not Available [facility] ([facility]) [address] , [place], [address], 04/02/2022 11:49:56 04/02/20 22 04/02/2022 COMP METAB OLIC PANEL glomerular filtration rate >60 mlper min 60- Not Available [facility] ([facility]) [address] , [place], [address], 04/02/2022 11:49:56 04/02/20 22 04/02/2022 COMP METAB OLIC PANEL total protein 7.3 g/dL 6.4-8. 2 Not Available [facility] ([facility]) [address] , [place], [address], 04/02/2022 11:49:56 04/02/20 22 04/02/2022 COMP METAB OLIC PANEL albumin 3.9 g/dL 3.4-5. 0 Not Available [facility] ([facility]) [address] , [place], [address], 04/02/2022 11:49:56 04/02/20 22 04/02/2022 COMP METAB OLIC PANEL globulin 3.4 Not Available [facility] ([facility]) [address] , [place], [address], 04/02/2022 11:49:56 04/02/20 22 04/02/2022 COMP METAB OLIC PANEL alb/glob ratio 1.1 0.7-2 Not Available [facility] ([facility]) [address] , [place], [address], 04/02/2022 11:49:56 04/02/20 22 04/02/2022 COMP METAB OLIC PANEL calcium 9.2 mg/dL 8.5-10 .5 Not Available [facility] ([facility]) [address] , [place], [address], 04/02/2022 11:49:56 04/02/20 22 04/02/2022 COMP METAB OLIC PANEL bilirubin total 0.81 mg/dL 0.10-1 .00 Not Available [facility] ([facility]) [address] , [place], [address], 04/02/2022 11:49:56 04/02/20 22 04/02/2022 COMP METAB OLIC PANEL AST (SGOT) 37 U/L 0-37 Not Available [facility] ([facility]) [address], [place], [address], 04/02/2022 11:49:56 04/02/20 22 04/02/2022 COMP METAB OLIC PANEL ALT (SGPT) 59 U/L 0-65 Not Available [facility] ([facility]) [address], [place], [address], 04/02/2022 11:49:56 04/02/20 22 04/02/2022 COMP METAB OLIC PANEL alk phosphatase 71 U/L 46-116 Not Available [facility] ([facility]) [address] , [place], [address], 04/02/2022 11:49:56 10/02/19 23 10/01/2022 CBC AUTO NO DIFF (HEMO GRAM) WBC 9.6 K/uL 4.0-10 .5 Not Available [facility] ([facility]) [address] , [place], [address], 10/01/2022 12:17:30 10/02/19 23 10/01/2022 CBC AUTO NO DIFF (HEMO GRAM) RBC 5.0 M/mm3 4.7-6. 1 Not Available [facility] ([facility]) [address], [place], [address], 10/01/2022 12:17:30 10/02/19 23 10/01/2022 CBC AUTO NO DIFF (HEMO GRAM) HGB 14.7 gm/dL 13.5-1 8.0 Not Available [facility] ([facility]) [address], [place], [address], 10/01/2022 12:17:30 10/02/19 23 10/01/2022 CBC AUTO NO DIFF (HEMO GRAM) HCT 44.7 % 42.0-5 2.0 Not Available [facility] ([facility]) [address], [place], [address], 10/01/2022 12:17:30 10/02/19 23 10/01/2022 CBC AUTO NO DIFF (HEMO GRAM) MCV 89.9 fL 78-100 Not Available [facility] ([facility]) [address], [place], [address], 10/01/2022 12:17:30 10/02/19 23 10/01/2022 CBC AUTO NO DIFF (HEMO GRAM) MCH 29.6 pg 27-31 Not Available [facility] ([facility]) [address] [facility], [place], [address], 10/01/2022 12:17:30 10/02/19 23 10/01/2022 CBC AUTO NO DIFF (HEMO GRAM) MCHC 32.9 g/dL 32-36 Not Available [facility] ([facility]) [address] [facility], [place], [address], 10/01/2022 12:17:30 10/02/19 23 10/01/2022 CBC AUTO NO DIFF (HEMO GRAM) RDW 14.0 % 11.5-1 4.0 Not Available [facility] ([facility]) [address] [place], [address], 10/01/2022 12:17:30 10/02/19 23 10/01/2022 CBC AUTO NO DIFF (HEMO GRAM) platelet count 308 K/uL 150-45 0 Not Available [facility] ([facility]) [address], [place], [address], 10/01/2022 12:17:30 10/02/19 23 10/01/2022 CBC AUTO NO DIFF (HEMO GRAM) manual differential NO Not Available [facility] ([facility]) [address] , [place], [address], 10/01/2022 12:17:30 10/02/19 23 10/01/2022 COMP METAB OLIC PANEL sodium 141 mmol/ L 136-14 5 Not Available [facility] ([facility]) [address] , [place], [address], 10/01/2022 12:39:07 10/02/19 23 10/01/2022 COMP METAB OLIC PANEL potassium 3.4 mmol/ L 3.6-5. 0 low Not Available [facility] ([facility]) [address] , [place], [address], 10/01/2022 12:39:07 10/02/19 23 10/01/2022 COMP METAB OLIC PANEL chloride 105 mmol/ L 98-107 Not Available [facility] ([facility]) [address] , [place], [address], 10/01/2022 12:39:07 10/02/19 23 10/01/2022 COMP METAB OLIC PANEL carbon dioxide 31.0 mmol/ L 21.0-3 2.0 Not Available [facility] ([facility]) [address] , [place], [address], 10/01/2022 12:39:07 10/02/19 23 10/01/2022 COMP METAB OLIC PANEL anion gap 8.4 Not Available [facility] ([facility]) [address] , [place], [address], 10/01/2022 12:39:07 10/02/19 23 10/01/2022 COMP METAB OLIC PANEL glucose 99 mg/dL 70-120 Not Available [facility] ([facility]) [address] , [place], [address], 10/01/2022 12:39:07 10/02/19 23 10/01/2022 COMP METAB OLIC PANEL BUN 10 mg/dL 7-18 Not Available [facility] ([facility]) [address], [place], [address], 10/01/2022 12:39:07 10/02/19 23 10/01/2022 COMP METAB OLIC PANEL creatinine 0.8 mg/dL 0.6-1. 3 Not Available [facility] ([facility]) [address], [place], [address], 10/01/2022 12:39:07 10/02/19 23 10/01/2022 COMP METAB OLIC PANEL glomerular filtration rate >60 mlper min 60- Not Available [facility] ([facility]) [address], [place], [address], 10/01/2022 12:39:07 10/02/19 23 10/01/2022 COMP METAB OLIC PANEL total protein 7.4 g/dL 6.4-8. 2 Not Available [facility] ([facility]) [address], [place], [address], 10/01/2022 12:39:07 10/02/19 23 10/01/2022 COMP METAB OLIC PANEL albumin 3.8 g/dL 3.4-5. 0 Not Available [facility] ([facility]) [address], [place], [address], 10/01/2022 12:39:07 10/02/19 23 10/01/2022 COMP METAB OLIC PANEL globulin 3.6 Not Available [facility] ([facility]) [address], [place], [address], 10/01/2022 12:39:07 10/02/19 23 10/01/2022 COMP METAB OLIC PANEL alb/glob ratio 1.1 0.7-2 Not Available [facility] ([facility]) [address], [place], [address], 10/01/2022 12:39:07 10/02/19 23 10/01/2022 COMP METAB OLIC PANEL calcium 8.8 mg/dL 8.5-10 .5 Not Available [facility] ([facility]) [address], [place], [address], 10/01/2022 12:39:07 10/02/19 23 10/01/2022 COMP METAB OLIC PANEL bilirubin total 0.50 mg/dL 0.10-1 .00 Not Available [facility] ([facility]) [address], [place], [address], 10/01/2022 12:39:07 10/02/19 23 10/01/2022 COMP METAB OLIC PANEL AST (SGOT) 25 U/L 0-37 Not Available [facility] ([facility]) [address] [facility], [place], [address], 10/01/2022 12:39:07 10/02/19 23 10/01/2022 COMP METAB OLIC PANEL ALT (SGPT) 49 U/L 0-65 Not Available [facility] ([facility]) [address] [facility], [place], [address], 10/01/2022 12:39:07 10/02/19 23 10/01/2022 COMP METAB OLIC PANEL alk phosphatase 87 U/L 46-116 Not Available [facility] ([facility]) [address] [facility], [place], [address], 10/01/2022 12:39:07 04/01/20 23 04/02/2023 COMP. METAB OLIC PANEL (14) glucose 124 mg/dL 70-99 above high normal Not Available [facility] ([facility]) [address] [facility], [place], [address], 04/02/2023 07:12:36 04/01/20 23 04/02/2023 COMP. METAB OLIC PANEL (14) BUN 14 mg/dL 6-24 Not Available [facility] ([facility]) [address] [facility] [place], [address], 04/02/2023 07:12:36 04/01/20 23 04/02/2023 COMP. METAB OLIC PANEL (14) creatinine 0.85 mg/dL 0.76-1 .27 Not Available [facility] ([facility]) [address] [facility] [place], [address], 04/02/2023 07:12:36 04/01/20 23 04/02/2023 COMP. METAB OLIC PANEL (14) eGFR 105 mL/mi n/1.7 3 >59 Not Available [facility] ([facility]) [address] [facility] [place], [address], 04/02/2023 07:12:36 04/01/20 23 04/02/2023 COMP. METAB OLIC PANEL (14) BUN/creatini ne ratio 16 9-20 Not Available [facility] ([facility]) [address] [facility] [place], [address], 04/02/2023 07:12:36 04/01/20 23 04/02/2023 COMP. METAB OLIC PANEL (14) sodium 145 mmol/ L 134-14 4 above high normal Not Available [facility] ([facility]) [address] [facility] [place], [address], 04/02/2023 07:12:36 04/01/20 23 04/02/2023 COMP. METAB OLIC PANEL (14) potassium 3.8 mmol/ L 3.5-5. 2 Not Available [facility] ([facility]) [address] [facility] [place], [address], 04/02/2023 07:12:36 04/01/20 23 04/02/2023 COMP. METAB OLIC PANEL (14) chloride 106 mmol/ L 96-106 Not Available [facility] ([facility]) [address] [facility] [place], [address], 04/02/2023 07:12:36 04/01/20 23 04/02/2023 COMP. METAB OLIC PANEL (14) carbon dioxide, total 23 mmol/ L 20-29 Not Available [facility] ([facility]) [address] [facility], [place], [address], 04/02/2023 07:12:36 04/01/20 23 04/02/2023 COMP. METAB OLIC PANEL (14) calcium 9.2 mg/dL 8.7-10 .2 Not Available [facility] ([facility]) [address] [facility], [place], [address], 04/02/2023 07:12:36 04/01/20 23 04/02/2023 COMP. METAB OLIC PANEL (14) protein, total 6.1 g/dL 6.0-8. 5 Not Available [facility] ([facility]) [address] [facility], [place], [address], 04/02/2023 07:12:36 04/01/20 23 04/02/2023 COMP. METAB OLIC PANEL (14) albumin 4.1 g/dL 3.8-4. 9 Not Available [facility] ([facility]) [address] [facility], [place], [address], 04/02/2023 07:12:36 04/01/20 23 04/02/2023 COMP. METAB OLIC PANEL (14) globulin, total 2.0 g/dL 1.5-4. 5 Not Available [facility] ([facility]) [address] [facility], [place], [address], 04/02/2023 07:12:36 04/01/20 23 04/02/2023 COMP. METAB OLIC PANEL (14) A/G ratio 2.1 1.2-2. 2 Not Available [facility] ([facility]) [address] [facility], [place], [address], 04/02/2023 07:12:36 04/01/20 23 04/02/2023 COMP. METAB OLIC PANEL (14) bilirubin, total 0.5 mg/dL 0.0-1. 2 Not Available [facility] ([facility]) [address] [facility], [place], [address], 04/02/2023 07:12:36 04/01/20 23 04/02/2023 COMP. METAB OLIC PANEL (14) alkaline phosphatase 74 IU/L 44-121 Not Available [facility] ([facility]) [address] [facility], [place], [address], 04/02/2023 07:12:36 04/01/20 23 04/02/2023 COMP. METAB OLIC PANEL (14) AST (SGOT) 33 IU/L 0-40 Not Available [facility] ([facility]) [address] [facility], [place], [address], 04/02/2023 07:12:36 04/01/20 23 04/02/2023 COMP. METAB OLIC PANEL (14) ALT (SGPT) 37 IU/L 0-44 Not Available [facility] ([facility]) [address] [facility], [place], [address], 04/02/2023 07:12:36 04/01/20 22 10/08/2021 US, liver No observ ation record ed. Efrain Duong MD [address], [place], [address], 04/02/2022 10:20:16 Result Notes None recorded. Problems Name Problem SNOMED Code Status Onset Date Resolution Date Notes Provider Name and Address Organization Details Recorded Time Sensorineur al hearing loss of bilateral ears 138302009 Active Becka Hathaway null, [place] - [facility] [place] [facility] [place] 3 11:00:36 Bilateral tinnitus 1855205006143 Active Becka Hathaway null, [place] - [facility] [place] [facility] [place] 3 11:00:36 Subjective tinnitus 30917206 Active SALENA Esposito [facility] & [place] 3 11:00:36 Liver enzymes level above reference range 622866615 Active 2021 SALENA Louis [facility] & [place] 2 10:42:25 Problem Notes None recorded. Medical Equipment None Reported. Allergies Allergen ID Allergen Name Allergen Category Reaction Reaction Severity Criticality Documentation Date Start Date Code Code System Note Provider Name and Address Organization Details Recorded Time 49029 lisinopri l medicatio n Not available Not available Not available 04/02/2022 77644 RxNorm SALENA Louis [facility] & [place] 2 10:35:16 53547 spironola ctone medicatio n muscle cramps Not available Not available 04/02/2022 9997 RxNorm SALENA Louis [facility] & [place] 2 10:35:37 Medications Name Sig Start Date [...] blood by Pulse oximetry Heart rate Systolic And Diastolic Provider Name and Address Organization Details Last Updated DateTime 3 172.72 cm 50.2 kg/m2 229502. 48 g 97 % 97 % 70 /min 150/91 mm[Hg] Becka Hathaway [place] [facility] [place] 3 11:06:10 Date Recorded Body height Body mass index (BMI) Body weight Body temperature Heart rate Heart rate Oxygen saturation Oxygen saturation in Arterial blood by Pulse oximetry Systolic And Diastolic Provider Name and Address Organization Details Last Updated DateTime 3 172.72 cm 50.3 kg/m2 365853. 28 g 97.7 [degF] 63 /min 63 /min 98 % 98 % 138/74 mm[Hg] Erika Myers [place] [facility] [place] 3 11:15:13 Date Recorded Body weight Provider Name an d Address Organization Details Last Updated DateTime 04/02/2022 577167.26 fred Lora [facility] & [place] 04/02/2022 10:35:09 Social History Question Answer Notes LastModified by Organizat ion Details LastModified Time Tobacco Smoking Status Never Smoker Becka gauthier, [facility] & [place] 10/01/2022 11:05:21 What Is Your Level Of Caffeine Consumption? Occasional Information not available 10/01/2022 Sex: Male Functional Status Question Answer Note LastModified by Organizat ion Details LastModified Time Do you use any illicit or recreational drugs? No Information not available 10/01/2022 What is your level of alcohol consumption? Occasional Information not available 10/01/2022 Mental Status None recorded. Family History Nothing Reported. Medical History No medical history recorded. Past Encounters Encounter ID Performer Location Encounter Start Date Encounter Closed Date Diagnosis/Indication Diagnosis SNOMED-CT Code Diagnosis ICD10 Code Diagnosis Note [id number] Efrain Duong MD [facility] [place] [id number] 2 04/02/2022 10:25:37 04/02/2022 10:53:56 Liver enzymes level above reference range 461476202 R74.01 Non-alcoho lic fatty liver 737324022 K76.0 Metabolic dysfunction-associate d steatohepatitis 816943480 K75.81 [id number] Efrain Duong MD [facility] [address] [address] 10/01/2022 10:56:27 10/01/2022 11:14:18 Liver enzymes level above reference range 163481690 R74.01 [id number] Efrain Duong MD [facility] [address] [address] 04/01/2023 10:17:39 04/01/2023 11:41:02 Liver enzymes level above reference range 885102782 R74.01 Health Concerns Section Related Observation LastModified by Organization Detai ls LastModified Time None Recorded Concern Status LastModified by Organization Details LastModified Time None Recorded Advance Directives Directive None Recorded Payers Insurance Date Sequence Insurance Name Policy Number Policy Cantrell Covered Member ID Cantrell Member ID Guarantor Name 10/24/2023 1 JERALD-SALENA: GERALD MARQUES [facility] [id number] [place] [id number]
--- OUTSIDE RECORDS SUMMARY | 2024-11-26 12:02 | XMS_ITS | Data Portability ---
Author Organization [facility] Address [address] [place] [address] Care Team Providers Care Pharmacy Resident Name Role Phone KENNY ACUÑA Primary Care Provider Assessment No assessment recorded. Plan of Treatment Reminders Order Date Submit Date Provider Last Modified By Organization Details Last Modified Time Details Appointments None recorded. Lab None recorded. Referral None recorded. Procedures None recorded. Surgeries None recorded. Imaging None recorded. Medication Orders famotidine 20 mg tablet 2021 [facility], [address] [place], [address], 3 12:25:40 omeprazole 40 mg capsule,del ayed release 2021 [facility] [address] [place] [place], [address], 2 10:16:39 fluconazole 100 mg tablet 2021 [facility] [address] [facility] [facility] [place], [address], 2 16:24:56 nystatin 100,000 unit/mL oral suspension 2021 [facility] [address] [place] [facility] [place], [address], 2 15:48:20 fluconazole 100 mg tablet 2021 022 [email or web address], [address] [facility], [place], [address], 2 12:11:02 nystatin 100,000 unit/mL oral suspension 2021 022 [facility], [address] [facility], [address], [place], [address], 2 15:48:30 Patient TargetsNo targets recorded. Patient Instructions Encounter Date Encounter Id Patient Instructions Last Modified By Organization Details Last Modified Time 07/01/2021 [id number] 1. Flex laryngoscopy- full risks, complications, and benefits of in-office procedure have been thoroughly discussed. Understanding was expressed, informed consent given, and we will proceed with the discussed in-office treatment plan. 2. Rinse thoroughly with salt water after using inhalers 3. Rx fluconazole 100 mg tablet x 10 days 4. Rx nystatin 100,000 unit/mL oral suspension 10 ml swish and swallow tid 5. Follow up one month [email or web address] Not available 07/01/2021 11:45:02 He has what I presume is candidiasis of his larynx and associated hoarseness. His exam today included fiberoptic exam of nasopharynx hypopharynx and larynx and findings suggest laryngeal candidiasis. He has history of asthma and respiratory problems and uses steroid containing inhalers likely contributing to his candidiasis. I am placing him on Diflucan and nystatin and have instructed him to rinse thoroughly after using his inhalers and I will see him in 1 month to monitor his progress. Not available 07/01/2021 11:52:23 07/29/2021 [id number] 1. Laryngoscopy performed ; clinical photos obtained. Full risks, complications, and benefits of non-operative intervention have been thoroughly discussed. Understanding was expressed, informed consent given, and we will proceed with the discussed treatment plan. There were no questions for me at the end of the office visit. 2. Rx- Refill Nystatin Rinse, Fluconazole 100mg, and prescribed Omeprazole 40mg 3. F/u in 4 weeks nstaton Not available 07/29/2021 16:21:00 His chronic hoarseness persists though perhaps slightly improved. Fiberoptic laryngoscopy today still shows laryngitis likely secondary to candidiasis. Photographs were again taken. I am continuing Diflucan and nystatin and I'm also adding omeprazole 40 mg daily in case there is a silent GERD component to his chronic laryngitis and I want to repeat his fiberoptic laryngoscopy in 1 month. Not available 07/29/2021 16:23:06 09/08/2021 [id number] 1. Flexible laryngoscopy performed and clinical images obtained. Full risks, complications, and benefits of non-operative intervention have been thoroughly discussed. Understanding was expressed, informed consent given, and we will proceed with the discussed treatment plan. There were no questions for me at the end of the office visit. 2. Continue Omeprazole daily. 3. Discontinue Nystatin rinse. 4. Continue to rinse mouth thoroughly after Advair use. 5. Follow up in 3-4 months with flexible laryngoscopy or sooner for new or worsening symptoms. [email or web address] Not available 09/08/2021 14:35:57 His chronic laryngitis is gradually improving and fiberoptic laryngoscopy today shows resolution of the previously noted fungal laryngitis. I think that the omeprazole has also been helpful and he agrees. He will continue daily omeprazole and I will repeat his fiberoptic exam in 3-4 months. Once the chronic laryngitis has completely resolved, we can switch him to famotidine long-term to treat his GERD. Not available 09/08/2021 14:38:30 01/06/2022 [id number] 1. Laryngoscopy performed ; clinical photos obtained. Full risks, complications, and benefits of non-operative intervention have been thoroughly discussed. Understanding was expressed, informed consent given, and we will proceed with the discussed treatment plan. There were no questions for me at the end of the office visit. 2. GERD precautions recommended - information sheet given to patient. 3. Rx- Famotidine 20mg- take 1 po bid daily 4. F/u prn nstaton Not available 01/06/2022 10:49:05 his chronic laryngitis has almost completely resolved on repeat fiberoptic laryngoscopy today. I am switching him from omeprazole to famotidine long-term and I also gave him instructions on lifestyle modification to help with GERD both verbal and in written form. He will otherwise follow up as needed. Not available 01/06/2022 10:51:29 05/27/2023 [id number] He is healing we ll after septoplasty, turbinate reduction and endoscopic sinus surgery and debridement was performed and septal splints were removed. He will return in 2 weeks for repeat endoscopic exam and debridement. He is specifically instructed not to use eumi-heo-wgjysyn nasal decongestant sprays going forward.He will continue to use his CPAP for his obstructive sleep apnea. Not available 05/27/2023 15:07:53 Reason for Referral None Reported. Problems No Known Problems Procedures Surgical History Date Name Laterality Status Provider Name and Address Organization Details Recorded Time 05/27/19 24 Endoscopy Nasal; Biospy, Polypectomy or Debridement completed MUNDO GIBBS MD [address] [place] [address], [id number] 05/27/2023 15:06:35 01/07/20 22 Laryngoscopy Flex completed Joy Alexandria [facility] 01/06/2022 10:47:31 09/09/19 22 Laryngoscopy Flex completed Michell Lora [facility] 09/08/2021 14:34:21 07/30/19 22 Laryngoscopy Flex completed Joy Alexandria [facility] 07/29/2021 16:19:00 07/02/19 22 Laryngoscopy Flex [facility] 07/01/2021 11:42:10 Rhinoplasty completed Nasrin Reese [facility] 07/01/2021 11:13:51 Carpal tunnel surgery completed Nasrin Reese [facility] 07/01/2021 11:14:01 Tonsillectomy completed Nasrin Reese [facility] 07/01/2021 11:14:10 Imaging Results None recorded. Procedure Notes None recorded. Medical Equipment None Reported. Allergies No known drug allergies Medications Name Sig Start Date Stop Date Status Note LastModified by Organization Details LastModified Time Prescription - Prior Authorizatio n Request active Not Available Not Available No t Available celecoxib 200 mg capsule Take 1 capsule every day by oral route. active Not Available Not Available No t Available fluconazole 100 mg tablet Take 1 tablet every day by oral route for 10 days. 2021 active Not Available Not Available Not Avai lable nystatin 100,000 unit/mL oral suspension 10 ml swish and swallow tid 2021 active Not Available Not Available Not Avai lable albuterol sulfate 2.5 mg/3 mL (0.083 %) solution for nebulization Inhale 3 mL 3 times a day by nebulizatio n route. active Not Available Not Available No t Available omeprazole 40 mg capsule,jameel yed release Take 1 capsule once daily by mouth 2021 active Not Available Not Available Not Avai lable spironolacto ne 25 mg tablet Take 1 tablet every day by oral route. active Not Available Not Available No t Available famotidine 20 mg tablet Take 1 Tablet by mouth twice daily for 30 days. active Not Available Not Available No t Available montelukast 10 mg tablet Take 1 tablet every day by oral route. active Not Available Not Available No t Available allopurinol 300 mg tablet Take 1 tablet every day by oral route. active Not Available Not Available No t Available fluticasone propionate 50 mcg/actuatio n nasal spray,suspen salvatore Morehead 1 spray every day by intranasal route. active Not Available Not Available No t Available levalbuterol HFA 45 mcg/actuatio n aerosol inhaler Inhale 2 puffs every 6 hours by inhalation route. active Not Available Not Available No t Available amlodipine active Not Available Not Av ailable Not Available Advair Diskus active Not Available Not Available Not Available levocetirizi ne 5 mg tablet Take 1 tablet every day by oral route. active Not Available Not Available No t Available Spiriva Respimat 1.25 mcg/actuatio n solution for inhalation Inhale 2 puffs every day by inhalation route. active Not Available Not Available No t Available Nucala 100 mg subcutaneous solution Inject 1 mL every 4 weeks by subcutaneou s route. active Not Available Not Available No t Available losartan potassium (bulk) active Not Available Not Available Not Available Vitals Date Recorded Body height Body mass index (BMI) Body weight Body temperature Heart rate Systolic And Diastolic Provider Name and Address Organization Details Last Updated DateTime 4 172.72 cm 50.9 kg/m2 339735. 44 g 97.3 [degF] 51 /min 139/91 mm[Hg] Mercedes Lewis [facility] 4 15:03:40 Date Recorded Body height Body mass index (BMI) Body weight Body temperature Heart rate Oxygen saturation Oxygen saturation in Arterial blood by Pulse oximetry Systolic And Diastolic Provider Name and Address Organization Details Last Updated DateTime 2 172.72 cm 51.1 kg/m2 818268. 44 g 98 [degF] 58 /min 95 % 95 % 155/91 mm[Hg] MeronMagali Hugh [facility] 2 11:22:41 Date Recorded Body height Body mass index (BMI) Body weight Body temperature Heart rate Oxygen saturation Oxygen saturation in Arterial blood by Pulse oximetry Systolic And Diastolic Provider Name and Address Organization Details Last Updated DateTime 2 172.72 cm 51.7 kg/m2 350620. 81 g 98.3 [degF] 61 /min 96 % 96 % 168/99 mm[Hg] MeronAndresDolores Reese [facility] 2 15:44:36 Date Recorded Body height Body mass index (BMI) Body weight Body temperature Heart rate Oxygen saturation Oxygen saturation in Arterial blood by Pulse oximetry Systolic And Diastolic Provider Name and Address Organization Details Last Updated DateTime 2 172.72 cm 51.1 kg/m2 282299. 04 g 97.6 [degF] 63 /min 98 % 98 % 146/96 mm[Hg] MeronAndresDolores Reese [facility] 2 14:03:00 Date Recorded Body height Body weight Body temperature Heart rate Systolic And Diastolic Provider Name and Address Organization Details Last Updated DateTime 01/06/2022 172.72 cm 325026.5 7 g 97.6 [degF] 56 /min 170/99 mm[Hg] Vianey Halljason [facility] 2 10:25:39 Social History Question Answer Notes LastModified by Organizat ion Details LastModified Time Tobacco Smoking Status Former Smoker MeronAndresDolores gauthier [facility] 07/01/2021 11:15:19 Have You Recently Traveled Abroad? No Information not available 07/01/2021 Sex: Unknown Functional Status Question Answer Note LastModified by Organization D etails LastModified Time What is your level of alcohol consumption? Moderate [email or web address] Information not available 07/01/2021 Mental Status None recorded. Family History Relationship Description Onset Age of this Age Resolved Age Notes LastModified by Organization Details LastModified Time Father Family history of malignant neoplasm [email or web address] Not available 07/01 11:15:47 Father Heart disease [email or web address] Not available 07/01 11:16:09 Father Hypertensive disorder [email or web address] Not available 07/01 11:16:19 Mother Hypertensive disorder [email or web address] Not available 07/01 11:16:19 Mother Asthma [email or web address] Not available 07/01/2021 11:16:31 Mother Acute stroke [email or web address] Not candida ilable 07/01/2021 11:16:38 Medical History Condition Response Diabetes N Bleeding Disorder N Arthritis Y Anesthesia Complications N Cancer N Hypertension Y Asthma Y Past Encounters Encounter ID Performer Location Encounter Start Date Encounter Closed Date Diagnosis/Indication Diagnosis SNOMED-CT Code Diagnosis ICD10 Code Diagnosis Note [id number] MD [facility]ENA DIAZ [facility] [address] [facility] [place] [address] 07/01/2021 11:01:53 07/01/2021 11:48:35 Chronic hoarseness 1321262583 105 R49.0 Deviated nasal septum 12 7732058 J34.2 - left Asthma 964302556 J45.90 9 Candidiasi s of the esophagus 41571783 B37.81 [id number] MD SALENA DIAZ [facility] [address] [facility] [place] [address] 07/29/2021 14:57:37 07/29/2021 16:24:46 Chronic hoarseness 8930113640 105 R49.0 Candidiasi s of the esophagus 40127620 B37.81 Asthma 449996489 J45.90 9 Acid reflux 296951341 K2 1.9 Deviated nasal septum 12 9964613 J34.2 - left [id number] MD SALENA DIAZ [facility] [address] [place] [address] 09/08/2021 13:42:00 09/08/2021 14:49:05 Chronic hoarseness 0718936692 105 R49.0 - Improving some - 09/08/2021 Candidiasi s of the esophagus 39475927 B37.81 - Nystatin and Fluconazol e prescribed - 07/29/2021 Asthma 552870112 J45.90 9 - Uses Advair Acid reflux 655692599 K2 1.9 - Omeprazole prescribed - 07/29/2021 Deviated nasal septum 12 1845971 J34.2 - left COVID-19 567804702 U07.1 - April 2020 and May 2021 [id number] MUNDO GIBBS MD [facility] [address] [place] [address] 01/06/2022 10:18:48 01/06/2022 10:49:42 Chronic hoarseness 3610698755 105 R49.0 - Improved Candidiasi s of the esophagus 64989610 B37.81 resolved Asthma 438648842 J45.90 9 - Uses Advair Laryngopha ryngeal reflux 769487442 K21.9 [id number] MUNDO GIBBS MD [facility] [address] [place] [address] 05/27/2023 14:29:41 05/27/2023 15:49:33 Deviated nasal septum 043646243 J34.2 - left Health Concerns Section Related Observation LastModified by Organization Detai ls LastModified Time None Recorded Concern Status LastModified by Organization Details LastModified Time None Recorded Advance Directives Directive None Recorded Payers Insurance Date Sequence Insurance Name Policy Number Policy Cantrell Covered Member ID Cantrell Member ID Guarantor Name 06/01/2023 1 JERALD-DE: G[place]ALD [place] [id number] Keyon Bell [id number] Keyon Bell
--- OUTSIDE RECORDS SUMMARY | 2024-11-26 12:02 | XMS_ITS | Clinical Summary ---
Author Organization [facility] Address [address] [place] [address] Phone Care Team Providers Care Instrument Repair Specialist Name Role Phone Binta Roche APRN Primary Care Provider Allergies Active Allergy Reactions Criticality Noted Date Comments Lisinopril Cough 01/18/2023 Naproxen Nausea Only 09/23/2020 Spironolactone Other (See Comments) 01/22/2022 Medications celecoxib (CELEBREX) 200 mg Oral Capsule TAKE 1 CAPSULE BY MOUTH DAILY 30 Capsule 1 03/30/20 21 Active allopurinoL (ZYLOPRIM) 300 mg Oral Tablet 09/17/19 23 Active amLODIPine (NORVASC) 10 mg Oral Tablet Take 10 mg by mouth daily. 08/10/19 23 Active famotidine (PEPCID) 20 mg Oral Tablet Take 20 mg by mouth 2 times daily. 09/29/19 23 Active Levalbuterol Tartrate (XOPENEX) 45 mcg/actuation Inhl HFA Aerosol Inhaler USE 2 PUFFS EVERY 6 HOURS NEEDED FOR SHORTNESS OF BREATH OR WHEEZING 09/29/19 23 Active losartan (COZAAR) 100 mg Oral Tablet TAKE 1 TABLET BY MOUTH DAILY FOR HIGH BLOOD PRESSURE 07/24/19 23 Active hydroCHLOROthiazid e (HYDRODIURIL) 25 mg Oral Tablet Take 25 mg by mouth daily. 08/10/19 23 Active metoprolol succinate (TOPROL-XL) 25 mg Oral Tablet Sustained Release 24 hr Take 25 mg by mouth daily. 09/29/19 23 Active montelukast (SINGULAIR) 10 mg Oral Tablet Take 10 mg by mouth every evening. 09/29/19 Active NUCALA 100 mg/mL SubQ Auto-Injector 09/08/19 Active WEGOVY 1.7 mg/0.75 mL SubQ Pen Injector INJECT 1.7 MG (0.75 ML) SUBCUTANEOUSLY ONCE WEEKLY. ADMINISTER WEEKS 13 THROUGH 16 OF THERAPY. 09/10/19 Active SPIRIVA RESPIMAT 2.5 mcg/actuation Inhl Mist INHALE 2 PUFFS INTO THE LUNGS ONCE DAILY 09/03/19 Active ADVAIR DISKUS 500-50 mcg/dose Inhl Disk with Device USE 1 PUFF 2 TIMES DAILY. 09/10/19 Active fluticasone propionate (FLONASE) 50 mcg/actuation Nasl [place], Suspension PLACE 1 TO 2 SPRAYS IN EACH NOSTRIL ONCE DAILY. 08/11/19 Active Olopatadine 0.6 % Nasl [place], Non-Aerosol USE 2 SPRAYS IN EACH NOSTRIL NIGHTLY AT BEDTIME 08/25/19 Active telmisartan (MICARDIS) 40 mg Oral Tablet Take 40 mg by mouth daily. 10/22/19 23 Active levocetirizine (XYZAL) 5 mg Oral Tablet Take 5 mg by mouth every evening. Active oxyCODONE (ROXICODONE) 5 mg Oral Tablet Take 1 Tablet by mouth every 4 hours as needed for Major Surgery/Trauma (G89.18) for up to 5 doses. 5 Tablet 01/19/20 Active Additional Information Patient not taking.Reason: Therapy Completed, Reported on 05/11/2023 methylPREDNISolone (MEDROL DOSPACK) 4 mg Oral Tablets, Dose PackIndications:Pe roneal tendinitis of right lower extremity,Primary localized osteoarthrosis of right ankle and foot,Loose body in right ankle and foot joint,Cavovarus deformity of foot follow package directions 21 Tablet 03/26/20 Active Additional Information Patient not taking.Reason: Therapy Completed, Reported on 04/26/2024 Active Problems Problem Noted Date Diagnosed Date Left carpal tunnel syndrome 07/04/2023 Trigger finger of right thumb 12/23/2022 Overview (12/23/2022): Added automatically from request for surgery [id number] Localized osteoarthritis of left knee 09/23/2020 Bilateral knee pain 09/02/2020 RADHA (obstructive sleep apnea) 09/28/2017 Hypertension 09/28/2017 Allergic rhinitis due to pollen 09/28/2017 Class 3 severe obesity due t o excess calories without serious comorbidity with body mass index (BMI) of 50.0 to 59.9 in adult 09/28/2017 Surgical History Surgery Date Site/Laterality Comments FINGER TRIGGER RELEASE 01/18/2023 Hand/Wrist/Right Right Thumb Trigger Finger Release, Right Carpal Tunnel Release; Surgeon: Gaurav Khan MD; Location: [facility]; Service: Orthopedics Medical History Medical History Date Comments RADHA (obstructive sleep apnea) 09/28/2017 us es cpap Hypertension 09/28/2017 Allergic rhinitis due to pollen 09/28/2017 Class 3 severe obesity due t o excess calories without serious comorbidity with body mass index (BMI) of 50.0 to 59.9 in adult 09/28/2017 Social History Tobacco Use Types Packs/Day Years Used Date Smoking Tobacco: Former Cigarettes Q uit: 05/02/2009 Smokeless Tobacco: Never Tobacco Cessation:Counseling Given: Not Answered Alcohol Use Standard Drinks/Week Comments Never 0 (1 standard drink = 0.6 oz pur e alcohol) Sex and Gender Information Value Date Recorded Sex Assigned at Not on file Legal Sex Male 5:36 AM EDT Gender Identity Not on file Sexual Orientation Not on file Obstetrics History Last Filed Vital Signs Vital Sign Reading Time Taken Comments Blood Pressure 157/85 01/18/2023 12:35 PM EDT Pulse 69 01/18/2023 12:35 PM EDT Temperature 36.5 C (97.7 F) 01/18/2023 12:35 PM EDT Respiratory Rate 20 01/18/2023 12:35 PM EDT Oxygen Saturation 97% 01/18/2023 12:35 PM EDT Inhaled Oxygen Concentration - - Weight 154.2 kg (340 lb) 03/26/2024 9:56 AM EST Height 172.7 cm (5' 8 ) 03/26/2024 9:56 AM EST Body Mass Index 51.7 03/26/2024 9:56 AM EST Plan of Treatment Health Maintenance Due Date Last Done Comments Annual Wellness Exam 1973 Hepatitis B Vaccine (1 of 3 - 19+ 3-dose series) 1989 Cologuard 2015 Colon Cancer Screening 2015 Colonoscopy 2015 FIT 2015 Sigmoidoscopy 2015 Virtual Colonography 2015 Influenza Vaccine (#1) 2024 , 03/10/2023, 01/07/2022 DTaP/TDaP/Td (2 - Td or Tdap) 01/24/2034 01/25/2024 Pneumococcal Vaccine 50+ Completed 04/28/2022 Zoster Completed 08/23/2022, 04/28/2022 COVID-19 Vaccine Completed 01/25/2024, 12/2022, 01/07/2022, Additional history exists Meningococcal B Vaccine Aged Out No l onger eligible based on patient's age to complete this topic Insurance ANTHEM PPO ANTHEM PPO ANTHEM PPO ANTHEM PPO ANTHEM PPO Member Subscriber Plan / Payer (Ef fective 2017-Present) Name:Keyon Bell Relation to Subscriber:Self Name:Keyon Bell Payer ID:[id number] (NAIC) Type:Not on file Address: [address] [place] [id number] Care Teams Instrument Repair Specialist Relationship Specialty Start Date End Date Binta Roche APRN [address] [place] [address] PCP - General Nurse Practitioner 11/22/22
--- OUTSIDE RECORDS SUMMARY | 2024-11-26 12:02 | XMS_ITS | Clinical Summary ---
Author Organization [facility] Address [address] [place] [address] Care Team Providers Care Mechanical Technical Service Specialist Name Role Phone Unavailable Primary Care Provider Unavailabl e Source Comments This information has been disclosed to you from confidential records protectedfrom disclosure by state law. You shall make no further disclosure of thisinformation without the specific, written, and informed release of theindividual to whom it pertains, or as otherwise permitted by law. A generalauthorization for the release of medical or other information is not sufficientfor the purposes of therelease of HIV test results or diagnoses. [id number] Active Problems Problem Noted Date Diagnosed Date Brachial neuritis or radiculitis 03/16/2010 Overview (01/30/2015): ICD-10 Transition Encounter for long-term (current) use of other m edications 03/17/2009 Thoracic or lumbosacral neur itis or radiculitis, unspecified 11/07/2008 Backache 11/07/2008 Overview (01/30/2015): ICD-10 Transition Myalgia and myositis 11/07/2008 Overview (01/30/2015): ICD-10 Transition Cramp of limb 10/21/2008 Social History Tobacco Use Types Packs/Day Years Used Date Smoking Tobacco: Never Assessed Sex and Gender Information Value Date Recorded Sex Assigned at Not on file Legal Sex Male 4:17 PM EST Gender Identity Not on file Sexual Orientation Not on file Plan of Treatment Not on file
== END 2024-11-22 23:59 | disposition home or self-care (01) ==
LOC: LAB.DROPOF 11-26 11:58
PROVIDERS: PCP Nurse Practitioner; Visit Provider Nurse Practitioner
DX: E78.2 Mixed hyperlipidemia (principal); I10 Essential (primary) hypertension; E66.01 Morbid (severe) obesity due to excess calories; Z12.5 Encounter for screening for malignant neoplasm of prostate; Z68.43 Body mass index [BMI] 50.0-59.9, adult
CPT/HCPCS: 80053; 80061; 82607; 85025; G0103

== ENCOUNTER 2025-02-20 12:00 | Outpatient (CLI) | payer BC, SELFPAY ==
[2025-02-20 15:24] LABS: Hemoglobin A1C 4.8 % (4.0-6.0)
[2025-02-20 15:53] LABS: Alanine Aminotransferase 24 U/L (12-78); Albumin Level 3.9 g/dl (3.5-5.0); Albumin/Globulin Ratio 1.7 (1.1-1.8); Alkaline Phosphatase 121 U/L (38-126); Anion Gap 10.5 mEq/L (5-15); Aspartate Amino Transferase 32 U/L (17-59); Bilirubin,Total 1.0 mg/dl (0.2-1.3); Blood Urea Nitrogen 11 mg/dl (9-20); Calcium 9.0 mg/dl (8.4-10.2); Carbon Dioxide 27 mmol/L (22.0-30.0); Chloride 105 mmol/L (98-107); Creatinine,Serum 0.70 mg/dl (0.66-1.25); Estimated Glomerular Filt Rate 118 ml/min (>60); GFR (African American) 142 ML/MIN (>60); Globulin 2.3 g/dL (1.3-3.2); Glucose 101 mg/dl (74-100); Potassium 3.5 mmoL/L (3.5-5.1); Sodium 139 mmol/L (136-145); Total Protein,Serum 6.2 g/dl (6.3-8.2)
[2025-02-20 16:22] LABS: Thyroid Stimulating Hormone 2.15 uIU/mL (0.465-4.68)
--- OUTSIDE RECORDS SUMMARY | 2025-02-21 12:37 | XMS_ITS | Clinical Summary ---
Author Organization Healthcare Address [address] [place] [address] Care Team Providers Care Board Design Engineer Name Role Phone Brock Edwards MD Primary Care Provider + [phone] Family History Medical History Relation Name Comments [...] of Treatment Not on file Care Teams Board Design Engineer Relationship Specialty Start Date End Date Brock Edwards MD [address] [place] [address] PCP - General 09/12/20
--- OUTSIDE RECORDS SUMMARY | 2025-02-21 12:37 | XMS_ITS ---
Author Organization Unknown ENCOUNTERS Encounter Performer Location Date Diagnosis Diagnosis Status Pre Admit [facility] [address] [place] [address] [phone] Emergency [facility] [address] [facility] [address] [place] [address] [id number] MAR[place] Emergency [facility] [address] [place] [address] [id number] MARLEN Pre Admit [facility] [address] [facility] [address] [place] [address] [phone] Pre Admit [facility] [address] [place] [address] [phone] Emergency [facility] [address] [place] [address] [id number] [place] Emergency [facility] [address] [place] [address] [id number] [place] Emergency [facility] [address] [place] [address] [id number] [place] Emergency [facility] [address] [place] [address] [phone] [place] Emergency [facility] [address] [facility] [address] [place] [address] [phone] MARLEN *Note: Encounters from your own facility or health system may be excluded. Allergies, Adverse Reactions, Alerts Allergen Type Severity Identification Date spironolactone drug allergy 0 [id number] lisinopril drug allergy 0 [id number] naproxen drug allergy 0 [id number] albuterol drug allergy 0 [id number] Medications Name Date Quantity Days Supplied GPI Number
--- OUTSIDE RECORDS SUMMARY | 2025-02-21 12:37 | XMS_ITS | Clinical Summary ---
Author Organization [facility] Address [address] [facility] [place] [address] Phone Care Team Providers Care Adult Basic Education Instructor Name Role Phone Binta Roche APRN Primary Care Provider [phone] Allergies Active Allergy Reactions Criticality Noted Date [...] Active fluticasone propionate (FLONASE) 50 mcg/actuation Nasl [place], Suspension PLACE 1 TO 2 SPRAYS IN EACH NOSTRIL ONCE DAILY. 08/11/19 Active Olopatadine 0.6 % Nasl [place], Non-Aerosol USE 2 SPRAYS IN EACH NOSTRIL [...] (12/23/2022): Added automatically from request for surgery [id number] Localized osteoarthritis of left knee 09/23/2020 Bilateral [...] Tunnel Release; Surgeon: Gaurav Khan MD; Location: [facility]; Service: Orthopedics Medical History Medical History Date Comments RDAHA (obstructive sleep apnea) 09/28/2017 us es cpap Hypertension 09/28/2017 Allergic rhinitis due to pollen 09/28/2017 Class 3 severe obesity due t o excess calories without serious comorbidity with body mass index (BMI) of 50.0 to 59.9 in adult ([facility]) 09/28/2017 Social History Tobacco Use Types Packs/Day [...] FIT 2015 Sigmoidoscopy 2015 Virtual Colonography 2015 COVID-19 Vaccine ( season) 2024 01/25/2024, 03/10/2023, 01/07/2022, Additional history exists Influenza Vaccine (#1) 2024 , 03/10/2023, 01/07/2022 DTaP/TDaP/Td (2 - Td or Tdap) 01/24/2034 01/25/2024 Pneumococcal Vaccine 50+ Completed 04/28/2022 Zoster Completed 08/23/2022, 04/28/2022 Meningococcal B Vaccine Aged Out No l onger eligible based on patient's age to complete this topic Insurance ANTHEM PPO ANTHEM PPO ANTHEM PPO ANTHEM PPO ANTHEM PPO Care Teams Adult Basic Education Instructor Relationship Specialty Start Date End Date Binta Roche APRN [address] [facility] [address] [place] [address] PCP - General Nurse Practitioner 11/22/22
--- OUTSIDE RECORDS SUMMARY | 2025-02-21 12:37 | XMS_ITS | Clinical Summary ---
Author Organization [facility] Address [address] [place] [address] Care Team Providers Care President [employer] Name Role Phone Unavailable Primary Care Provider [...] therelease of HIV test results or diagnoses. [id number] Active Problems Problem Noted Date Diagnosed [...]
== END 2025-02-20 23:59 | disposition home or self-care (01) ==
LOC: LAB.DROPOF 02-21 12:34
PROVIDERS: PCP Nurse Practitioner; Visit Provider Nurse Practitioner
DX: I10 Essential (primary) hypertension (principal); E66.9 Obesity, unspecified; Z86.39 Personal history of other endocrine, nutritional and metabolic disease
CPT/HCPCS: 80053; 83036; 84443

== ENCOUNTER 2025-04-22 15:00 | Outpatient (CLI) | payer BC, SELFPAY ==
[2025-04-22 19:06] LABS: Coronavirus 19, PCR Not Detected (NotDetected); Influenza A, PCR Not Detected (NotDetected); Influenza B, PCR Not Detected (NotDetected)
--- OUTSIDE RECORDS SUMMARY | 2025-04-23 12:18 | XMS_ITS | Clinical Summary ---
Author Organization [facility] Address [address] [place] [address] Care Team Providers Care Sales Marketing Coordinator Name Role Phone Unavailable Primary Care Provider [...] therelease of HIV test results or diagnoses. [id number] Active Problems Problem Noted Date Diagnosed [...]
--- OUTSIDE RECORDS SUMMARY | 2025-04-23 12:18 | XMS_ITS | Clinical Summary ---
Author Organization Healthcare Address [facility] [place] [address] Care Team Providers Care Merchandise Processor Name Role Phone Brock Edwards MD Primary Care Provider [phone] Family History Medical History Relation Name Comments [...] of Treatment Not on file Care Teams Merchandise Processor Relationship Specialty Start Date End Date Brock Edwards MD [id number] PCP - General 09/12/20
--- OUTSIDE RECORDS SUMMARY | 2025-04-23 12:18 | XMS_ITS | Clinical Summary ---
Author Organization [facility] Address [address] [facility] [place] [address] Phone Care Team Providers Care Account Manager Trainee Name Role Phone Binta Roche APRN Primary Care Provider [phone] Allergies Active Allergy Reactions Criticality Noted Date [...] Active fluticasone propionate (FLONASE) 50 mcg/actuation Nasl [place], Suspension PLACE 1 TO 2 SPRAYS IN EACH NOSTRIL ONCE DAILY. 08/11/19 Active Olopatadine 0.6 % Nasl [place], Non-Aerosol USE 2 SPRAYS IN EACH NOSTRIL [...] (12/23/2022): Added automatically from request for surgery [id number] Localized osteoarthritis of left knee 09/23/2020 Bilateral [...] Tunnel Release; Surgeon: Gaurav Khan MD; Location: [facility]; Service: Orthopedics Medical History Medical History Date Comments RADHA (obstructive sleep apnea) 09/28/2017 us es cpap Hypertension 09/28/2017 Allergic rhinitis due to pollen 09/28/2017 Class 3 severe obesity due t o excess calories without serious comorbidity with body mass index (BMI) of 50.0 to 59.9 in adult ([facility]) 09/28/2017 Social History Tobacco Use Types Packs/Day [...] PPO ANTHEM PPO ANTHEM PPO Care Teams Account Manager Trainee Relationship Specialty Start Date End Date Binta Roche APRN [address] [facility] [address] [place] [address] PCP - General Nurse Practitioner 11/22/22
== END 2025-04-22 23:59 | disposition home or self-care (01) ==
LOC: LAB.DROPOF 04-23 12:16
PROVIDERS: PCP Nurse Practitioner; Visit Provider Nurse Practitioner
DX: J06.9 Acute upper respiratory infection, unspecified (principal)
CPT/HCPCS: 87631